=== PATIENT | female | born 1930 | race Caucasian/White ===

== ENCOUNTER 2017-04-15 09:53 | Emergency (ER) | payer MEDICARE ==
[2017-04-15] MEDS ORDERED: Sodium Chloride 0.9% 1000 ML 1,000 ML IV STA ×2 (10:07→11:00)
--- NOTE | 2017-04-15 10:11 | ERPHSYRPT ---
- History of Present Illness Time Seen by Provider: 04/15/17 09:57 Source: patient Exam Limitations: no limitations Patient Subjective Stated Complaint: fell last night around 10pm. was unable to get up. used help button but it was not working. states legs feel wobbly. unsure if she passed out. Triage Nursing Assessment: patient a/o times three. skin w/d, color pale. resp easy. denies any pain except soreness from crawling around on the floor all night. states has chronic back pain. valle without difficulty. rukhsana. Physician History: FOR THE PAST MONTH PT HAS BEEN STUMBLING WITH WEAKNESS IN THE LEGS; FOR THE PAST 3 DAYS PT HAS HAD A NON-PRODUCTIVE COUGH. ABOUT 12 HOURS AGO PT GOT UP TO GO TO THE BATHROOM AND AGAIN HER LEGS BECAME WEAK WITH PT FALLING ON THE FLOOR. PT PRESSED HER HELP BUTTON BUT IT DID NOT WORK PROPERLY. PT STATES SHE IS SORE ALL OVER AND SHE HAS CHRONIC BACK PAIN. PT DENIES SHORTNESS OF AIR, FEVER, VOMITING, NUMBNESS. Allergies/Adverse Reactions: No Known Drug Allergies Allergy (Verified 04/15/17 10:11) Home Medications: Lisinopril [Prinivil] 25 mg PO DAILY 02/16/12 [History] Aspirin [Aspirin EC] 81 mg PO DAILY 11/24/14 [History] Fluoxetine HCl [Prozac] 20 mg PO DAILY 11/24/14 [History] Levothyroxine Sodium 25 Mcg [Synthroid 25 Mcg] 25 mcg PO DAILY 11/24/14 [ History] Antiox.mv No.10/Omeg3s/Lut/Rdew [I-Caps with Lutein-[place] 3 Sfg] 1 each PO DAILY 04/15/17 [History] Cyclobenzaprine HCl [Flexeril] 5 mg PO BIDPRN PRN 04/15/17 [History] Lactobacillus Rhamnosus GG [Culturelle] 1 each PO DAILY 04/15/17 [History] Lisinopril [Lisinopril] 10 mg PO DAILY 04/15/17 [History] Tramadol HCl 50 mg [Ultram 50 mg] 50 mg PO Q6HPRN PRN 04/15/17 [History] Hx Tetanus, Diphtheria Vaccination/Date Given: No Hx Influenza Vaccination/Date Given: Yes Hx Pneumococcal Vaccination/Date Given: Yes Immunizations Up to Date: Yes - Review of Systems Constitutional: No Fever Respiratory: Cough, No Dyspnea Abdominal/Gastrointestinal: No Vomiting Neurological: Other (WEAKNESS IN THE LEGS FOR THE PAST MONTH.) All Other Systems: Reviewed and Negative - Past Medical History Pertinent Past Medical History: Yes Neurological History: No Pertinent History ENT History: Cataracts Cardiac History: Other Respiratory History: No Pertinent History Endocrine Medical History: Hypothyroidism Musculoskeletal History: No Pertinent History, Arthritis GI Medical History: No Pertinent History, GERD History: No Pertinent History Psycho-Social History: No Pertinent History Female Reproductive Disorders: No Pertinent History Other Medical History: pacemaker - Past Surgical History Past Surgical History: Yes Neuro Surgical History: No Pertinent History Cardiac: Cardiac Catheterization, Pacemaker Respiratory: No Pertinent History Gastrointestinal: Appendectomy, Cholecystectomy Genitourinary: No Pertinent History Musculoskeletal: Orthopedic Surgery Female Surgical History: Hysterectomy Other Surgical History: tonsils - Social History Smoking Status: Former smoker Exposure to second hand smoke: Yes Drug Use: none Patient Lives Alone: Yes - Female History Hx Now: No - Nursing Vital Signs Nursing Vital Signs: Initial Vital Signs Temperature 97.3 F 04/15/17 09:54 Pulse Rate 77 04/15/17 09:54 Respiratory Rate 16 04/15/17 09:54 Blood Pressure 154/75 04/15/17 09:54 O2 Sat by Pulse Oximetry 93 L 04/15/17 09:54 Pain Scale Pain Intensity 0 - Physical Exam General Appearance: alert Eye Exam: PERRL/EOMI, eyes nml inspection Ears, Nose, Throat Exam: TMs normal, dry mucous membranes, pharyngeal erythema ( MINIMAL) Neck Exam: normal inspection, No carotid bruit Respiratory Exam: lungs clear Cardiovascular Exam: normal heart sounds Gastrointestinal/Abdomen Exam: soft, normal bowel sounds, No tenderness Back Exam: normal inspection, No vertebral tenderness Extremity Exam: normal inspection, normal range of motion, No pedal edema Neurologic Exam: alert, oriented x 3, cooperative, normal mood/affect, sensation nml, No motor deficits Skin Exam: warm, dry SpO2 Interpretation: normal SpO2: 93 Oxygen Delivery: Room Air - Course Nursing assessment & vital signs reviewed: Yes EKG Interpreted by Me: RATE (72), Sinus Rhythm, Left Bradford Deviation, NORMAL INTERVALS - Radiology Exams Chest X-ray Interpretation: Interpreted by me, No Pneumonia - CT Exams Head CT Interpretation: Tele-radiologist Report (CHRONIC CHANGES. SINUS DISEASE.) Ordered Tests: Active Orders 24 hr Category Date Time Status EKG-ER Only STAT Care 04/15/17 10:07 Active IV Insertion STAT Care 04/15/17 10:07 Active CHEST 2 VIEWS (PA AND LAT) Stat Exams 04/15/17 10:08 Taken HEAD WITHOUT CONTRAST [CT] Stat Exams 04/15/17 10:44 Taken CBC W DIFF Stat Lab 04/15/17 10:00 Completed CMP Stat Lab 04/15/17 10:00 Completed CULTURE, THROAT Stat Lab 04/15/17 10:20 Received CULTURE,URINE Stat Lab 04/15/17 11:30 Received [place] Screen Stat Lab 04/15/17 10:00 Completed STREP SCREEN-BETA A Stat Lab 04/15/17 10:20 Completed TROPONIN Q3H Lab 04/15/17 10:00 Completed TROPONIN Q3H Lab 04/15/17 13:15 Ordered TROPONIN Q3H Lab 04/15/17 16:15 Ordered TROPONIN Q3H Lab 04/15/17 19:15 Ordered TROPONIN Q3H Lab 04/15/17 22:15 Ordered UA W/ MICROSCOPIC Stat Lab 04/15/17 11:30 Completed Medication Summary Discontinued Medications Generic Name Dose Route Start Last Admin Trade Name Freq PRN Reason Stop Dose Admin Sodium Chloride 1,000 mls @ 999 mls/hr 04/15/17 10:07 04/15/17 10:35 Sodium Chloride 0.9% 1000 Ml IV 04/15/17 11:07 999 mls/hr .Q1H1M STA Administration Sodium Chloride Confirm 04/15/17 10:28 Sodium Chloride 0.9% 1000 Ml Administered 04/15/17 10:29 Dose 1,000 mls @ ud .ROUTE .STK-MED ONE Sodium Chloride 1,000 mls @ 999 mls/hr 04/15/17 11:00 04/15/17 12:08 Sodium Chloride 0.9% 1000 Ml IV 04/15/17 12:00 999 mls/hr .Q1H1M STA Administration Ceftriaxone Sodium/Dextrose 1 g in 50 mls @ 100 mls/hr 04/15/17 11:28 11:34 Rocephin 1 Gm-D5w 50 Ml Bag IV 04/15/17 11:57 100 mls/hr STAT STA Administration Ceftriaxone Sodium/Dextrose Confirm 04/15/17 11:33 Rocephin 1 Gm-D5w 50 Ml Bag Administered 04/15/17 11:34 Dose 1 g in 50 mls @ ud IV .STK-MED ONE Sodium Chloride Confirm 04/15/17 12:07 Sodium Chloride 0.9% 1000 Ml Administered 04/15/17 12:08 Dose 1,000 mls @ ud .ROUTE .STK-MED ONE Lab/Rad Data: Laboratory Result Diagrams 04/15/17 10:00 04/15/17 10:00 Laboratory Results 04/15/17 04/15/17 04/15/17 Range/Units 11:30 10:20 10:20 WBC (4.0-10.5) K/mm3 RBC (4.1-5.4) M/mm3 Hgb (12.0-16.0) gm/dl Hct (35-47) % MCV (78-100) fl MCH (26-32) pg MCHC (32-36) g/dl RDW (11.5-14.0) % Plt Count (150-450) K/mm3 MPV (6-9.5) fl Gran % (36.0-66.0) % Lymphocytes % (24.0-44.0) % Monocytes % (0.0-12.0) % Eosinophils % (0.00-5.0) % Basophils % (0.0-0.4) % Basophils # (0-0.4) Sodium (136-145) mEq/L Potassium (3.5-5.1) mEq/L Chloride (98-107) mEq/L Carbon Dioxide (21-32) mEq/L Anion Gap (5-15) MEQ/L BUN (9-20) mg/dL Creatinine (0.55-1.30) mg/dl Estimated GFR ML/MIN Glucose (70-110) MG/DL Calcium (8.5-10.1) mg/dL Total Bilirubin (0.2-1.0) mg/dL AST (15-37) U/L ALT (12-78) U/L Alkaline Phosphatase (46-116) U/L Troponin I (0.000-0.056) ng/ml Serum Total Protein (6.4-8.2) gm/dL Albumin (3.4-5.0) g/dL Ur Collection Type VOID Urine Color YELLOW (YELLOW) Urine Appearance HAZY (CLEAR) Urine pH 5.0 (5-6) Ur Specific Winder 1.020 (1.005-1.025) Urine Protein NEGATIVE (Negative) Urine Ketones SMALL (NEGATIVE) Urine Blood 250 (0-5) Oscar/ul Urine Nitrite NEGATIVE (NEGATIVE) Urine Bilirubin NEGATIVE (NEGATIVE) Urine Urobilinogen NORMAL (0-1) mg/dL Ur Leukocyte Esterase TRACE (NEGATIVE) Urine Microscopic RBC 5-10 (0-2) /HPF Urine Microscopic WBC 2-5 (0-5) /HPF Ur Epithelial Cells FEW (FEW) /HPF Urine Bacteria MODERATE (NEGATIVE) /HPF Hyaline Casts 5-10 (0-2) /LPF Urine Mucus SLIGHT (NEGATIVE) /HPF Urine Culture Reflexed YES (NO) Urine Glucose NEGATIVE (NEGATIVE) mg/dL Monoscreen (Negative) Influenza Type A Ag NEGATIVE (NEGATIVE) Influenza Type B Ag NEGATIVE (NEGATIVE) RSV (PCR) NEGATIVE (Negative) Streptococcus Screen NEGATIVE (Negative) Specimen Received 04/15/17 1130 04/15/17 04/15/17 04/15/17 Range/Units 10:00 10:00 10:00 WBC (4.0-10.5) K/mm3 RBC (4.1-5.4) M/mm3 Hgb (12.0-16.0) gm/dl Hct (35-47) % MCV (78-100) fl MCH (26-32) pg MCHC (32-36) g/dl RDW (11.5-14.0) % Plt Count (150-450) K/mm3 MPV (6-9.5) fl Gran % (36.0-66.0) % Lymphocytes % (24.0-44.0) % Monocytes % (0.0-12.0) % Eosinophils % (0.00-5.0) % Basophils % (0.0-0.4) % Basophils # (0-0.4) Sodium 139 (136-145) mEq/L Potassium 4.4 (3.5-5.1) mEq/L Chloride 103 (98-107) mEq/L Carbon Dioxide 25.4 (21-32) mEq/L Anion Gap 15.0 (5-15) MEQ/L BUN 34 H (9-20) mg/dL Creatinine 1.56 H (0.55-1.30) mg/dl Estimated GFR 34 ML/MIN Glucose 102 (70-110) MG/DL Calcium 9.2 (8.5-10.1) mg/dL Total Bilirubin 0.40 (0.2-1.0) mg/dL AST 18 (15-37) U/L ALT 18 (12-78) U/L Alkaline Phosphatase 117 H (46-116) U/L Troponin I < 0.017 (0.000-0.056) ng/ml Serum Total Protein 7.4 (6.4-8.2) gm/dL Albumin 3.6 (3.4-5.0) g/dL Ur Collection Type Urine Color (YELLOW) Urine Appearance (CLEAR) Urine pH (5-6) Ur Specific Winder (1.005-1.025) Urine Protein (Negative) Urine Ketones (NEGATIVE) Urine Blood (0-5) Oscar/ul Urine Nitrite (NEGATIVE) Urine Bilirubin (NEGATIVE) Urine Urobilinogen (0-1) mg/dL Ur Leukocyte Esterase (NEGATIVE) Urine Microscopic RBC (0-2) /HPF Urine Microscopic WBC (0-5) /HPF Ur Epithelial Cells (FEW) /HPF Urine Bacteria (NEGATIVE) /HPF Hyaline Casts (0-2) /LPF Urine Mucus (NEGATIVE) /HPF Urine Culture Reflexed (NO) Urine Glucose (NEGATIVE) mg/dL Monoscreen NEGATIVE (Negative) Influenza Type A Ag (NEGATIVE) Influenza Type B Ag (NEGATIVE) RSV (PCR) (Negative) Streptococcus Screen (Negative) Specimen Received 04/15/17 Range/Units 10:00 WBC 8.4 (4.0-10.5) K/mm3 RBC 4.28 (4.1-5.4) M/mm3 Hgb 12.1 (12.0-16.0) gm/dl Hct 38.5 (35-47) % MCV 90.0 (78-100) fl MCH 28.3 (26-32) pg MCHC 31.4 L (32-36) g/dl RDW 13.5 (11.5-14.0) % Plt Count 264 (150-450) K/mm3 MPV 11.4 H (6-9.5) fl Gran % 65.9 (36.0-66.0) % Lymphocytes % 17.7 L (24.0-44.0) % Monocytes % 15.1 H (0.0-12.0) % Eosinophils % 0.8 (0.00-5.0) % Basophils % 0.5 (0.0-0.4) % Basophils # 0.04 (0-0.4) Sodium (136-145) mEq/L Potassium (3.5-5.1) mEq/L Chloride (98-107) mEq/L Carbon Dioxide (21-32) mEq/L Anion Gap (5-15) MEQ/L BUN (9-20) mg/dL Creatinine (0.55-1.30) mg/dl Estimated GFR ML/MIN Glucose (70-110) MG/DL Calcium (8.5-10.1) mg/dL Total Bilirubin (0.2-1.0) mg/dL AST (15-37) U/L ALT (12-78) U/L Alkaline Phosphatase (46-116) U/L Troponin I (0.000-0.056) ng/ml Serum Total Protein (6.4-8.2) gm/dL Albumin (3.4-5.0) g/dL Ur Collection Type Urine Color (YELLOW) Urine Appearance (CLEAR) Urine pH (5-6) Ur Specific Winder (1.005-1.025) Urine Protein (Negative) Urine Ketones (NEGATIVE) Urine Blood (0-5) Oscar/ul Urine Nitrite (NEGATIVE) Urine Bilirubin (NEGATIVE) Urine Urobilinogen (0-1) mg/dL Ur Leukocyte Esterase (NEGATIVE) Urine Microscopic RBC (0-2) /HPF Urine Microscopic WBC (0-5) /HPF Ur Epithelial Cells (FEW) /HPF Urine Bacteria (NEGATIVE) /HPF Hyaline Casts (0-2) /LPF Urine Mucus (NEGATIVE) /HPF Urine Culture Reflexed (NO) Urine Glucose (NEGATIVE) mg/dL Monoscreen (Negative) Influenza Type A Ag (NEGATIVE) Influenza Type B Ag (NEGATIVE) RSV (PCR) (Negative) Streptococcus Screen (Negative) Specimen Received - Departure Time of Disposition: 12:18 Departure Disposition: Home Clinical Impression: DEHYDRATION, SINUSITIS, UTI, HYPOTHYROIDISM, ARTHRITIS, GERD, WEAKNESS Condition: Fair Critical Care Time: No Referrals: KIERRA PETERSEN [Primary Care Provider] - Instructions: Dehydration -- Adult, Sinusitis, Prevent Falls Additional Instructions: FOLLOW UP WITH PRIVATE DOCTOR TOMORROW. DRINK MORE WATER. Prescriptions: Smz/Tmp Ds Tablet [Bactrim Ds Tablet] 1 udtab PO BID #20 tablet
[2017-04-15 10:20] LABS: BASOPHIL % 0.5 % (0.0-0.4); Basophil (Absolute #) 0.04 (0-0.4); Eosinophil % 0.8 % (0.00-5.0); Eosinophil (Absolute #) 0.07 (0-0.5); Granulocytes % 65.9 % (36.0-66.0); Hematocrit 38.5 % (35-47); Hemoglobin 12.1 gm/dl (12.0-16.0); Lymphocyte (Absolute #) 1.48 (1.0-4.6); Lymphocytes % 17.7 % (24.0-44.0); Mean Corpuscular Hemoglobin 28.3 pg (26-32); Mean Corpuscular Hgb Concent. 31.4 g/dl (32-36); Mean Platelet Volume 11.4 fl (6-9.5); Monocyte (Absolute #) 1.26 (0.0-1.3); Monocytes % 15.1 % (0.0-12.0); Platelet Count 264 K/mm3 (150-450); Red Blood Count 4.28 M/mm3 (4.1-5.4); Red Cell Distribution Width 13.5 % (11.5-14.0); White Blood Count 8.4 K/mm3 (4.0-10.5)
[2017-04-15] MEDS ORDERED: Sodium Chloride 0.9% 1000 ML 1,000 ML ONE ×2 (10:28→12:07)
[2017-04-15 10:43] LABS: ALBUMIN 3.6 g/dL (3.4-5.0); BILIRUBIN,TOTAL 0.4 mg/dL (0.2-1.0); Calcium 9.2 mg/dL (8.5-10.1); Carbon Dioxide 25.4 mEq/L (21-32); Creatinine 1 1.56 mg/dl (0.55-1.30); Potassium 4.4 mEq/L (3.5-5.1); Total Protein 7.4 gm/dL (6.4-8.2)
[2017-04-15 11:20] VITALS: PULSE 70
[2017-04-15 11:27] LABS: INFLUENZA A NEGATIVE (NEGATIVE); INFLUENZA B NEGATIVE (NEGATIVE); RESPIRATORY SYNCTIAL VIRUS NEGATIVE (Negative)
[2017-04-15] MEDS ORDERED: ROCEPHIN 1 Gm-D5w 50 ml Bag** 1 G/50 ML IVPB IV STA (11:28)
[2017-04-15] MEDS ORDERED: ROCEPHIN 1 Gm-D5w 50 ml Bag** 1 G/50 ML IVPB IV ONE (11:33)
[2017-04-15 12:01] LABS: Appearance HAZY (CLEAR)
[2017-04-15 12:02] LABS: Bacteria MODERATE /HPF (NEGATIVE); Bilirubin NEGATIVE (NEGATIVE); Blood 250 Ery/ul (0-5); Epithelial Cells FEW /HPF (FEW); Glucose NEGATIVE (NEGATIVE); Ketones SMALL (NEGATIVE); Leukocyte Esterase TRACE (NEGATIVE); Mucus SLIGHT /HPF (NEGATIVE); Nitrite NEGATIVE (NEGATIVE); Protein,Urine Dip NEGATIVE (Negative); Urobilinogen NORMAL mg/dL (0-1)
[2017-04-15 13:01] VITALS: BP 146/60; O2SAT 95
--- NOTE | 2017-04-15 20:27 | XRAY ---
Indication: Mental status change. Dizziness and weakness. Multiple contiguous axial images obtained through the head without contrast. Comparison: May 12, 2011. Again age-appropriate global atrophy and moderate periventricular degenerative micro-ischemia bilaterally. No acute intracranial hemorrhage, abnormal extra-axial fluid collection, or mass effect. Fourth ventricle is midline without hydrocephalus. Bony calvarium intact. Right ethmoid sinus mild mucosal thickening. Remaining visualized paranasal sinuses and mastoid air cells are clear. Impression: Nonacute senile brain. Incidental paranasal sinus disease. Comment: Preliminary interpretation was made by [facility]. No discrepancy.. CTDI 68.51
--- NOTE | 2017-04-15 20:30 | XRAY ---
Indication: Cough. Comparison: December 08, 2006. PA/lateral chest again demonstrates left base subsegmental atelectasis/scarring. Remaining lungs clear. Heart is not enlarged. New left-sided pacemaker. Bony thorax intact with new finding for old right humeral fracture and intact hardware. Impression: Nonacute hyperinflated chest with chronic features.
== END 2017-04-15 13:41 | disposition home or self-care (01) ==
LOC: ED 09:53
DX: E86.0 Dehydration (principal); J32.9 Chronic sinusitis, unspecified; N39.0 Urinary tract infection, site not specified; E03.9 Hypothyroidism, unspecified; M19.90 Unspecified osteoarthritis, unspecified site; K21.9 Gastro-esophageal reflux disease without esophagitis; R53.1 Weakness; W18.39XA Other fall on same level, initial encounter; Z79.899 Other long term (current) drug therapy
CPT/HCPCS: 36415; 70450; 71020; 80053; 81000; 84484; 85025; 86308; 87070; 87086; 87430; 87631; 93005; 96360; 96361; 96365; 99284; J0696

== ENCOUNTER 2017-08-31 16:38 | Observation (INO) | payer MEDICARE, OTHER ==
--- NOTE | 2017-08-31 17:12 | ERPHSYRPT ---
- History of Present Illness Time Seen by Provider: 08/31/17 17:04 Source: patient, family Exam Limitations: no limitations Patient Subjective Stated Complaint: Nausea, Vomiting, diarrhea beginning today. Denies other complaints Triage Nursing Assessment: Pt presents to the ED with complaints of nausea, vomiting and diarrhea beginning today. Pt denies other complaints at this time, no distress noted, skin pwd. Approximately 3-4 episodes of diarrhea today. Physician History: The patient is an 86-year-old female with her family who lives alone complaining that she wasn't feeling well yesterday evening and today she said nausea and several episodes of loose and watery diarrhea. At times she has been unable to make it to the bathroom before soiling herself. Earlier she had crampy abdominal pain but that has ceased. Earlier she also had overall body aches but now she feels fine. She's been lightheaded when she stands up. She is weak and unable to walk well. Her past medical history is significant for cardiac pacemaker for arrhythmia, hypertension, and hypothyroidism. Timing/Duration: today Severity: moderate Modifying Factors: Improves With: nothing Associated Symptoms: nausea, weakness, other (diarrhea), No vomiting Allergies/Adverse Reactions: No Known Drug Allergies Allergy (Verified 04/15/17 10:11) Home Medications: Aspirin [Aspirin EC] 81 mg PO DAILY 11/24/14 [History] Levothyroxine Sodium 25 Mcg [Synthroid 25 Mcg] 25 mcg PO DAILY 11/24/14 [ History] Lactobacillus Rhamnosus GG [Culturelle] 1 each PO DAILY 04/15/17 [History] Lisinopril [Lisinopril] 10 mg PO DAILY 04/15/17 [History] Hx Tetanus, Diphtheria Vaccination/Date Given: Yes Hx Influenza Vaccination/Date Given: Yes Hx Pneumococcal Vaccination/Date Given: Yes Immunizations Up to Date: Yes - Review of Systems Constitutional: Weakness Eyes: No Symptoms Ears, Nose, & Throat: No Symptoms Respiratory: No Cough, No Dyspnea Cardiac: No Chest Pain, No Edema, No Syncope Abdominal/Gastrointestinal: Abdominal Pain, Nausea, Diarrhea Genitourinary Symptoms: No Dysuria Musculoskeletal: No Back Pain, No Neck Pain Skin: No Rash Neurological: No Dizziness, No Focal Weakness, No Sensory Changes Psychological: No Symptoms Endocrine: No Symptoms Hematologic/Lymphatic: No Symptoms Immunological/Allergic: No Symptoms All Other Systems: Reviewed and Negative - Past Medical History Pertinent Past Medical History: Yes Neurological History: No Pertinent History ENT History: Cataracts Cardiac History: Other Respiratory History: No Pertinent History Endocrine Medical History: Adrenal Insufficiency, Hypothyroidism Musculoskeletal History: Osteoarthritis GI Medical History: No Pertinent History, GERD History: No Pertinent History Psycho-Social History: No Pertinent History Female Reproductive Disorders: No Pertinent History Other Medical History: Pacemaker - Past Surgical History Past Surgical History: Yes Neuro Surgical History: No Pertinent History Cardiac: Cardiac Catheterization, Pacemaker Respiratory: No Pertinent History Gastrointestinal: Appendectomy, Cholecystectomy Genitourinary: No Pertinent History Musculoskeletal: Orthopedic Surgery Female Surgical History: Hysterectomy Other Surgical History: tonsils - Social History Smoking Status: Never smoker Exposure to second hand smoke: No Drug Use: none Patient Lives Alone: Yes - Female History Hx Now: No - Nursing Vital Signs Nursing Vital Signs: Initial Vital Signs Temperature 99.6 F 08/31/17 16:45 Pulse Rate 82 08/31/17 16:45 Respiratory Rate 15 08/31/17 16:45 Blood Pressure 140/58 08/31/17 16:45 O2 Sat by Pulse Oximetry 93 L 08/31/17 16:45 Pain Scale Pain Intensity 4 - Physical Exam General Appearance: no apparent distress, alert Eye Exam: PERRL/EOMI, eyes nml inspection Ears, Nose, Throat Exam: normal ENT inspection, TMs normal, pharynx normal, dry mucous membranes Neck Exam: normal inspection, non-tender, supple, full range of motion Respiratory Exam: normal breath sounds, lungs clear, No respiratory distress Cardiovascular Exam: regular rate/rhythm, normal peripheral pulses, murmur Gastrointestinal/Abdomen Exam: soft, normal bowel sounds, No tenderness, No mass Pelvic Exam: not done Rectal Exam: not done Back Exam: normal inspection, normal range of motion, No CVA tenderness, No vertebral tenderness Extremity Exam: normal inspection, normal range of motion, pelvis stable Neurologic Exam: alert, oriented x 3, cooperative, normal mood/affect, nml cerebellar function, nml station & gait, sensation nml, No motor deficits Skin Exam: normal color, warm, dry, No rash Lymphatic Exam: No adenopathy SpO2 Interpretation: normal SpO2: 93 Oxygen Delivery: Room Air Ordered Tests: Active Orders 24 hr Category Date Time Status IV Insertion STAT Care 08/31/17 17:15 Active Orthostatic Vital Signs STAT Care 08/31/17 17:16 Active KUB Stat Exams 08/31/17 17:15 Taken BMP Stat Lab 08/31/17 17:00 Completed CBC W DIFF Stat Lab 08/31/17 17:00 Completed Lactic Acid Stat Lab 08/31/17 17:15 Ordered Lactic Acid Urgent Lab 08/31/17 17:05 Completed Medication Summary Generic Name Dose Route Start Last Admin Trade Name Freq PRN Reason Stop Dose Admin Sodium Chloride 1,000 mls @ 999 mls/hr 08/31/17 17:15 08/31/17 17:26 Sodium Chloride 0.9% 1000 Ml IV 08/31/17 18:15 999 mls/hr .Q1H1M STA Administration Discontinued Medications Generic Name Dose Route Start Last Admin Trade Name Freq PRN Reason Stop Dose Admin Sodium Chloride Confirm 08/31/17 17:23 Sodium Chloride 0.9% 1000 Ml Administered 08/31/17 17:24 Dose 1,000 mls @ ud .ROUTE .STK-MED ONE Ondansetron HCl 4 mg 08/31/17 17:15 08/31/17 17:25 Zofran 4 Mg/2 Ml Vial IV 08/31/17 17:16 4 mg STAT ONE Administration Ondansetron HCl Confirm 08/31/17 17:23 Zofran 4 Mg/2 Ml Vial Administered 08/31/17 17:24 Dose 4 mg .ROUTE .STK-MED ONE Lab/Rad Data: Laboratory Result Diagrams 08/31/17 17:00 08/31/17 17:00 Laboratory Results 08/31/17 08/31/17 08/31/17 Range/Units 17:05 17:00 17:00 WBC 11.6 H (4.0-10.5) K/mm3 RBC 4.17 (4.1-5.4) M/mm3 Hgb 12.5 (12.0-16.0) gm/dl Hct 38.2 (35-47) % MCV 91.6 (78-100) fl MCH 30.0 (26-32) pg MCHC 32.7 (32-36) g/dl RDW 14.6 H (11.5-14.0) % Plt Count 208 (150-450) K/mm3 MPV 11.5 H (6-9.5) fl Gran % 79.7 H (36.0-66.0) % Eos # (Auto) 0.03 (0-0.5) Absolute Lymphs (auto) 1.12 (1.0-4.6) Absolute Monos (auto) 1.17 (0.0-1.3) Lymphocytes % 9.6 L (24.0-44.0) % Monocytes % 10.1 (0.0-12.0) % Eosinophils % 0.3 (0.00-5.0) % Basophils % 0.3 (0.0-0.4) % Absolute Granulocytes 9.27 H (1.4-6.9) Basophils # 0.04 (0-0.4) Sodium 134 L (137-145) mmol/L Potassium 4.5 (3.5-5.1) mmol/L Chloride 102 (98-107) mmol/L Carbon Dioxide 22 (22-30) mmol/L Anion Gap 14.7 (5-15) MEQ/L BUN 25 H (7-17) mg/dL Creatinine 1.29 H (0.52-1.04) mg/dL Estimated GFR 41.7 ML/MIN Glucose 125 H (74-106) mg/dL Lactic Acid 0.9 (0.4-2.0) Calcium 9.0 (8.4-10.2) mg/dL - Progress Progress: improved Progress Note: 08/31/17 18:10 Pt given zofran 4 mg and fluids by IV with improvement. Discussed with : Charles Will see patient in: hospital (observation) Counseled pt/family regarding: lab results, diagnosis - Departure Time of Disposition: 18:11 Departure Disposition: Observation (per Dr Soto for Dr Newton) Clinical Impression: Diarrhea, Orthostatic hypotension, Dehydration Condition: Stable Critical Care Time: No Referrals: KIERRA NEWTON [Primary Care Provider] -
[2017-08-31] MEDS ORDERED: Sodium Chloride 0.9% 1000 ML 1,000 ML IV STA (17:15)
[2017-08-31] MEDS ORDERED: Zofran 4 MG/2 ML VIAL IV ONE (17:15)
[2017-08-31 17:20] LABS: BASOPHIL % 0.3 % (0.0-0.4); Basophil (Absolute #) 0.04 (0-0.4); Eosinophil % 0.3 % (0.00-5.0); Eosinophil (Absolute #) 0.03 (0-0.5); Granulocyte Absolute (ANC) 9.27 (1.4-6.9); Granulocytes % 79.7 % (36.0-66.0); Hematocrit 38.2 % (35-47); Hemoglobin 12.5 gm/dl (12.0-16.0); Lymphocyte (Absolute #) 1.12 (1.0-4.6); Lymphocytes % 9.6 % (24.0-44.0); Mean Cell Volume 91.6 fl (78-100); Mean Corpuscular Hgb Concent. 32.7 g/dl (32-36); Mean Platelet Volume 11.5 fl (6-9.5); Monocyte (Absolute #) 1.17 (0.0-1.3); Monocytes % 10.1 % (0.0-12.0); Platelet Count 208 K/mm3 (150-450); Red Blood Count 4.17 M/mm3 (4.1-5.4); Red Cell Distribution Width 14.6 % (11.5-14.0); White Blood Count 11.6 K/mm3 (4.0-10.5)
[2017-08-31] MEDS ORDERED: Sodium Chloride 0.9% 1000 ML 1,000 ML ONE (17:23)
[2017-08-31] MEDS ORDERED: Zofran 4 MG/2 ML VIAL ONE (17:23)
[2017-08-31 17:44] LABS: ANION GAP 14.7 MEQ/L (5-15); Creatinine 1 1.29 mg/dL (0.52-1.04); Potassium 4.5 mmol/L (3.5-5.1)
[2017-08-31] MEDS ORDERED: Zofran 4 MG/2 ML VIAL IV PRN (18:57)
[2017-08-31] MEDS: Sodium Chloride 0.9% 1000 ML 1,000 ML IV SCH (19:44)
[2017-08-31] MEDS: TYLENOL 325 MG PO PRN (20:57)
[2017-09-01 05:27] LABS: BASOPHIL % 0.2 % (0.0-0.4); Basophil (Absolute #) 0.02 (0-0.4); Eosinophil % 0.4 % (0.00-5.0); Eosinophil (Absolute #) 0.03 (0-0.5); Granulocyte Absolute (ANC) 6.31 (1.4-6.9); Granulocytes % 75.2 % (36.0-66.0); Hematocrit 34.8 % (35-47); Hemoglobin 11.1 gm/dl (12.0-16.0); Lymphocyte (Absolute #) 0.89 (1.0-4.6); Lymphocytes % 10.6 % (24.0-44.0); Mean Cell Volume 93.8 fl (78-100); Mean Corpuscular Hemoglobin 29.9 pg (26-32); Mean Corpuscular Hgb Concent. 31.9 g/dl (32-36); Mean Platelet Volume 10.9 fl (6-9.5); Monocyte (Absolute #) 1.14 (0.0-1.3); Monocytes % 13.6 % (0.0-12.0); Platelet Count 176 K/mm3 (150-450); Red Blood Count 3.71 M/mm3 (4.1-5.4); Red Cell Distribution Width 14.7 % (11.5-14.0); White Blood Count 8.4 K/mm3 (4.0-10.5)
[2017-09-01 05:40] LABS: ANION GAP 14.2 MEQ/L (5-15); Calcium 8.4 mg/dL (8.4-10.2); Creatinine 1 1.32 mg/dL (0.52-1.04); Potassium 4.7 mmol/L (3.5-5.1)
[2017-09-01] MEDS: Sodium Chloride 0.9% 1000 ML 1,000 ML IV SCH ×2 (05:51→15:37)
--- NOTE | 2017-09-01 08:34 | XRAY ---
Indication: Nausea, diarrhea, and weakness. Comparison: None KUB nonacute and nonobstructed with previous cholecystectomy and mild scattered vascular calcifications. Solid organs unremarkable. 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 Impression: Nonacute KUB with chronic features.
[2017-09-01] MEDS: Zestril 10 MG PO SCH (09:33)
[2017-09-01] MEDS: SYNTHROID 25 MCG PO SCH (09:33)
[2017-09-01] MEDS: ECOTRIN 81 MG PO SCH (09:33)
[2017-09-01] MEDS: Acidophilus TABLET PO SCH (09:33)
[2017-09-01] MEDS: TYLENOL 325 MG PO PRN ×2 (09:37→19:25)
[2017-09-01] MEDS ORDERED: ECOTRIN 81 MG PO SCH (10:00)
[2017-09-01] MEDS ORDERED: LACTOBACILLUS RHAMNOSUS GG PO SCH (10:00)
[2017-09-01] MEDS ORDERED: SYNTHROID 25 MCG PO SCH (10:00)
[2017-09-01] MEDS ORDERED: Zestril 10 MG PO SCH (10:00)
--- NOTE | 2017-09-01 11:59 | PCM.HP ---
History of Present Illness - Chief Complaint Chief Complaint: dehydration/diarrhea History of Present Illness: is a 86 year old female who presented to the ER with a 2 day history of diarrhea and feeling poorly. She denies vomiting, no known fever. Feels weak , no abdominal pain but had some cramping originally. she denies recent antibiotic usage. - Review of Systems Constitutional: No Fever, No Chills Respiratory: No Cough, No Short Of Breath Cardiac: No Chest Pain, No Edema, No Syncope Abdominal/Gastrointestinal: Diarrhea, No Abdominal Pain, No Nausea, No Vomiting Genitourinary Symptoms: No Dysuria Skin: No Rash All Other Systems: Reviewed and Negative Medications & Allergies Home Medications: Home Medication List Aspirin [Aspirin EC] 81 mg PO DAILY 11/24/14 [History Confirmed 08/31/17] Levothyroxine Sodium 25 Mcg [Synthroid 25 Mcg] 25 mcg PO DAILY 11/24/14 [ History Confirmed 08/31/17] Lactobacillus Rhamnosus GG [Culturelle] 1 each PO DAILY 04/15/17 [History Confirmed 08/31/17] Lisinopril [Lisinopril] 10 mg PO DAILY 04/15/17 [History Confirmed 08/31/17] Allergies/Adverse Reactions: Allergies Allergy/AdvReac Type Severity Reaction Status Date / Time No Known Drug Allergies Allergy Verified 04/15/17 10:11 - Past Medical History Past Medical History: Yes Neurological History: No Pertinent History ENT History: Cataracts Cardiac History: Other Respiratory History: No Pertinent History Endocrine Medical History: Adrenal Insufficiency, Hypothyroidism Musculoskelatal History: Osteoarthritis GI Medical History: No Pertinent History, GERD History: No Pertinent History Pyscho-Social History: No Pertinent History Reproductive Disorders: No Pertinent History Comment: Pacemaker - Female History Are you now?: No - Past Surgical History Past Surgical History: Yes Neuro Surgical History: No Pertinent History Cardiac History: Cardiac Catheterization, Pacemaker Respiratory Surgery: No Pertinent History GI Surgical History: Appendectomy, Cholecystectomy Genitourinary Surgical Hx: No Pertinent History Musculskeletal Surgical Hx: Orthopedic Surgery Female Surgical History: Hysterectomy Other Surgical History: shoulder - Social History Smoking Status: Never smoker Exposure to second hand smoke: No Alcohol: None Drug Use: none - Physical Exam Vital Signs: Vital Signs - 24 hr Temp Pulse Resp BP Pulse Ox 09/01/17 07:23 98.3 F 69 18 116/53 95 09/01/17 04:20 98.1 F 71 18 128/61 95 09/01/17 00:00 98.5 F 64 18 116/56 94 L 08/31/17 20:04 100.1 F 101 H 18 126/58 90 L 08/31/17 18:15 93 L 08/31/17 18:10 70 16 138/68 98 08/31/17 16:45 99.6 F 82 15 140/58 93 L Oxygen-Last 24 hours O2 Percentage 2 Liters = 28% O2 Percentage 2 Liters = 28% Oxygen Flowrate (L/min)-RT 2 General Appearance: no apparent distress, alert Respiratory Exam: normal breath sounds, lungs clear, No respiratory distress Cardiovascular Exam: regular rate/rhythm, normal heart sounds, normal peripheral pulses Gastrointestinal/Abdomen Exam: soft, normal bowel sounds, No tenderness, No mass Extremity Exam: normal inspection, normal range of motion, pelvis stable Skin Exam: normal color, warm, dry, No rash Results - Labs Lab/Micro Results: Lab Results-Last 24 Hours 09/01/17 09/01/17 Range/Units 05:20 05:20 WBC 8.4 (4.0-10.5) K/mm3 RBC 3.71 L (4.1-5.4) M/mm3 Hgb 11.1 L (12.0-16.0) gm/dl Hct 34.8 L (35-47) % MCV 93.8 (78-100) fl MCH 29.9 (26-32) pg MCHC 31.9 L (32-36) g/dl RDW 14.7 H (11.5-14.0) % Plt Count 176 (150-450) K/mm3 MPV 10.9 H (6-9.5) fl Gran % 75.2 H (36.0-66.0) % Eos # (Auto) 0.03 (0-0.5) Absolute Lymphs (auto) 0.89 L (1.0-4.6) Absolute Monos (auto) 1.14 (0.0-1.3) Lymphocytes % 10.6 L (24.0-44.0) % Monocytes % 13.6 H (0.0-12.0) % Eosinophils % 0.4 (0.00-5.0) % Basophils % 0.2 (0.0-0.4) % Absolute Granulocytes 6.31 (1.4-6.9) Basophils # 0.02 (0-0.4) Sodium 139 (137-145) mmol/L Potassium 4.7 (3.5-5.1) mmol/L Chloride 106 (98-107) mmol/L Carbon Dioxide 24 (22-30) mmol/L Anion Gap 14.2 (5-15) MEQ/L BUN 25 H (7-17) mg/dL Creatinine 1.32 H (0.52-1.04) mg/dL Estimated GFR 40.7 ML/MIN Glucose 112 H (74-106) mg/dL Calcium 8.4 (8.4-10.2) mg/dL - Other Procedures and Tests Respiratory Therapy 09/01/17 03:53 Oxygen NASAL CANNULA 2 lpm Assessment/Plan (1) Dehydration Current Visit: Yes Status: Acute Assessment & Plan: continue hydration Code(s): E86.0 - DEHYDRATION (2) Diarrhea Current Visit: Yes Status: Acute Assessment & Plan: ordered stool for c diff and stool culture Code(s): R19.7 - DIARRHEA, UNSPECIFIED (3) Orthostatic hypotension Current Visit: Yes Status: Acute Code(s): I95.1 - ORTHOSTATIC HYPOTENSION
[2017-09-01 21:27] LABS: 027 TOX PROD PRESUMPTIVE NEGATIVE (NEGATIVE); TOXIGENIC C. DIFF ORG NEGATIVE (NEGATIVE)
[2017-09-02] MEDS: Sodium Chloride 0.9% 1000 ML 1,000 ML IV SCH ×3 (00:24→19:06)
[2017-09-02 05:27] LABS: BASOPHIL % 0.5 % (0.0-0.4); Basophil (Absolute #) 0.03 (0-0.4); Eosinophil % 2.3 % (0.00-5.0); Eosinophil (Absolute #) 0.15 (0-0.5); Granulocyte Absolute (ANC) 3.65 (1.4-6.9); Granulocytes % 57.2 % (36.0-66.0); Hematocrit 32.6 % (35-47); Hemoglobin 10.2 gm/dl (12.0-16.0); Lymphocyte (Absolute #) 1.33 (1.0-4.6); Lymphocytes % 20.8 % (24.0-44.0); Mean Cell Volume 95.3 fl (78-100); Mean Corpuscular Hemoglobin 29.8 pg (26-32); Mean Corpuscular Hgb Concent. 31.3 g/dl (32-36); Mean Platelet Volume 11.2 fl (6-9.5); Monocyte (Absolute #) 1.23 (0.0-1.3); Monocytes % 19.2 % (0.0-12.0); Platelet Count 190 K/mm3 (150-450); Red Blood Count 3.42 M/mm3 (4.1-5.4); Red Cell Distribution Width 14.6 % (11.5-14.0); White Blood Count 6.4 K/mm3 (4.0-10.5)
[2017-09-02 05:41] LABS: ALBUMIN 2.7 g/dL (3.5-5.0); ALKALINE PHOSPHATASE 57 U/L (38-126); ANION GAP 10.6 MEQ/L (5-15); BILIRUBIN,TOTAL < 0.10 mg/dL (0.2-1.3); BLOOD UREA NITROGEN 21 mg/dL (7-17); CHLORIDE 110 mmol/L (98-107); Calcium 8.3 mg/dL (8.4-10.2); Carbon Dioxide 24 mmol/L (22-30); Creatinine 1 1.16 mg/dL (0.52-1.04); Glucose 107 mg/dL (74-106); Potassium 4.5 mmol/L (3.5-5.1); SGOT/AST 20 U/L (14-36); SGPT/ALT 14 U/L (0-35); SODIUM 140 mmol/L (137-145); Total Protein 5.2 g/dL (6.3-8.2)
--- NOTE | 2017-09-02 08:27 | PCM.NOTE ---
Date and Time: 09/02/17823 Subjective Assessment: patient still having terrible diarrhea all night, denies abdominal pain. no vomiting, no fever Objective Exam General Appearance: no apparent distress, alert Skin Exam: normal color, warm, dry Eye Exam: PERRL, EOMI, eyes nml inspection Respiratory Exam: normal breath sounds, lungs clear, No respiratory distress Cardiovascular Exam: regular rate/rhythm, normal heart sounds Gastrointestinal/Abdomen Exam: soft, No tenderness, No mass Extremity Exam: normal inspection, normal range of motion OBJECTIVE DATA Vital Signs: Vital Signs - 24 hr Temp Pulse Resp BP Pulse Ox 09/02/17 08:00 98.3 F 70 18 140/63 93 L 09/02/17 03:56 97.6 F 70 16 117/56 92 L 09/02/17 00:00 97.6 F 71 16 120/56 95 09/01/17 20:00 98.7 F 67 16 117/57 97 09/01/17 19:00 69 16 96 09/01/17 16:00 98.2 F 68 18 122/59 94 L 09/01/17 14:31 87 L 09/01/17 11:41 98.0 F 63 18 90/48 93 L Oxygen-Last 24 hours O2 Percentage 2 Liters = 28% O2 Percentage 2 Liters = 28% O2 Percentage 2 Liters = 28% Pain Assessment - Last Documented Pain Intensity 0 Pain Scale Used 0-10 Pain Scale Intake and Output: Intake & Output 08/30/17 08/31/17 09/01/17 09/02/17 11:59 11:59 11:59 11:59 Intake Total 1336 3386 Output Total 601 Balance 1336 4435 Weight 78.9 kg Lab Results: Lab Results-Last 24 Hours 09/01/17 09/02/17 09/02/17 Range/Units 20:30 05:00 05:00 WBC 6.4 (4.0-10.5) K/mm3 RBC 3.42 L (4.1-5.4) M/mm3 Hgb 10.2 L (12.0-16.0) gm/dl Hct 32.6 L (35-47) % MCV 95.3 (78-100) fl MCH 29.8 (26-32) pg MCHC 31.3 L (32-36) g/dl RDW 14.6 H (11.5-14.0) % Plt Count 190 (150-450) K/mm3 MPV 11.2 H (6-9.5) fl Gran % 57.2 (36.0-66.0) % Eos # (Auto) 0.15 (0-0.5) Absolute Lymphs (auto) 1.33 (1.0-4.6) Absolute Monos (auto) 1.23 (0.0-1.3) Lymphocytes % 20.8 L (24.0-44.0) % Monocytes % 19.2 H (0.0-12.0) % Eosinophils % 2.3 (0.00-5.0) % Basophils % 0.5 (0.0-0.4) % Absolute Granulocytes 3.65 (1.4-6.9) Basophils # 0.03 (0-0.4) Sodium 140 (137-145) mmol/L Potassium 4.5 (3.5-5.1) mmol/L Chloride 110 H (98-107) mmol/L Carbon Dioxide 24 (22-30) mmol/L Anion Gap 10.6 (5-15) MEQ/L BUN 21 H (7-17) mg/dL Creatinine 1.16 H (0.52-1.04) mg/dL Estimated GFR 47.2 ML/MIN Glucose 107 H (74-106) mg/dL Calcium 8.3 L (8.4-10.2) mg/dL Total Bilirubin < 0.10 L (0.2-1.3) mg/dL AST 20 (14-36) U/L ALT 14 (0-35) U/L Alkaline Phosphatase 57 (38-126) U/L Serum Total Protein 5.2 L (6.3-8.2) g/dL Albumin 2.7 L (3.5-5.0) g/dL Stl C. diff Tox B Gene NEGATIVE (NEGATIVE) C.difficile [id number] PRESUMPTIVE NEGATIVE (NEGATIVE) Assessment/Plan (1) Dehydration Current Visit: Yes Status: Acute Assessment & Plan: improved with hydration Code(s): E86.0 - DEHYDRATION (2) Diarrhea Current Visit: Yes Status: Acute Assessment & Plan: patient has had recurrent intermittent diarrhea, on review of records no cross- sectional abdominal imaging Code(s): R19.7 - DIARRHEA, UNSPECIFIED (3) Orthostatic hypotension Current Visit: Yes Status: Acute Code(s): I95.1 - ORTHOSTATIC HYPOTENSION
[2017-09-02] MEDS: Lomotil PO PRN ×3 (08:32→19:05)
[2017-09-02] MEDS: Zestril 10 MG PO SCH (09:31)
[2017-09-02] MEDS: SYNTHROID 25 MCG PO SCH (09:31)
[2017-09-02] MEDS: ECOTRIN 81 MG PO SCH (09:31)
[2017-09-02] MEDS: Acidophilus TABLET PO SCH (09:31)
[2017-09-02] MEDS: NYSTOP POWDER 15 GM TP SCH ×2 (09:56→21:18)
--- NOTE | 2017-09-02 12:27 | XRAY ---
Indication: Abdominal pain, cramping, and diarrhea 4 days. Multiple contiguous axial images obtained through the abdomen and pelvis without contrast as ordered. Comparison: None. Lung bases demonstrates bibasilar dependent atelectasis, left greater than right. Heart is not enlarged. Small hiatal hernia. Noncontrasted stomach and bowel loops appear nonobstructed. Ascending and transverse colon demonstrates mild pericolonic stranding favoring colitis. Sigmoid diverticulosis without diverticulitis. Previous reported appendectomy, cholecystectomy, and hysterectomy. No free fluid/air. Calcified splenic granulomas and right extrarenal pelvis. Tail of the pancreas demonstrates a 2 cm cyst. Remaining liver, pancreas, spleen, adrenal glands, kidneys, ureters, and bladder appear unremarkable for noncontrast exam. Mild aortoiliac calcifications without AAA. Osseous structures intact with moderate multilevel degenerative spondylosis and moderate levorotoscoliosis centered at L2. Impression: 1. Ascending and transverse colitis without complications. 2. Sigmoid diverticulosis. 3. Pancreatic tail indeterminate cyst. Comment: Preliminary interpretation was made by [facility]. No discrepancy. CTDI 22.59
[2017-09-02] MEDS: TYLENOL 325 MG PO PRN ×2 (12:54→21:17)
[2017-09-02] MEDS: FLAGYL 500 MG IVPB 500 MG/100 ML BAG IV SCH ×2 (13:28→21:17)
[2017-09-02] MEDS ORDERED: Levofloxacin 500MG/100ML D5W 500 MG/100 ML BAG IV SCH (15:00)
[2017-09-03] MEDS: Sodium Chloride 0.9% 1000 ML 1,000 ML IV SCH (05:18)
[2017-09-03] MEDS: FLAGYL 500 MG IVPB 500 MG/100 ML BAG IV SCH (05:19)
[2017-09-03 05:31] LABS: BASOPHIL % 0.5 % (0.0-0.4); Basophil (Absolute #) 0.03 (0-0.4); Eosinophil % 2.7 % (0.00-5.0); Eosinophil (Absolute #) 0.15 (0-0.5); Granulocyte Absolute (ANC) 3.23 (1.4-6.9); Granulocytes % 58.7 % (36.0-66.0); Hemoglobin 9.8 gm/dl (12.0-16.0); Lymphocyte (Absolute #) 1.19 (1.0-4.6); Lymphocytes % 21.6 % (24.0-44.0); Mean Cell Volume 93.7 fl (78-100); Mean Corpuscular Hemoglobin 29.6 pg (26-32); Mean Corpuscular Hgb Concent. 31.6 g/dl (32-36); Mean Platelet Volume 10.8 fl (6-9.5); Monocyte (Absolute #) 0.91 (0.0-1.3); Monocytes % 16.5 % (0.0-12.0); Platelet Count 208 K/mm3 (150-450); Red Blood Count 3.31 M/mm3 (4.1-5.4); Red Cell Distribution Width 14.4 % (11.5-14.0); White Blood Count 5.5 K/mm3 (4.0-10.5)
[2017-09-03 05:43] LABS: ALBUMIN 2.7 g/dL (3.5-5.0); ALKALINE PHOSPHATASE 54 U/L (38-126); BILIRUBIN,TOTAL < 0.10 mg/dL (0.2-1.3); BLOOD UREA NITROGEN 16 mg/dL (7-17); CHLORIDE 112 mmol/L (98-107); Calcium 8.4 mg/dL (8.4-10.2); Carbon Dioxide 21 mmol/L (22-30); Glucose 97 mg/dL (74-106); Potassium 4.2 mmol/L (3.5-5.1); SGOT/AST 18 U/L (14-36); SGPT/ALT 14 U/L (0-35); SODIUM 141 mmol/L (137-145); Total Protein 5.1 g/dL (6.3-8.2)
[2017-09-03] MEDS: Zestril 10 MG PO SCH (09:29)
[2017-09-03] MEDS: NYSTOP POWDER 15 GM TP SCH (09:29)
[2017-09-03] MEDS: Acidophilus TABLET PO SCH (09:29)
[2017-09-03] MEDS: SYNTHROID 25 MCG PO SCH (09:29)
[2017-09-03] MEDS: ECOTRIN 81 MG PO SCH (09:29)
[2017-09-03] MEDS: TYLENOL 325 MG PO PRN (09:31)
[2017-09-03 12:04] VITALS: PULSE 69
[2017-09-03 12:18] LABS: 027 TOX PROD PRESUMPTIVE NEGATIVE (NEGATIVE); TOXIGENIC C. DIFF ORG NEGATIVE (NEGATIVE)
[2017-09-03 15:45] LABS: Source: Feces
[2017-09-03 16:38] VITALS: BP 187/72; O2SAT 97
--- NOTE | 2017-09-04 12:47 | DS ---
DISCHARGE DIAGNOSIS: COLITIS. HOSPITAL COURSE: The patient is an 86 year-old white female who had problems with nausea, vomiting and diarrhea. She was seen in the emergency room. Her CT scan showed colitis. She was admitted to the hospital and given IV Flagyl and Levaquin. The patient did improve with this therapy to the point where she was felt to be ready for discharge home on 09/03/2017. She had one loose bowel movement in the past 24 to 36 hours. She was discharged home with instructions to take probiotics. She was not sent home with oral antibiotics at this point. She is afebrile. Her Clostridium difficile toxin test was tested twice and was negative each time including the day of discharge. Her laboratory on the date of discharge showed a sugar fasting of 97, BUN 16, creatinine 1.0, potassium 4.2. Liver enzymes were within normal range. White blood cell count 5,500, hemoglobin 9.8, PLT count 208,000. The patient was also instructed to take Imodium PRN for loose bowel movements. She will be seen in the office in four days for follow up and she is to call if she has any further problems in the interim.
== END 2017-09-03 12:17 | disposition home or self-care (01) ==
LOC: ED 16:38 → MED SURG 18:47
PROVIDERS: ADMIT Family Medicine; ATTEND Family Medicine
DX: K52.9 Noninfective gastroenteritis and colitis, unspecified (principal); E27.40 Unspecified adrenocortical insufficiency; M19.90 Unspecified osteoarthritis, unspecified site; K21.9 Gastro-esophageal reflux disease without esophagitis; E03.9 Hypothyroidism, unspecified; Z95.0 Presence of cardiac pacemaker; E86.0 Dehydration; I95.1 Orthostatic hypotension
CPT/HCPCS: 36000; 36415; 74018; 74176; 80048; 80053; 83605; 85025; 87045; 87046; 87177; 87209; 87335; 87493; 93268; 94760; 96360; 96374; 99285; J1956; J2405; A9270-GY; G0378

== ENCOUNTER 2017-12-05 18:16 | Observation (INO) | payer MEDICARE, OTHER ==
[2017-12-05 19:56] LABS: BASOPHIL % 0.6 % (0.0-0.4); Basophil (Absolute #) 0.04 (0-0.4); Eosinophil % 2.4 % (0.00-5.0); Eosinophil (Absolute #) 0.17 (0-0.5); Granulocytes % 56.9 % (36.0-66.0); Hematocrit 36.3 % (35-47); Lymphocyte (Absolute #) 1.97 (1.0-4.6); Mean Cell Volume 90.8 fl (78-100); Mean Corpuscular Hgb Concent. 33.1 g/dl (32-36); Monocyte (Absolute #) 0.85 (0.0-1.3); Monocytes % 12.1 % (0.0-12.0); Platelet Count 234 K/mm3 (150-450); Red Cell Distribution Width 13.4 % (11.5-14.0)
--- NOTE | 2017-12-05 19:59 | ERPHSYRPT ---
- History of Present Illness Time Seen by Provider: 12/05/17 19:04 Source: patient, family Exam Limitations: no limitations Patient Subjective Stated Complaint: pt here for slurred speach, numbness to left hand, and unsteadyness that started about 1710 today after palying cards. pt states syptoms have resolved execpt numbness to hand Triage Nursing Assessment: pt alert, arrived via wc, resp easy, skin w/d/p. no edema, denies any injury, follows commands well Physician History: 87 y/o female with history of pacemaker brought in by mother for acute onset of left hand numbness, slurred speech and left hand weakness that started at 5 pm this afternoon. Pt states that she still has the sensation of tongue heaviness but the left hand weakness and numbness have resolved. Pt had just finished a meal prior to having symptoms. No dizziness, headache, blurry vision or gait disturbance. Timing/Duration: today Severity: mild Character of Deficits: new weakness, altered sensation, impaired speech Deficits: no difficulties Baseline/Normal Cognition: alert oriented x 3 Current Cognition: alert oriented x 3 Associated Symptoms: numbness/tingling in legs/feet, paresthesia Allergies/Adverse Reactions: No Known Drug Allergies Allergy (Verified 12/05/17 18:47) Home Medications: Aspirin [Aspirin EC] 81 mg PO DAILY 11/24/14 [History] Levothyroxine Sodium 25 Mcg [Synthroid 25 Mcg] 25 mcg PO DAILY 11/24/14 [ History] Lactobacillus Rhamnosus GG [Culturelle] 1 each PO DAILY 04/15/17 [History] Lisinopril 10 mg PO DAILY 04/15/17 [History] Hx Tetanus, Diphtheria Vaccination/Date Given: Yes Hx Influenza Vaccination/Date Given: Yes Hx Pneumococcal Vaccination/Date Given: Yes Immunizations Up to Date: Yes - Review of Systems Constitutional: No Fever, No Chills Eyes: No Symptoms Ears, Nose, & Throat: No Symptoms Respiratory: No Cough, No Dyspnea Cardiac: No Chest Pain, No Edema, No Syncope Abdominal/Gastrointestinal: No Abdominal Pain, No Nausea, No Vomiting, No Diarrhea Genitourinary Symptoms: No Dysuria Musculoskeletal: No Back Pain, No Neck Pain Skin: No Rash Neurological: Focal Weakness, Parasthesia, Sensory Changes, Speech Changes, No Dizziness, No Gait Changes, No Headache, No Paralysis Psychological: No Symptoms Endocrine: No Symptoms All Other Systems: Reviewed and Negative - Past Medical History Pertinent Past Medical History: Yes Neurological History: No Pertinent History ENT History: Cataracts Cardiac History: Other Respiratory History: No Pertinent History Endocrine Medical History: Adrenal Insufficiency, Hypothyroidism Musculoskeletal History: Osteoarthritis GI Medical History: No Pertinent History, GERD History: No Pertinent History Psycho-Social History: No Pertinent History Female Reproductive Disorders: No Pertinent History Other Medical History: Pacemaker - Past Surgical History Past Surgical History: Yes Neuro Surgical History: No Pertinent History Cardiac: Cardiac Catheterization, Pacemaker Respiratory: No Pertinent History Gastrointestinal: Appendectomy, Cholecystectomy Genitourinary: No Pertinent History Musculoskeletal: Orthopedic Surgery Female Surgical History: Hysterectomy Other Surgical History: shoulder - Social History Smoking Status: Never smoker Exposure to second hand smoke: Yes Drug Use: none Patient Lives Alone: No - Female History Hx Last Menstrual Period: post Hx Now: No - Nursing Vital Signs Nursing Vital Signs: Initial Vital Signs Temperature 97.7 F 12/05/17 18:41 Pulse Rate 68 12/05/17 18:41 Respiratory Rate 16 12/05/17 18:41 Blood Pressure 142/89 12/05/17 18:41 O2 Sat by Pulse Oximetry 94 L 12/05/17 18:41 Pain Scale Pain Intensity 0 - Tuan Coma Scale Best Eye Response ([place]): (4) open spontaneously Best Verbal Response (Tuan): (5) oriented Best Motor Response (Tuan): (6) obeys commands [place] Total: 15 - Physical Exam General Appearance: no apparent distress, alert Eye Exam: bilateral eye: PERRL, EOMI Ears, Nose, Throat Exam: normal ENT inspection, moist mucous membranes Neck Exam: normal inspection, non-tender, supple Respiratory: normal breath sounds, lungs clear, airway intact, No respiratory distress Cardiovascular: regular rate/rhythm, No edema Gastrointestinal: soft, normal bowel sounds, No tenderness, No distention Back Exam: normal inspection, normal range of motion Extremity Exam: normal inspection, normal range of motion, No pedal edema Mental Status: alert, oriented x 3, 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 Exam: normal hearing, normal speech, PERRL, tongue midline Coordination/Gait: normal finger to nose, normal gait Motor/Sensory: no motor deficit, no sensory deficit, no pronator drift, negative Babinski's sign Skin Exam: normal color, warm, dry, No rash SpO2: 97 Oxygen Delivery: Room Air - Course Nursing assessment & vital signs reviewed: Yes EKG Interpreted by Me: NORMAL AXIS, NORMAL INTERVALS, NORMAL QRS, Other (paced) Ordered Tests: Active Orders 24 hr Category Date Time Status Can Filler STAT Care 12/05/17 19:22 Active EKG-ER Only STAT Care 12/05/17 19:22 Active IV Insertion STAT Care 12/05/17 19:22 Active NPO (ED) STAT Care 12/05/17 19:22 Active CHEST 1 VIEW (PORTABLE) Stat Exams 12/05/17 19:22 Taken HEAD WITHOUT CONTRAST [CT] Stat Exams 12/05/17 18:40 Taken CBC W DIFF Stat Lab 12/05/17 19:50 Completed CMP Stat Lab 12/05/17 19:50 Completed PROTIME WITH INR Stat Lab 12/05/17 19:50 Completed PTT Stat Lab 12/05/17 19:50 Completed Medication Summary Discontinued Medications Generic Name Dose Route Start Last Admin Trade Name Freq PRN Reason Stop Dose Admin Aspirin 81 mg 12/05/17 20:28 Baby Aspirin 81 Mg Chew PO 12/05/17 20:29 STAT ONE Lab/Rad Data: Laboratory Result Diagrams 12/05/17 19:50 12/05/17 19:50 Laboratory Results 12/05/17 12/05/17 12/05/17 Range/Units 19:50 19:50 19:50 WBC 7.0 (4.0-10.5) K/mm3 RBC 4.00 L (4.1-5.4) M/mm3 Hgb 12.0 (12.0-16.0) gm/dl Hct 36.3 (35-47) % MCV 90.8 (78-100) fl MCH 30.0 (26-32) pg MCHC 33.1 (32-36) g/dl RDW 13.4 (11.5-14.0) % Plt Count 234 (150-450) K/mm3 MPV 11.0 H (6-9.5) fl Gran % 56.9 (36.0-66.0) % Eos # (Auto) 0.17 (0-0.5) Absolute Lymphs (auto) 1.97 (1.0-4.6) Absolute Monos (auto) 0.85 (0.0-1.3) Lymphocytes % 28.0 (24.0-44.0) % Monocytes % 12.1 H (0.0-12.0) % Eosinophils % 2.4 (0.00-5.0) % Basophils % 0.6 (0.0-0.4) % Absolute Granulocytes 4.00 (1.4-6.9) Basophils # 0.04 (0-0.4) PT 11.0 (9.95-12.35) SECONDS INR 0.95 (0.8-3.0) APTT 27.4 (25.3-37.0) SECONDS Sodium 138 (137-145) mmol/L Potassium 4.5 (3.5-5.1) mmol/L Chloride 103 (98-107) mmol/L Carbon Dioxide 26 (22-30) mmol/L Anion Gap 13.4 (5-15) MEQ/L BUN 26 H (7-17) mg/dL Creatinine 1.38 H (0.52-1.04) mg/dL Estimated GFR 38.5 ML/MIN Glucose 108 H (74-106) mg/dL Calcium 9.2 (8.4-10.2) mg/dL Total Bilirubin 0.30 (0.2-1.3) mg/dL AST 18 (14-36) U/L ALT 13 (0-35) U/L Alkaline Phosphatase 72 (38-126) U/L Serum Total Protein 6.9 (6.3-8.2) g/dL Albumin 4.1 (3.5-5.0) g/dL - Progress Progress: improved Progress Note: 12/05/17 20:[address] scan head does not show any acute stroke, but 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 Pt has no neurological complaints but her her prior symptoms are related to TIA. Pt was given her usual baby ASA. Pt is also dehydrated and will be given NS fluids. Pt has been admitted to Dr [place] for TIA. - Departure Time of Disposition: 20:32 Departure Disposition: In-patient Admission Clinical Impression: TIA (transient ischemic attack) Condition: Fair Critical Care Time: Yes Critical Care Time(excluding separately billable procedures): 30-74 minutes Referrals: KIERRA PETERSEN [Primary Care Provider] -
[2017-12-05 20:08] LABS: INR 0.95 (0.8-3.0)
[2017-12-05 20:09] LABS: PTT 27.4 SECONDS (25.3-37.0)
[2017-12-05 20:11] LABS: ALBUMIN 4.1 g/dL (3.5-5.0); ANION GAP 13.4 MEQ/L (5-15); BILIRUBIN,TOTAL 0.3 mg/dL (0.2-1.3); Calcium 9.2 mg/dL (8.4-10.2); Creatinine 1 1.38 mg/dL (0.52-1.04); Potassium 4.5 mmol/L (3.5-5.1); Total Protein 6.9 g/dL (6.3-8.2)
[2017-12-05] MEDS ORDERED: BABY ASPIRIN 81 MG CHEW PO ONE (20:28)
[2017-12-05] MEDS ORDERED: Sodium Chloride 0.9% 1000 ML 1,000 ML IV SCH (20:30)
[2017-12-05] MEDS ORDERED: BABY ASPIRIN 81 MG CHEW ONE (20:37)
[2017-12-05] MEDS ORDERED: ENOXAPARIN SODIUM SQ SCH (23:00)
[2017-12-05] MEDS ORDERED: Ambien 5 MG Tablet PO ONE (23:00)
[2017-12-06 07:52] VITALS: O2SAT 94
--- NOTE | 2017-12-06 08:52 | XRAY ---
Indication: Slurred speech, numbness, and unsteadiness. Multiple contiguous axial images obtained through the head without contrast. Comparison: April 15, 2017. Stable age-appropriate global atrophy, moderate periventricular degenerative micro-ischemia bilaterally, and remote right external capsule lacunar infarct. No acute intracranial hemorrhage, abnormal extra-axial fluid collection, or mass effect. Fourth ventricle is midline without hydrocephalus. Bony calvarium intact. Again mild right ethmoid sinus mucosal thickening. Remaining visualized paranasal sinuses and mastoid air cells are clear. Impression: Stable nonacute senile brain with remote right external capsule lacunar infarct. Again incidental mild paranasal sinus disease. CT DI 70.87
--- NOTE | 2017-12-06 09:01 | XRAY ---
Indication: TIA. Comparison: March 16, 2017. Portable chest again demonstrates mild left base atelectasis/scarring. Remaining heart and lungs normal again with left-sided dual-lead pacemaker. Bony thorax intact again with mild osteopenia and old proximal right humeral fracture. Impression: Stable nonacute chest with chronic features.
--- NOTE | 2017-12-06 09:01 | XRAY ---
Indication: TIA. Two-dimensional sonogram and color Doppler imaging of the carotid arteries of the neck performed. Comparison: May 01, 2008. Examination of the right carotid circulation now demonstrates minimal heterogeneous plaquing at the level of the bulb. PSV of the CCA is 89 cm/s. PSV of the ICA is 130 cm/s. ICA/CCA ratio is 1.5. Normal antegrade vertebral artery flow. Examination of the left carotid circulation also demonstrates new minimal heterogeneous plaquing at the level of the bulb. PSV of the CCA is 87 cm/s. PSV of the ICA is 100 cm/s. ICA/CCA ratio is 1.1. Normal antegrade vertebral artery flow. Impression: New minimal heterogeneous plaquing bilaterally as detailed. Velocity measurements and ratios are however negative for hemodynamically significant flow-limiting stenosis.
[2017-12-06] MEDS ORDERED: PLAVIX 75 MG Tablet PO SCH (10:00)
[2017-12-06] MEDS ORDERED: ECOTRIN 81 MG PO SCH (10:00)
[2017-12-06 12:06] VITALS: BP 138/65; PULSE 66
[2017-12-06] MEDS ORDERED: ENOXAPARIN SODIUM SQ SCH ×2 (22:00)
== END 2017-12-06 11:45 | disposition home or self-care (01) ==
LOC: ED 18:16 → INTOOBSV 21:18 → MED SURG 21:18
PROVIDERS: ADMIT Family Medicine; ATTEND Family Medicine
DX: G45.9 Transient cerebral ischemic attack, unspecified (principal); R20.0 Anesthesia of skin; E86.0 Dehydration; Z95.0 Presence of cardiac pacemaker
CPT/HCPCS: 36000; 36415; 70450; 71045; 80053; 85025; 85610; 85730; 93005; 93041; 93268; 93306; 93880; 99285; J1650; A9270-GY; G0378

== ENCOUNTER 2018-03-25 09:28 | Emergency (ER) | payer MEDICARE, OTHER ==
--- NOTE | 2018-03-25 10:15 | ERPHSYRPT ---
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 Patient arrives with complaint of bleeding from the right naris this morning on awakening at approximately 7:30 AM she states she had some drooping this morning. Patient states she is concerned because she hasn't had a TIA in the past with a nosebleed. She has not been otherwise ill. Currently the patient has a slight amount of blood in her right naris which can be expressed by placing a Kleenex in the area but is not actively bleeding. Past medical history includes cataracts, adrenal insufficiency, hypothyroidism, osteoarthritis, GERD, cardiac pacemaker. Past surgical history includes cardiac catheterization, cardiac pacemaker, appendectomy, cholecystectomy, orthopedic surgery, hysterectomy, shoulder surgery. Timing/Duration: today (7:30 AM) Severity: mild Modifying Factors: Improves With: nothing Associated Symptoms: No nausea, No vomiting, No abdominal pain, No shortness of breath, No heartburn, No diaphoresis, No cough, No chills, No chest pain, No fever, No headaches, No loss of appetite, No malaise, No syncope, No seizure, No weakness Allergies/Adverse Reactions: No Known Drug Allergies Allergy (Verified 03/25/18 09:47) Home Medications: Aspirin [Aspirin EC] 81 mg PO DAILY 11/24/14 [History] Levothyroxine Sodium 25 Mcg [Synthroid 25 Mcg] 25 mcg PO DAILY 11/24/14 [ History] Famotidine 20 mg [Pepcid 20 MG] 20 mg PO DAILY 12/06/17 [History] Oxybutynin Chloride Xl 5 mg [Ditropan XL 5 MG] 10 mg PO DAILY 12/06/17 [ History] Hx Tetanus, Diphtheria Vaccination/Date Given: Yes Hx Influenza Vaccination/Date Given: Yes Hx Pneumococcal Vaccination/Date Given: Yes - Review of Systems Constitutional: No Fever, No Chills Eyes: No Symptoms Ears, Nose, & Throat: Epistaxis, No Ear Pain, No Ear Discharge, No Hearing Changes, No Tinnitus, No Nose Pain, No Nose Congestion, No Nose Discharge, No Sinus Drainage, No Mouth Pain, No Mouth Swelling, No Loose Teeth, No Throat Pain , No Throat Swelling, No Hoarse, No Painful Swallowing, No Snoring, No Stridor Respiratory: No Cough, No Dyspnea Cardiac: No Chest Pain, No Edema, No Syncope Abdominal/Gastrointestinal: No Abdominal Pain, No Nausea, No Vomiting, No Diarrhea Genitourinary Symptoms: No Dysuria Musculoskeletal: No Back Pain, No Neck Pain Skin: No Rash Neurological: No Dizziness, No Focal Weakness, No Sensory Changes Psychological: No Symptoms Endocrine: No Symptoms All Other Systems: Reviewed and Negative - Past Medical History Pertinent Past Medical History: Yes Neurological History: No Pertinent History ENT History: Cataracts Cardiac History: Arrhythmia, Other Respiratory History: No Pertinent History Endocrine Medical History: Adrenal Insufficiency, Hypothyroidism Musculoskeletal History: Osteoarthritis GI Medical History: No Pertinent History, GERD History: No Pertinent History Psycho-Social History: No Pertinent History Female Reproductive Disorders: No Pertinent History Other Medical History: Pacemaker - Past Surgical History Past Surgical History: Yes Neuro Surgical History: No Pertinent History Cardiac: Cardiac Catheterization, Pacemaker Respiratory: No Pertinent History Gastrointestinal: Appendectomy, Cholecystectomy Genitourinary: No Pertinent History Musculoskeletal: Orthopedic Surgery Female Surgical History: Hysterectomy Other Surgical History: shoulder right - Social History Smoking Status: Never smoker Exposure to second hand smoke: No Drug Use: none Patient Lives Alone: Yes - Female History Hx Now: No - Nursing Vital Signs Nursing Vital Signs: Initial Vital Signs Temperature 97.7 F 03/25/18 09:33 Pulse Rate 76 03/25/18 09:33 Blood Pressure 177/77 03/25/18 09:33 O2 Sat by Pulse Oximetry 98 03/25/18 09:33 Pain Scale Pain Intensity 0 - Physical Exam General Appearance: no apparent distress, alert, other (elderly white female alert oriented 3 in no apparent distress pleasant and cooperative to examination) Eye Exam: PERRL/EOMI, eyes nml inspection, other (Fundi are unremarkable) Ears, Nose, Throat Exam: TMs normal, pharynx normal, moist mucous membranes, other (small amount of blood in right naris) Neck Exam: normal inspection, non-tender, supple, full range of motion Respiratory Exam: normal breath sounds, lungs clear, No respiratory distress Cardiovascular Exam: regular rate/rhythm, normal heart sounds, normal peripheral pulses, capillary refill <2 sec Gastrointestinal/Abdomen Exam: soft, normal bowel sounds, No tenderness, No mass Back Exam: normal inspection, normal range of motion, No CVA tenderness, No vertebral tenderness Extremity Exam: normal inspection, normal range of motion, pelvis stable Neurologic Exam: alert, oriented x 3, cooperative, 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 nml as tested, normal mood/affect, nml cerebellar function, nml station & gait, sensation nml, other (Patient alert, oriented x3, cranial nerves II through XII intact, normal finger to nose, no pronator drift, regional economic liaison equal and symmetrical 5 over5, no facial droop, speech normal, full range of motion all extremities, sensation intact to all extremities, GCS equals 15), No motor deficits Skin Exam: normal color, warm, dry, No rash SpO2 Interpretation: normal (98%) SpO2: 98 Oxygen Delivery: Room Air Ordered Tests: Active Orders 24 hr Category Date Time Status Miscellaneous Nursing Order ROUTINE Care 03/25/18 10:28 Active Medication Summary Discontinued Medications Generic Name Dose Route Start Last Admin Trade Name Lupe PRN Reason Stop Dose Admin Phenylephrine HCl Confirm 03/25/18 10:33 Neosynephrine 0.5% Nasal [place]/Drops Administered 03/25/18 10:34 Dose 15 ml .ROUTE .STK-MED ONE Phenylephrine HCl 15 ml 03/25/18 10:45 03/25/18 11:21 Neosynephrine 0.5% Nasal [place]/Drops NS 03/25/18 10:46 15 ml STAT ONE Administration - Progress Progress: improved Progress Note: 03/25/18 10:46 87-year-old white female arrives with complaint of bleeding from her right naris since this morning at 7:30. She states that she had dribbling of blood this morning. She arrives with a small amount of blood in her right naris. I had the patient blow her nose and placed on noseclip on the area. She appears to be stable clip is removed. Will give patient Griffin-Synephrine 2 sprays in the right naris. Patient with normal physical examination she does state that she had a TIA in the past with nosebleeds she has a normal neurologic examination. Plan to discharge patient with Griffin-Synephrine 2 sprays in the right naris every 4 hours as needed for one to 2 days. 03/25/18 11:37 Patient feeling better. No further bleeding. Will discharge. - Departure Time of Disposition: 11:37 Departure Disposition: Home Clinical Impression: Epistaxis Condition: Fair Critical Care Time: No Referrals: KIERRA PETERSEN [Primary Care Provider] - Instructions: Nosebleeds (DC) Additional Instructions: Return home. Use a humidifier in your house. Griffin-Synephrine 0.5% 2 sprays right naris not more than every 4 hours as needed for bleeding for only 1-2 days. Return if any problems. Follow-up with your family doctor. Return for acute distress or for severe symptoms.
[2018-03-25] MEDS ORDERED: NEOSYNEPHRINE 0.5% NASAL SPRAY/DROPS ONE (10:33)
[2018-03-25] MEDS ORDERED: NEOSYNEPHRINE 0.5% NASAL SPRAY/DROPS NS ONE (10:45)
[2018-03-25 11:42] VITALS: BP 187/78; PULSE 67; O2SAT 94
== END 2018-03-25 11:45 | disposition home or self-care (01) ==
LOC: ED 09:28
DX: R04.0 Epistaxis (principal); Z79.899 Other long term (current) drug therapy; Z79.82 Long term (current) use of aspirin; Z86.73 Personal history of transient ischemic attack (TIA), and cerebral infarction without residual deficits
CPT/HCPCS: 99283; A9270-GY

== ENCOUNTER 2018-04-06 12:19 | Emergency (ER) | payer MEDICARE, OTHER ==
--- NOTE | 2018-04-06 12:22 | ERPHSYRPT ---
- History of Present Illness Time Seen by Provider: 04/06/18 12:22 Source: patient, EMS Physician History: 87 y/o white female presents with stroke like symptoms including perioral numbness, mild confusion and mild speech changes. 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 they have improved. pt drove to [employer], shopped but forgot where she parked. however, she recalled her car license and found car, drove home. pt states she has been walking fine and vision is fine. she spoke with her daughter and daughter noticed a change in speech. pt then called ems and pt brought to ED. pt has h/o mini strokes in the past. they typically affected her speech. pt is on plavix and asa. Timing/Duration: today Severity: mild Character of Deficits: impaired speech Deficits: no difficulties Baseline/Normal Cognition: alert oriented x 3 Current Cognition: alert oriented x 3 Baseline Gait: walks w/o assistance Associated Symptoms: confusion (mild early but resolved), slurred speech (mild but improving), other (perioral numbness), No loss of consciousness, No nausea, No vomiting, No weakness, No insomnia, No vision changes, No chest pain Allergies/Adverse Reactions: No Known Drug Allergies Allergy (Verified 04/06/18 12:39) Home Medications: Aspirin [Aspirin EC] 81 mg PO DAILY 11/24/14 [History] Levothyroxine Sodium 25 Mcg [Synthroid 25 Mcg] 25 mcg PO DAILY 11/24/14 [ History] Famotidine 20 mg [Pepcid 20 MG] 20 mg PO DAILY 12/06/17 [History] Oxybutynin Chloride Xl 5 mg [Ditropan XL 5 MG] 10 mg PO DAILY 12/06/17 [ History] Hx Tetanus, Diphtheria Vaccination/Date Given: Yes Hx Influenza Vaccination/Date Given: Yes Hx Pneumococcal Vaccination/Date Given: Yes - Review of Systems Constitutional: No Symptoms Eyes: No Symptoms Ears, Nose, & Throat: No Symptoms Respiratory: No Symptoms Cardiac: No Symptoms Abdominal/Gastrointestinal: No Symptoms Genitourinary Symptoms: No Symptoms Musculoskeletal: No Symptoms Skin: No Symptoms Neurological: Parasthesia (perioral), Speech Changes Psychological: No Symptoms Endocrine: No Symptoms Hematologic/Lymphatic: No Symptoms Immunological/Allergic: No Symptoms All Other Systems: Reviewed and Negative - Past Medical History Pertinent Past Medical History: Yes Neurological History: No Pertinent History ENT History: Cataracts Cardiac History: Arrhythmia, Other Respiratory History: No Pertinent History Endocrine Medical History: Adrenal Insufficiency, Hypothyroidism Musculoskeletal History: Osteoarthritis GI Medical History: No Pertinent History, GERD History: No Pertinent History Psycho-Social History: No Pertinent History Female Reproductive Disorders: No Pertinent History Other Medical History: Pacemaker - Past Surgical History Past Surgical History: Yes Neuro Surgical History: No Pertinent History Cardiac: Cardiac Catheterization, Pacemaker Respiratory: No Pertinent History Gastrointestinal: Appendectomy, Cholecystectomy Genitourinary: No Pertinent History Musculoskeletal: Orthopedic Surgery Female Surgical History: Hysterectomy Other Surgical History: shoulder right - Social History Smoking Status: Never smoker Exposure to second hand smoke: No Drug Use: none Patient Lives Alone: Yes - Nursing Vital Signs Nursing Vital Signs: Initial Vital Signs Temperature 98 F 04/06/18 12:24 Pulse Rate 60 04/06/18 12:24 Respiratory Rate 16 04/06/18 12:24 Blood Pressure 105/77 04/06/18 12:24 O2 Sat by Pulse Oximetry 99 04/06/18 12:24 Pain Scale Pain Intensity 0 - Tuan Coma Scale Best Eye Response (Tuan): (4) open spontaneously Best Verbal Response (Boyd): (5) oriented Best Motor Response (Boyd): (6) obeys commands Tuan Total: 15 - Physical Exam General Appearance: no apparent distress, alert, anxiety Eye Exam: bilateral eye: normal inspection, PERRL, EOMI Ears, Nose, Throat Exam: normal ENT inspection, moist mucous membranes Neck Exam: normal inspection, non-tender, supple, full range of motion Respiratory: normal breath sounds, lungs clear, airway intact, No chest tenderness, No respiratory distress, No accessory muscle use, No rhonchi, No wheezing, No stridor Cardiovascular: regular rate/rhythm, normal heart sounds, normal peripheral pulses Gastrointestinal: soft, normal bowel sounds, No tenderness, No guarding, No rebound Pelvic Exam: not done Rectal Exam: not done Back Exam: normal inspection, normal range of motion, No CVA tenderness, No vertebral tenderness Extremity Exam: normal inspection, normal range of motion, pelvis stable Mental Status: alert, oriented x 3, cooperative welfare investigator Exam: normal hearing, abnormal speech (mild; pt aware something is different ), facial paresthesias (perioral), No facial asymmetry, No facial droop Coordination/Gait: normal finger to nose, normal gait, normal cerebellar function Motor/Sensory: no motor deficit, no sensory deficit, no pronator drift Skin Exam: normal color, warm, dry SpO2 Interpretation: normal Oxygen Delivery: Room Air - Course Nursing assessment & vital signs reviewed: Yes EKG Interpreted by Me: RATE (60), Left Perkins Deviation, Other (paced rhythm; no change from EKG 12/05/17) Ordered Tests: Active Orders 24 hr Category Date Time Status Short Goods Drier STAT Care 04/06/18 12:23 Active Clean Catch Urine Specimen STAT Care 04/06/18 13:12 Active EKG-ER Only STAT Care 04/06/18 12:22 Active IV Insertion STAT Care 04/06/18 12:22 Active HEAD WITHOUT CONTRAST [CT] Stat Exams 04/06/18 12:22 Taken CBC W DIFF Stat Lab 04/06/18 12:25 Completed CMP Stat Lab 04/06/18 12:25 Completed PROTIME WITH INR Stat Lab 04/06/18 12:25 Completed UA W/RFX UR CULTURE Stat Lab 04/06/18 13:35 Completed Medication Summary Generic Name Dose Route Start Last Admin Trade Name Freq PRN Reason Stop Dose Admin Sodium Chloride 1,000 mls @ 250 mls/hr 04/06/18 13:15 04/06/18 13:23 Sodium Chloride 0.9% 1000 Ml IV 05/06/18 13:14 250 mls/hr .Q4H EMILY Administration Lab/Rad Data: Laboratory Result Diagrams 04/06/18 12:25 04/06/18 12:25 Laboratory Results 04/06/18 04/06/18 04/06/18 Range/Units 13:35 12:25 12:25 WBC (4.0-10.5) K/mm3 RBC (4.1-5.4) M/mm3 Hgb (12.0-16.0) gm/dl Hct (35-47) % MCV (78-100) fl MCH (26-32) pg MCHC (32-36) g/dl RDW (11.5-14.0) % Plt Count (150-450) K/mm3 MPV (6-9.5) fl Gran % (36.0-66.0) % Eos # (Auto) (0-0.5) Absolute Lymphs (auto) (1.0-4.6) Absolute Monos (auto) (0.0-1.3) Lymphocytes % (24.0-44.0) % Monocytes % (0.0-12.0) % Eosinophils % (0.00-5.0) % Basophils % (0.0-0.4) % Absolute Granulocytes (1.4-6.9) Basophils # (0-0.4) PT 11.6 (9.95-12.35) SECONDS INR 1.00 (0.8-3.0) Sodium 140 (137-145) mmol/L Potassium 5.4 H (3.5-5.1) mmol/L Chloride 106 (98-107) mmol/L Carbon Dioxide 23 (22-30) mmol/L Anion Gap 15.8 H (5-15) MEQ/L BUN 35 H (7-17) mg/dL Creatinine 1.40 H (0.52-1.04) mg/dL Estimated GFR 37.9 ML/MIN Glucose 99 (74-106) mg/dL Calcium 9.4 (8.4-10.2) mg/dL Total Bilirubin 0.40 (0.2-1.3) mg/dL AST 18 (14-36) U/L ALT 12 (0-35) U/L Alkaline Phosphatase 98 (38-126) U/L Serum Total Protein 7.6 (6.3-8.2) g/dL Albumin 4.3 (3.5-5.0) g/dL Urine Color YELLOW (YELLOW) Urine Appearance CLEAR (CLEAR) Urine pH 5.0 (5-6) Ur Specific [place] 1.009 (1.005-1.025) Urine Protein NEGATIVE (Negative) Urine Ketones NEGATIVE (NEGATIVE) Urine Blood NEGATIVE (0-5) Oscar/ul Urine Nitrite NEGATIVE (NEGATIVE) Urine Bilirubin NEGATIVE (NEGATIVE) Urine Urobilinogen NEGATIVE (0-1) mg/dL Ur Leukocyte Esterase SMALL (NEGATIVE) Urine WBC (Auto) 0-2 (0-5) /HPF Urine RBC (Auto) NONE (0-2) /HPF U Hyaline Cast (Auto) 0-2 (0-2) /LPF U Epithel Cells (Auto) NONE (FEW) /HPF Urine Bacteria (Auto) NONE SEEN (NEGATIVE) /HPF Urine Mucus (Auto) SLIGHT (NEGATIVE) /HPF Urine Culture Reflexed NO (NO) Urine Glucose NEGATIVE (NEGATIVE) mg/dL 04/06/18 Range/Units 12:25 WBC 8.3 (4.0-10.5) K/mm3 RBC 4.11 (4.1-5.4) M/mm3 Hgb 12.1 (12.0-16.0) gm/dl Hct 37.9 (35-47) % MCV 92.2 (78-100) fl MCH 29.4 (26-32) pg MCHC 31.9 L (32-36) g/dl RDW 13.0 (11.5-14.0) % Plt Count 272 (150-450) K/mm3 MPV 11.3 H (6-9.5) fl Gran % 59.1 (36.0-66.0) % Eos # (Auto) 0.55 H (0-0.5) Absolute Lymphs (auto) 1.85 (1.0-4.6) Absolute Monos (auto) 0.95 (0.0-1.3) Lymphocytes % 22.3 L (24.0-44.0) % Monocytes % 11.4 (0.0-12.0) % Eosinophils % 6.6 H (0.00-5.0) % Basophils % 0.6 (0.0-0.4) % Absolute Granulocytes 4.90 (1.4-6.9) Basophils # 0.05 (0-0.4) PT (9.95-12.35) SECONDS INR (0.8-3.0) Sodium (137-145) mmol/L Potassium (3.5-5.1) mmol/L Chloride (98-107) mmol/L Carbon Dioxide (22-30) mmol/L Anion Gap (5-15) MEQ/L BUN (7-17) mg/dL Creatinine (0.52-1.04) mg/dL Estimated GFR ML/MIN Glucose (74-106) mg/dL Calcium (8.4-10.2) mg/dL Total Bilirubin (0.2-1.3) mg/dL AST (14-36) U/L ALT (0-35) U/L Alkaline Phosphatase (38-126) U/L Serum Total Protein (6.3-8.2) g/dL Albumin (3.5-5.0) g/dL Urine Color (YELLOW) Urine Appearance (CLEAR) Urine pH (5-6) Ur Specific [place] (1.005-1.025) Urine Protein (Negative) Urine Ketones (NEGATIVE) Urine Blood (0-5) Oscar/ul Urine Nitrite (NEGATIVE) Urine Bilirubin (NEGATIVE) Urine Urobilinogen (0-1) mg/dL Ur Leukocyte Esterase (NEGATIVE) Urine WBC (Auto) (0-5) /HPF Urine RBC (Auto) (0-2) /HPF U Hyaline Cast (Auto) (0-2) /LPF U Epithel Cells (Auto) (FEW) /HPF Urine Bacteria (Auto) (NEGATIVE) /HPF Urine Mucus (Auto) (NEGATIVE) /HPF Urine Culture Reflexed (NO) Urine Glucose (NEGATIVE) mg/dL - Progress Progress: improved, re-examined Progress Note: 04/06/18 15:07 Ct scan head- no acute process. pt clinically returned to normal by my exam, pt. and family members. everyone is comfortable for patient to be discharged to home Counseled pt/family regarding: lab results, diagnosis, need for follow-up, rad results - Departure Time of Disposition: 15:10 Departure Disposition: Home Clinical Impression: TIA (transient ischemic attack) Condition: Stable Critical Care Time: No Referrals: KIERRA PETERSEN [Primary Care Provider] - Additional Instructions: take medications as prescribed. follow up with your primary doctor and neurologist. return to ED if symptoms recur.
[2018-04-06 12:35] LABS: BASOPHIL % 0.6 % (0.0-0.4); Basophil (Absolute #) 0.05 (0-0.4); Eosinophil % 6.6 % (0.00-5.0); Eosinophil (Absolute #) 0.55 (0-0.5); Granulocytes % 59.1 % (36.0-66.0); Hematocrit 37.9 % (35-47); Hemoglobin 12.1 gm/dl (12.0-16.0); Lymphocyte (Absolute #) 1.85 (1.0-4.6); Lymphocytes % 22.3 % (24.0-44.0); Mean Cell Volume 92.2 fl (78-100); Mean Corpuscular Hemoglobin 29.4 pg (26-32); Mean Corpuscular Hgb Concent. 31.9 g/dl (32-36); Mean Platelet Volume 11.3 fl (6-9.5); Monocyte (Absolute #) 0.95 (0.0-1.3); Monocytes % 11.4 % (0.0-12.0); Platelet Count 272 K/mm3 (150-450); Red Blood Count 4.11 M/mm3 (4.1-5.4); White Blood Count 8.3 K/mm3 (4.0-10.5)
[2018-04-06 12:45] LABS: ALBUMIN 4.3 g/dL (3.5-5.0); ANION GAP 15.8 MEQ/L (5-15); BILIRUBIN,TOTAL 0.4 mg/dL (0.2-1.3); Calcium 9.4 mg/dL (8.4-10.2); Creatinine 1 1.4 mg/dL (0.52-1.04); Potassium 5.4 mmol/L (3.5-5.1); Total Protein 7.6 g/dL (6.3-8.2)
[2018-04-06] MEDS ORDERED: Sodium Chloride 0.9% 1000 ML 1,000 ML IV SCH (13:15)
[2018-04-06] MEDS ORDERED: Sodium Chloride 0.9% 1000 ML 1,000 ML ONE (13:22)
[2018-04-06 13:49] LABS: Appearance CLEAR (CLEAR); Bilirubin NEGATIVE (NEGATIVE); Blood NEGATIVE Ery/ul (0-5); Glucose NEGATIVE (NEGATIVE); Ketones NEGATIVE (NEGATIVE); Leukocyte Esterase SMALL (NEGATIVE); Nitrite NEGATIVE (NEGATIVE); Protein,Urine Dip NEGATIVE (Negative); Specific Gravity 1.009 (1.005-1.025); Urobilinogen NEGATIVE mg/dL (0-1)
[2018-04-06 14:27] VITALS: PULSE 64
[2018-04-06 15:28] VITALS: BP 178/89; O2SAT 97
--- NOTE | 2018-04-06 17:22 | XRAY ---
Indication: Slurred speech, confusion, and memory loss. Multiple contiguous axial images obtained through the head without contrast. Comparison: December 05, 2017. Stable age-appropriate global atrophy, moderate periventricular degenerative micro-ischemia, and remote right external capsule lacunar infarct. Again no acute intracranial hemorrhage, abnormal extra-axial fluid collection, or mass effect. Fourth ventricle is midline without hydrocephalus. Bony calvarium intact. Visualized paranasal sinuses and mastoid air cells are clear. Impression: Stable nonacute senile brain with remote right external capsule lacunar infarct. Comment: Preliminary interpretation was made by [facility]. No discrepancy. CTDI 70.87
== END 2018-04-06 16:08 | disposition home or self-care (01) ==
LOC: ED 12:19
DX: G45.9 Transient cerebral ischemic attack, unspecified (principal); R47.81 Slurred speech; R41.0 Disorientation, unspecified; Z86.73 Personal history of transient ischemic attack (TIA), and cerebral infarction without residual deficits; Z79.899 Other long term (current) drug therapy; Z79.01 Long term (current) use of anticoagulants
CPT/HCPCS: 36000; 36415; 70450; 80053; 81001; 85025; 85610; 93005; 93041; 96360; 96361; 99284

== ENCOUNTER 2018-06-16 01:50 | Emergency (ER) | payer MEDICARE, OTHER ==
[2018-06-16] MEDS ORDERED: Zofran 4 MG/2 ML VIAL IV ONE ×2 (02:07→08:07)
[2018-06-16] MEDS ORDERED: Pepcid 20 MG PO ONE (02:09)
[2018-06-16] MEDS ORDERED: Protonix 40MG Tablet PO ONE (02:10)
[2018-06-16] MEDS ORDERED: Zofran 4 MG/2 ML VIAL ONE ×2 (02:13→08:14)
[2018-06-16] MEDS ORDERED: Protonix 40MG Tablet ONE (02:13)
[2018-06-16] MEDS ORDERED: Pepcid 20 MG ONE (02:13)
[2018-06-16 02:22] LABS: BASOPHIL % 0.2 % (0.0-0.4); Basophil (Absolute #) 0.02 (0-0.4); Eosinophil % 2.6 % (0.00-5.0); Eosinophil (Absolute #) 0.23 (0-0.5); Granulocyte Absolute (ANC) 5.22 (1.4-6.9); Granulocytes % 59.7 % (36.0-66.0); Hematocrit 37.9 % (35-47); Lymphocyte (Absolute #) 2.05 (1.0-4.6); Lymphocytes % 23.4 % (24.0-44.0); Mean Cell Volume 89.8 fl (78-100); Mean Corpuscular Hemoglobin 28.4 pg (26-32); Mean Corpuscular Hgb Concent. 31.7 g/dl (32-36); Monocyte (Absolute #) 1.23 (0.0-1.3); Monocytes % 14.1 % (0.0-12.0); Platelet Count 335 K/mm3 (150-450); Red Blood Count 4.22 M/mm3 (4.1-5.4); Red Cell Distribution Width 13.7 % (11.5-14.0); White Blood Count 8.8 K/mm3 (4.0-10.5)
[2018-06-16 02:33] LABS: ALBUMIN 4.3 g/dL (3.5-5.0); ANION GAP 14.6 MEQ/L (5-15); BILIRUBIN,TOTAL 0.4 mg/dL (0.2-1.3); Calcium 9.9 mg/dL (8.4-10.2); Creatinine 1 1.45 mg/dL (0.52-1.04); Potassium 5.1 mmol/L (3.5-5.1); Total Protein 7.7 g/dL (6.3-8.2)
[2018-06-16] MEDS ORDERED: MORPHINE SULFATE 2 MG INJ ONE (02:47)
[2018-06-16] MEDS ORDERED: MORPHINE SULFATE 2 MG INJ IV ONE (04:17)
[2018-06-16] MEDS ORDERED: Sodium Chloride 0.9% 1000 ML 1,000 ML ONE (06:22)
[2018-06-16] MEDS ORDERED: Sodium Chloride 0.9% 1000 ML 1,000 ML IV STA (06:22)
[2018-06-16 06:49] VITALS: PULSE 70
--- NOTE | 2018-06-16 08:13 | ERPHSYRPT ---
- History of Present Illness Historian: patient Exam Limitations: no limitations Patient Subjective Stated Complaint: Chest pain Triage Nursing Assessment: Patient brought into ED per EMS. Patient states she was sitting up in her chair and started having chest pain. Patient states the pain started roughly around 2300. Patient states she has a sharp pain in the middle of chest that radiates to back 11/23. Patient A+O X 3. Patient's lungs clear a/p melvi. Heart tones audible. No edema noted. Patient does have pacemaker to left upper chest. Physician History: Pt presented to the ED by EMS. She complains of chest discomfort that is more in her epigstric area. Pt is nauseated, but not vomiting. No F/C/S. No SOB or cough. No dysuria, frequency or urgency. Timing/Duration: yesterday Activities at Onset: none Quality: aching, dullness Location: epigastric Chest Pain Radiation: no radiation Severity of Pain-Max: moderate Severity of Pain-Current: moderate Modifying Factors: Improves With: nothing Associated Symptoms: nausea Prior Chest Pain/Cardiac Workup: cardiac cath (pacer) Nitro Today/Relief: no nitro taken today Aspirin Treatment Today: 81 mg x 1 Allergies/Adverse Reactions: No Known Drug Allergies Allergy (Verified 06/16/18 01:56) Home Medications: Aspirin [Aspirin EC] 81 mg PO DAILY 11/24/14 [History] Levothyroxine Sodium 25 Mcg [Synthroid 25 Mcg] 25 mcg PO DAILY 11/24/14 [ History] Famotidine 20 mg [Pepcid 20 MG] 20 mg PO DAILY 12/06/17 [History] Oxybutynin Chloride Xl 5 mg [Ditropan XL 5 MG] 10 mg PO DAILY 12/06/17 [ History] Hx Tetanus, Diphtheria Vaccination/Date Given: Yes Hx Influenza Vaccination/Date Given: Yes Hx Pneumococcal Vaccination/Date Given: Yes Immunizations Up to Date: Yes - Review of Systems Constitutional: Malaise Eyes: No Symptoms Ears, Nose, & Throat: No Symptoms Respiratory: No Cough, No Dyspnea Cardiac: Chest Pain Abdominal/Gastrointestinal: Abdominal Pain (Epigastric), Nausea Genitourinary Symptoms: No Dysuria Musculoskeletal: No Back Pain, No Neck Pain Neurological: No Dizziness, No Focal Weakness, No Sensory Changes Psychological: No Symptoms - Past Medical History Pertinent Past Medical History: Yes Neurological History: No Pertinent History ENT History: Cataracts Cardiac History: Arrhythmia, Other Respiratory History: No Pertinent History Endocrine Medical History: Adrenal Insufficiency, Hypothyroidism Musculoskeletal History: Osteoarthritis GI Medical History: No Pertinent History, GERD History: No Pertinent History Psycho-Social History: No Pertinent History Female Reproductive Disorders: No Pertinent History Other Medical History: Pacemaker - Past Surgical History Past Surgical History: Yes Neuro Surgical History: No Pertinent History Cardiac: Cardiac Catheterization, Pacemaker Respiratory: No Pertinent History Gastrointestinal: Appendectomy, Cholecystectomy Genitourinary: No Pertinent History Musculoskeletal: Orthopedic Surgery Female Surgical History: Hysterectomy Other Surgical History: shoulder right - Social History Smoking Status: Never smoker Exposure to second hand smoke: No Drug Use: none Patient Lives Alone: Yes - Female History Hx Now: No - Nursing Vital Signs Nursing Vital Signs: Initial Vital Signs Temperature 97.8 F 06/16/18 01:57 Pulse Rate 64 06/16/18 01:57 Respiratory Rate 18 06/16/18 01:57 Blood Pressure 129/67 06/16/18 01:57 O2 Sat by Pulse Oximetry 94 L 06/16/18 01:57 Pain Scale Pain Intensity 3 - Physical Exam General Appearance: mild distress Eye Exam: PERRL/EOMI, eyes nml inspection Ears, Nose, Throat Exam: normal ENT inspection, moist mucous membranes Neck Exam: normal inspection, non-tender, supple, full range of motion Respiratory Exam: normal breath sounds, lungs clear, No respiratory distress Cardiovascular Exam: regular rate/rhythm, normal heart sounds Gastrointestinal/Abdomen Exam: tenderness (Epigastric) Extremity Exam: normal inspection, normal range of motion Neurologic Exam: alert, oriented x 3, cooperative, normal mood/affect, sensation nml, No motor deficits SpO2: 98 - Course Nursing assessment & vital signs reviewed: Yes EKG Interpreted by Me: RATE (62bpm paced. old DE) Ordered Tests: Active Orders 24 hr Category Date Time Status IV Insertion STAT Care 06/16/18 02:07 Active CBC W DIFF Stat Lab 06/16/18 01:53 Completed CMP Stat Lab 06/16/18 01:53 Completed TROPONIN Q3H Lab 06/16/18 01:53 Completed TROPONIN Q3H Lab 06/16/18 05:35 Completed TROPONIN Q3H Lab 06/16/18 08:03 Received TROPONIN Q3H Lab 06/16/18 11:15 Ordered TROPONIN Q3H Lab 06/16/18 14:15 Ordered UA W/RFX UR CULTURE Stat Lab 06/16/18 06:46 Uncollected Medication Summary Discontinued Medications Generic Name Dose Route Start Last Admin Trade Name Lupe PRN Reason Stop Dose Admin Famotidine 40 mg 06/16/18 02:09 06/16/18 02:16 Pepcid 20 Mg PO 06/16/18 02:10 40 mg STAT ONE Administration Famotidine Confirm 06/16/18 02:13 Pepcid 20 Mg Administered 06/16/18 02:14 Dose 40 mg .ROUTE .STK-MED ONE Sodium Chloride 1,000 mls @ 999 mls/hr 06/16/18 06:22 06/16/18 07:29 Sodium Chloride 0.9% 1000 Ml IV 06/16/18 07:22 Infused .Q1H1M STA Infusion Sodium Chloride Confirm 06/16/18 06:22 Sodium Chloride 0.9% 1000 Ml Administered 06/16/18 06:23 Dose 1,000 mls @ ud .ROUTE .STK-MED ONE Morphine Sulfate Confirm 06/16/18 02:47 Morphine Sulfate 2 Mg Inj Administered 06/16/18 02:48 Dose 2 mg .ROUTE .STK-MED ONE Morphine Sulfate 2 mg 06/16/18 04:17 06/16/18 04:26 Morphine Sulfate 2 Mg Inj IV 06/16/18 04:18 2 mg STAT ONE Administration Ondansetron HCl 4 mg 06/16/18 02:07 06/16/18 02:15 Zofran 4 Mg/2 Ml Vial IV 06/16/18 02:08 4 mg STAT ONE Administration Ondansetron HCl Confirm 06/16/18 02:13 Zofran 4 Mg/2 Ml Vial Administered 06/16/18 02:14 Dose 4 mg .ROUTE .STK-MED ONE Ondansetron HCl 4 mg 06/16/18 08:07 Zofran 4 Mg/2 Ml Vial IV 06/16/18 08:08 STAT ONE Pantoprazole Sodium 40 mg 06/16/18 02:10 06/16/18 02:16 Protonix 40mg Tablet PO 06/16/18 02:11 40 mg STAT ONE Administration Pantoprazole Sodium Confirm 06/16/18 02:13 Protonix 40mg Tablet Administered 06/16/18 02:14 Dose 40 mg .ROUTE .STK-MED ONE Lab/Rad Data: Laboratory Result Diagrams 06/16/18 01:53 06/16/18 01:53 Laboratory Results 06/16/18 06/16/18 06/16/18 Range/Units 05:35 01:53 01:53 WBC (4.0-10.5) K/mm3 RBC (4.1-5.4) M/mm3 Hgb (12.0-16.0) gm/dl Hct (35-47) % MCV (78-100) fl MCH (26-32) pg MCHC (32-36) g/dl RDW (11.5-14.0) % Plt Count (150-450) K/mm3 MPV (6-9.5) fl Gran % (36.0-66.0) % Eos # (Auto) (0-0.5) Absolute Lymphs (auto) (1.0-4.6) Absolute Monos (auto) (0.0-1.3) Lymphocytes % (24.0-44.0) % Monocytes % (0.0-12.0) % Eosinophils % (0.00-5.0) % Basophils % (0.0-0.4) % Absolute Granulocytes (1.4-6.9) Basophils # (0-0.4) Sodium 141 (137-145) mmol/L Potassium 5.1 (3.5-5.1) mmol/L Chloride 105 (98-107) mmol/L Carbon Dioxide 27 (22-30) mmol/L Anion Gap 14.6 (5-15) MEQ/L BUN 31 H (7-17) mg/dL Creatinine 1.45 H (0.52-1.04) mg/dL Estimated GFR 36.4 ML/MIN Glucose 119 H (74-106) mg/dL Calcium 9.9 (8.4-10.2) mg/dL Total Bilirubin 0.40 (0.2-1.3) mg/dL AST 18 (14-36) U/L ALT 14 (0-35) U/L Alkaline Phosphatase 104 (38-126) U/L Troponin I < 0.012 < 0.012 (0.000-0.034) ng/mL Serum Total Protein 7.7 (6.3-8.2) g/dL Albumin 4.3 (3.5-5.0) g/dL 06/16/18 Range/Units 01:53 WBC 8.8 (4.0-10.5) K/mm3 RBC 4.22 (4.1-5.4) M/mm3 Hgb 12.0 (12.0-16.0) gm/dl Hct 37.9 (35-47) % MCV 89.8 (78-100) fl MCH 28.4 (26-32) pg MCHC 31.7 L (32-36) g/dl RDW 13.7 (11.5-14.0) % Plt Count 335 (150-450) K/mm3 MPV 11.0 H (6-9.5) fl Gran % 59.7 (36.0-66.0) % Eos # (Auto) 0.23 (0-0.5) Absolute Lymphs (auto) 2.05 (1.0-4.6) Absolute Monos (auto) 1.23 (0.0-1.3) Lymphocytes % 23.4 L (24.0-44.0) % Monocytes % 14.1 H (0.0-12.0) % Eosinophils % 2.6 (0.00-5.0) % Basophils % 0.2 (0.0-0.4) % Absolute Granulocytes 5.22 (1.4-6.9) Basophils # 0.02 (0-0.4) Sodium (137-145) mmol/L Potassium (3.5-5.1) mmol/L Chloride (98-107) mmol/L Carbon Dioxide (22-30) mmol/L Anion Gap (5-15) MEQ/L BUN (7-17) mg/dL Creatinine (0.52-1.04) mg/dL Estimated GFR ML/MIN Glucose (74-106) mg/dL Calcium (8.4-10.2) mg/dL Total Bilirubin (0.2-1.3) mg/dL AST (14-36) U/L ALT (0-35) U/L Alkaline Phosphatase (38-126) U/L Troponin I (0.000-0.034) ng/mL Serum Total Protein (6.3-8.2) g/dL Albumin (3.5-5.0) g/dL - Progress Progress: improved Air Movement: fair Progress Note: Pt presented to the ED secondary to epigastric pain and chest discomfort. No changes on EKG. Troponin I x2 were normal. labs are normal, but sCr that is slightly elevated. Pt did get Pepcid IV, and Protonix. She got IVF 1 lit bolus. Pt should f/u with her PCp as out pt, next week. 06/16/18 08:16 Blood Culture(s) Obtained: No Antibiotics given: No Discussed with : Lamar Counseled pt/family regarding: need for follow-up - Departure Time of Disposition: 08:18 Departure Disposition: Home Clinical Impression: GERD (gastroesophageal reflux disease) Condition: Stable Critical Care Time: No Referrals: KIERRA PETERSEN [Primary Care Provider] - Additional Instructions: Take meds as ordered, and f/u with PCP next week. Prescriptions: Ondansetron ODT 4 MG [Zofran Odt 4 mg] 4 mg PO Q6H PRN PRN 10 Days #30 tab.rapdis PRN Reason: Nausea PANTOPRAZOLE 40 mg Tablet [Protonix 40MG Tablet] 40 mg PO QAM 30 Days #30 tab
[2018-06-16 08:23] VITALS: BP 160/61; O2SAT 96
--- NOTE | 2018-06-17 10:51 | HP ---
CHIEF COMPLAINT: Vomiting. HISTORY OF PRESENT ILLNESS: The patient is an 87 year-old white female who presented to the emergency room with intractable vomiting. She was getting dehydrated and somewhat weakened. She is 87 years old and was felt the need to have hospitalization for IV fluids hydration and antiemetic for vomiting, IV fluids for hydration. PAST MEDICAL/SURGICAL HISTORY: Significant for hypothyroid, gastroesophageal reflux disease. She has occasional urinary incontinence. She has had hysterectomy. She had right shoulder surgery. HOME MEDICATIONS: Aspirin 81 mg daily, Synthroid 25 mcg daily, famotidine 20 mg daily, Ditropan Extended Release 5 mg 2 tablets daily. ALLERGIES: NKDA. PHYSICAL EXAMINATION: The patient's vital signs in the emergency room showed a temperature 97.8F, pulse 64, respiratory rate 18, blood pressure 129/67. O2 saturation 94% on room air. HEENT: Normocephalic, atraumatic. Pupils equal round reactive to light. Extraocular movements intact. Oropharynx is dry. NECK: Supple without lymphadenopathy, thyromegaly or JVD. CHEST: Clear to auscultation with good air movement bilaterally. HEART: Regular rate and rhythm without murmurs, rubs or gallops. ABDOMEN: Soft. No palpable masses. nontender, nondistended without hepatosplenomegaly or masses. EXTREMITIES: Without cyanosis, clubbing or edema. NEUROLOGIC: The patient is alert and oriented x3. No focal deficits are noted. LAB DATA AND TESTS: Laboratory studies from the emergency room had shown troponins to be less than 0.012. Her sugar was 119, BUN 31, creatinine 1.45. Electrolytes are normal. Liver enzymes normal. White blood cell count 8,800, hemoglobin 12.0. PLT count 235,000. ASSESSMENT: A patient with vomiting and dehydration and now diarrhea. She was swabbed for influenza. We will check stools for Clostridium difficile. If negative she will receive Imodium to help decrease the diarrhea. The patient is already doing better from the nausea aspect and taking some clear liquids at this time. We will advance diet as tolerated and make sure she is well hydrated. We will monitor her ambulation for fall with hopeful return home soon once she is rehydrated and no longer having vomiting or diarrhea.
== END 2018-06-16 09:15 | disposition home or self-care (01) ==
LOC: ED 01:50
DX: K21.9 Gastro-esophageal reflux disease without esophagitis (principal)
CPT/HCPCS: 36000; 36415; 80053; 84484; 85025; 93041; 96360; 96374; 96376; 99284; J2270; J2405; A9270-GY

== ENCOUNTER 2018-06-16 09:44 | Observation (INO) | payer MEDICARE, OTHER ==
--- NOTE | 2018-06-16 09:49 | PCM.HP ---
History of Present Illness - Chief Complaint Chief Complaint: nausea and vomiting History of Present Illness: is a 87 year old female who presented to the ER this morning with complaints of epigastric abdominal pain, weakness and nausea and vomiting. she was seen in the ER and evaluated and labs were reassuring and she was to be discharged but then nursing called me because family requested to speak to Dr Newton, they didn't feel comfortable with her returning to her home. She has had TIAs in the past, she is a poor historian. no diarrhea she knows of it but can't remember. - Review of Systems Constitutional: Weakness, No Fever, No Chills Respiratory: No Cough, No Short Of Breath Cardiac: No Chest Pain, No Edema, No Syncope Abdominal/Gastrointestinal: Abdominal Pain, Nausea, Vomiting, No Diarrhea, No Constipation Genitourinary Symptoms: No Dysuria Musculoskeletal: No Back Pain, No Neck Pain Skin: No Rash Neurological: No Focal Weakness All Other Systems: Reviewed and Negative Medications & Allergies Home Medications: Home Medication List Aspirin [Aspirin EC] 81 mg PO DAILY 11/24/14 [History Confirmed 04/06/18] Levothyroxine Sodium 25 Mcg [Synthroid 25 Mcg] 25 mcg PO DAILY 11/24/14 [ History Confirmed 04/06/18] Clopidogrel Bisulfate 75 mg [PLAVIX 75 MG Tablet] 75 mg PO DAILY #30 tablet 12/06/17 [Rx Confirmed 04/06/18] Famotidine 20 mg [Pepcid 20 MG] 20 mg PO DAILY 12/06/17 [History Confirmed 04/06/18] Oxybutynin Chloride Xl 5 mg [Ditropan XL 5 MG] 10 mg PO DAILY 12/06/17 [ History Confirmed 04/06/18] Ondansetron ODT 4 MG [Zofran Odt 4 mg] 4 mg PO Q6H PRN PRN 10 Days #30 tab.rapdis 06/16/18 [Rx] PANTOPRAZOLE 40 mg Tablet [Protonix 40MG Tablet] 40 mg PO QAM 30 Days #30 tab 06/16/18 [Rx] Allergies/Adverse Reactions: Allergies Allergy/AdvReac Type Severity Reaction Status Date / Time No Known Drug Allergies Allergy Verified 06/16/18 01:56 - Past Medical History Past Medical History: Yes Neurological History: No Pertinent History ENT History: Cataracts Cardiac History: Arrhythmia, Other Respiratory History: No Pertinent History Endocrine Medical History: Adrenal Insufficiency, Hypothyroidism Musculoskelatal History: Osteoarthritis GI Medical History: No Pertinent History, GERD History: No Pertinent History Pyscho-Social History: No Pertinent History Reproductive Disorders: No Pertinent History Comment: Pacemaker - Past Surgical History Past Surgical History: Yes Neuro Surgical History: No Pertinent History Cardiac History: Cardiac Catheterization, Pacemaker Respiratory Surgery: No Pertinent History GI Surgical History: Appendectomy, Cholecystectomy Genitourinary Surgical Hx: No Pertinent History Musculskeletal Surgical Hx: Orthopedic Surgery Female Surgical History: Hysterectomy Other Surgical History: shoulder right - Social History Smoking Status: Never smoker Exposure to second hand smoke: No Alcohol: Rarely Drug Use: none - Physical Exam General Appearance: no apparent distress Neurologic Exam: alert, oriented x 3, cooperative Eye Exam: PERRL/EOMI, eyes nml inspection Respiratory Exam: normal breath sounds, lungs clear, No respiratory distress Cardiovascular Exam: regular rate/rhythm, normal heart sounds, normal peripheral pulses Gastrointestinal/Abdomen Exam: soft, normal bowel sounds, No tenderness, No mass Extremity Exam: normal inspection, normal range of motion, pelvis stable Skin Exam: normal color, warm, dry, No rash Assessment/Plan (1) Nausea and vomiting Current Visit: Yes Status: Acute Assessment & Plan: will treat with antiemetic and fluids. Code(s): R11.2 - NAUSEA WITH VOMITING, UNSPECIFIED (2) Weakness Current Visit: Yes Status: Acute Assessment & Plan: PT consult Code(s): R53.1 - WEAKNESS (3) Dehydration Current Visit: Yes Status: Acute Assessment & Plan: rehydrating gently Code(s): E86.0 - DEHYDRATION
[2018-06-16] MEDS ORDERED: TYLENOL 325 MG PO PRN (10:30)
[2018-06-16] MEDS: Sodium Chloride 0.9% 1000 ML 1,000 ML IV SCH (10:45)
[2018-06-16] MEDS: Phenergan 25 MG INJ IM PRN ×2 (10:54→23:01)
[2018-06-16] MEDS ORDERED: PROTONIX 40 MG IV IV SCH ×2 (11:00→22:00)
[2018-06-16] MEDS: Zofran 4 MG/2 ML VIAL IV PRN ×2 (12:51→20:37)
[2018-06-16] MEDS: Lopressor 50 MG PO SCH (21:56)
[2018-06-17] MEDS: Sodium Chloride 0.9% 1000 ML 1,000 ML IV SCH (01:14)
[2018-06-17] MEDS ORDERED: PLAVIX 75 MG Tablet PO SCH (10:00)
[2018-06-17] MEDS ORDERED: SYNTHROID 25 MCG PO SCH (10:00)
[2018-06-17] MEDS ORDERED: NON-FORMULARY ITEM (Bacillus Coagulans [Probiotic] 1 EACH) PO SCH (10:00)
[2018-06-17] MEDS ORDERED: Acidophilus TABLET PO SCH (10:00)
[2018-06-17] MEDS ORDERED: Patanol 1% OPHTHALMIC OP SCH (10:00)
[2018-06-17] MEDS ORDERED: Ditropan XL 5 MG PO SCH (10:00)
[2018-06-17] MEDS ORDERED: Pepcid 20 MG PO SCH (10:00)
[2018-06-17] MEDS: Lopressor 50 MG PO SCH (10:05)
[2018-06-17 10:25] LABS: INFLUENZA A NEGATIVE (NEGATIVE); INFLUENZA B NEGATIVE (NEGATIVE); RESPIRATORY SYNCTIAL VIRUS NEGATIVE (Negative)
[2018-06-17 10:37] LABS: 027 TOX PROD PRESUMPTIVE NEGATIVE (NEGATIVE); TOXIGENIC C. DIFF ORG NEGATIVE (NEGATIVE)
[2018-06-17 11:39] VITALS: BP 108/53; PULSE 60; O2SAT 92
[2018-06-17] MEDS ORDERED: IMODIUM 2 MG PO ONE (14:57)
--- NOTE | 2018-06-17 14:57 | PCM.DCORD ---
- Discharge Discharge Date: 06/17/18 Condition: Good Prescriptions: Continue Levothyroxine Sodium 25 Mcg [Synthroid 25 Mcg] 25 mcg PO DAILY Oxybutynin Chloride Xl 5 mg [Ditropan XL 5 MG] 10 mg PO DAILY Famotidine 20 mg [Pepcid 20 MG] 20 mg PO DAILY Clopidogrel Bisulfate 75 mg [PLAVIX 75 MG Tablet] 75 mg PO DAILY #30 tablet Omeprazole 20 mg PO DAILY Metoprolol Tartrate 100 mg PO BID Olopatadine HCl Ophth [Patanol 1% OPHTHALMIC] 1 drop OP DAILY Bacillus Coagulans [Probiotic] 1 each PO DAILY Instructions: Nausea and Vomiting, Adult (DC) Follow up with: KIERRA PETERSEN [Primary Care Provider] - 06/24/18 1:00 pm Forms: Discharge Instructions
== END 2018-06-17 16:05 | disposition home or self-care (01) ==
LOC: MED SURG 09:44
PROVIDERS: ADMIT Family Medicine; ATTEND Family Medicine
DX: R11.2 Nausea with vomiting, unspecified (principal); K52.9 Noninfective gastroenteritis and colitis, unspecified; E86.0 Dehydration; R10.13 Epigastric pain; R53.1 Weakness; Z86.73 Personal history of transient ischemic attack (TIA), and cerebral infarction without residual deficits; Z79.01 Long term (current) use of anticoagulants; Z79.899 Other long term (current) drug therapy
CPT/HCPCS: 36000; 36415; 80053; 84484; 85025; 87493; 87631; 93041; 96360; 96374; 96376; 97161; 99284; G0378; J2270; J2405; J2550; A9270-GY

== ENCOUNTER 2018-06-19 14:30 | Observation (INO) | payer MEDICARE, OTHER ==
[2018-06-19 15:07] LABS: BASOPHIL % 0.2 % (0.0-0.4); Basophil (Absolute #) 0.01 (0-0.4); Eosinophil % 0.6 % (0.00-5.0); Eosinophil (Absolute #) 0.03 (0-0.5); Granulocytes % 55.9 % (36.0-66.0); Hematocrit 35.7 % (35-47); Hemoglobin 11.2 gm/dl (12.0-16.0); Lymphocyte (Absolute #) 1.35 (1.0-4.6); Lymphocytes % 25.2 % (24.0-44.0); Mean Cell Volume 89.5 fl (78-100); Mean Corpuscular Hgb Concent. 31.4 g/dl (32-36); Mean Platelet Volume 10.8 fl (6-9.5); Monocyte (Absolute #) 0.97 (0.0-1.3); Monocytes % 18.1 % (0.0-12.0); Platelet Count 325 K/mm3 (150-450); Red Blood Count 3.99 M/mm3 (4.1-5.4); Red Cell Distribution Width 13.4 % (11.5-14.0); White Blood Count 5.4 K/mm3 (4.0-10.5)
[2018-06-19 15:33] LABS: ALBUMIN 4.1 g/dL (3.5-5.0); ANION GAP 15.4 MEQ/L (5-15); BILIRUBIN,TOTAL 0.9 mg/dL (0.2-1.3); Calcium 9.2 mg/dL (8.4-10.2); Creatinine 1 1.18 mg/dL (0.52-1.04); Potassium 4.8 mmol/L (3.5-5.1); Total Protein 7.3 g/dL (6.3-8.2)
[2018-06-19] MEDS: Zofran 4 MG/2 ML VIAL IV PRN (15:36)
[2018-06-19] MEDS ORDERED: TYLENOL 325 MG PO PRN (15:48)
[2018-06-19] MEDS ORDERED: Sodium Chloride 0.9% 1000 ML 1,000 ML IV SCH (16:00)
[2018-06-19] MEDS: PROTONIX 40 MG IV IV SCH (16:06)
--- NOTE | 2018-06-19 16:38 | XRAY ---
Indication: Abdomen pain, nausea, and vomiting. Multiple contiguous axial images obtained through the abdomen and pelvis without contrast as ordered. Comparison: September 02, 2017. Lung bases again demonstrates bibasilar atelectasis/scarring. No infiltrate or effusion. Heart is not enlarged. Stable small hiatal hernia. Noncontrasted stomach and bowel loops appear nonobstructed. There are now mild uniformly fluid distended small bowel loops with synchronous fluid leveling, ileus versus enteritis. Also new ileocecal and cecal bowel wall thickening with minimal stranding commonly associated with Crohn's disease. New tiny perihepatic free fluid presumed reactive. No walled off fluid collection or free air. Stable sigmoid diverticulosis, cholecystectomy clips, hysterectomy, calcified splenic granulomas, fatty-replaced pancreas, 2 cm pancreatic tail cyst, and right extrarenal pelvis. Remaining liver, pancreas, spleen, adrenal glands, kidneys, ureters, and bladder appear unremarkable for noncontrast exam. Stable mild aortoiliac calcifications without AAA. Osseous structures intact again without osteopenia, moderate/advanced multilevel degenerative spondylosis, and levorotoscoliosis. Impression: 1. New fluid distended small bowel loops with synchronous fluid leveling, ileus versus enteritis. New tiny perihepatic fluid may be related. 2. New ileocecal junction and cecal bowel wall thickening. Rule out Crohn's disease. 3. Stable small hiatal hernia, sigmoid diverticulosis, and pancreatic tail cyst. CTDI 22.36
[2018-06-19] MEDS: solu-MEDROL 125 MG IV SCH ×2 (17:30→23:02)
[2018-06-19] MEDS: Lopressor 50 MG PO SCH (23:00)
[2018-06-20 03:30] LABS: Appearance CLEAR (CLEAR); Bilirubin NEGATIVE (NEGATIVE); Blood NEGATIVE Ery/ul (0-5); Glucose NEGATIVE (NEGATIVE); Ketones TRACE (NEGATIVE); Leukocyte Esterase NEGATIVE (NEGATIVE); Mucus SLIGHT /HPF (NEGATIVE); Nitrite NEGATIVE (NEGATIVE); Protein,Urine Dip NEGATIVE (Negative); Specific Gravity 1.009 (1.005-1.025); Urobilinogen NEGATIVE mg/dL (0-1)
[2018-06-20] MEDS: solu-MEDROL 125 MG IV SCH (05:34)
[2018-06-20 07:10] LABS: Adenovirus F 40/41 NEGATIVE (NEGATIVE); Astrovirus NEGATIVE (NEGATIVE); C. Difficile Organism NEGATIVE (NEGATIVE); Campylobacter NEGATIVE (NEGATIVE); Cyclospora cayentanensis NEGATIVE (NEGATIVE); Entamoeaba histolytica NEGATIVE (NEGATIVE); Enteroaggregative E.coli NEGATIVE (NEGATIVE); Giardia lamblia NEGATIVE (NEGATIVE); Rotavirus A NEGATIVE (NEGATIVE); Salmonella NEGATIVE (NEGATIVE); Sapovirus NEGATIVE (NEGATIVE); Shiga-like toxin prod.E.coli NEGATIVE (NEGATIVE); Vibrio NEGATIVE (NEGATIVE)
[2018-06-20] MEDS: D5W/0.45NS W/ 20mEq KCl 1000 ML 1,000 ML IV SCH ×2 (08:54→18:55)
[2018-06-20] MEDS: Lopressor 50 MG PO SCH ×2 (08:56→22:29)
[2018-06-20] MEDS: PROTONIX 40 MG IV IV SCH (08:57)
[2018-06-20] MEDS ORDERED: Patanol 1% OPHTHALMIC OP SCH (10:00)
[2018-06-20] MEDS ORDERED: Ditropan XL 5 MG PO SCH (10:00)
[2018-06-20] MEDS ORDERED: ENOXAPARIN SODIUM SQ SCH (10:00)
[2018-06-20] MEDS ORDERED: Pepcid 20 MG PO SCH (10:00)
[2018-06-20] MEDS ORDERED: PLAVIX 75 MG Tablet PO SCH (10:00)
[2018-06-20] MEDS ORDERED: SYNTHROID 25 MCG PO SCH (10:00)
[2018-06-21] MEDS: D5W/0.45NS W/ 20mEq KCl 1000 ML 1,000 ML IV SCH (05:05)
[2018-06-21] MEDS: Zofran 4 MG/2 ML VIAL IV PRN (05:05)
[2018-06-21 05:54] LABS: BASOPHIL % 0.2 % (0.0-0.4); Basophil (Absolute #) 0.02 (0-0.4); Eosinophil % 0.1 % (0.00-5.0); Eosinophil (Absolute #) 0.01 (0-0.5); Granulocyte Absolute (ANC) 7.68 (1.4-6.9); Granulocytes % 72.2 % (36.0-66.0); Hematocrit 29.6 % (35-47); Hemoglobin 9.2 gm/dl (12.0-16.0); Lymphocyte (Absolute #) 1.85 (1.0-4.6); Lymphocytes % 17.4 % (24.0-44.0); Mean Cell Volume 90.8 fl (78-100); Mean Corpuscular Hemoglobin 28.2 pg (26-32); Mean Corpuscular Hgb Concent. 31.1 g/dl (32-36); Mean Platelet Volume 10.9 fl (6-9.5); Monocyte (Absolute #) 1.07 (0.0-1.3); Monocytes % 10.1 % (0.0-12.0); Platelet Count 315 K/mm3 (150-450); Red Blood Count 3.26 M/mm3 (4.1-5.4); Red Cell Distribution Width 13.5 % (11.5-14.0); White Blood Count 10.6 K/mm3 (4.0-10.5)
[2018-06-21 06:18] LABS: ALBUMIN 3.1 g/dL (3.5-5.0); ANION GAP 11.3 MEQ/L (5-15); BILIRUBIN,TOTAL 0.3 mg/dL (0.2-1.3); Calcium 8.6 mg/dL (8.4-10.2); Creatinine 1 1.16 mg/dL (0.52-1.04); Potassium 4.6 mmol/L (3.5-5.1); Total Protein 5.6 g/dL (6.3-8.2)
[2018-06-21 07:19] VITALS: BP 135/61; PULSE 70; O2SAT 98
--- NOTE | 2018-06-21 07:49 | HP ---
CHIEF COMPLAINT: Nausea and vomiting. HISTORY OF PRESENT ILLNESS: The patient is an 87 year-old white female who lives at home currently and had an episode of vomiting and diarrhea which brought her into the hospital approximately three or four days prior to her admission. The patient had actually done much better overnight with fluid hydration and was able to eat but however after going home had recurrent episodes of nausea and vomiting. She was seen in the office of Dr. Marques and then readmitted to the hospital for further IV fluids and antiemetic. PAST MEDICAL/SURGICAL HISTORY: Significant for mild dementia. She has had previous coronary artery disease. She has hypothyroidism and hypertension. She has bladder leakage. HOME MEDICATIONS: She takes probiotics daily, Plavix 75 mg a day, famotidine 20 mg a day, levothyroxine 25 mcg, metoprolol 100 mg b.i.d., omeprazole 20 mg a day, oxybutynin 10 mg a day. ALLERGIES: NKDA. PHYSICAL EXAMINATION: Revealed a well-nourished, well-developed 87 year-old white female currently in no distress. Her vital signs on admission showed her to be afebrile, pulse 72, respiratory rate 18, blood pressure 140/61. O2 saturation 94% on room air. HEENT: Normocephalic, atraumatic. Pupils equal round reactive to light. Extraocular movements intact. Oropharynx is somewhat dry. NECK: Supple without lymphadenopathy, thyromegaly or JVD. CHEST: Clear to auscultation. HEART: Regular rate and rhythm without murmurs, rubs or gallops. ABDOMEN: Soft. No palpable masses. EXTREMITIES: Without cyanosis, clubbing or edema. NEUROLOGIC: The patient is alert and oriented x3 although at times she is somewhat confused. She has no focal neurologic symptoms. LAB DATA AND TESTS: On admission showed her white count to be 5,400, hemoglobin 11.2, PLT count 325,000. Her metabolic panel showed sugar 115, BUN 27, creatinine 1.18. Electrolytes were normal. Liver enzymes were normal. UA showed specific gravity of 1.009 and looked normal otherwise. She did have CT scan of abdomen and pelvis which showed new fluid, distended small bowel loops, ileus versus enteritis. It had also suggested possible cecal bowel wall thickening; rule out Crohn's, stable small hiatal hernia and sigmoid diverticulosis. ASSESSMENT: The patient has been admitted to the hospital for IV fluid hydration, antiemetic. We will monitor her closely for her to be able to return home since she does live at home by herself presently. Although she has frequent visits by her daughters. She will need to be able to ambulate by herself and be able to take food well before she discharges home this time.
== END 2018-06-21 10:40 | disposition home or self-care (01) ==
LOC: MED SURG 14:31
PROVIDERS: ADMIT Family Medicine; ATTEND Family Medicine
DX: R11.2 Nausea with vomiting, unspecified (principal); R19.7 Diarrhea, unspecified; R10.9 Unspecified abdominal pain; E03.9 Hypothyroidism, unspecified; I10 Essential (primary) hypertension; F03.90 Unspecified dementia, unspecified severity, without behavioral disturbance, psychotic disturbance, mood disturbance, and anxiety; Z79.01 Long term (current) use of anticoagulants; Z79.899 Other long term (current) drug therapy; K44.9 Diaphragmatic hernia without obstruction or gangrene; K57.30 Diverticulosis of large intestine without perforation or abscess without bleeding
CPT/HCPCS: 36415; 74176; 80053; 81001; 85025; 87507; 94760; G0378; J1650; J2405; J2930; A9270-GY

== ENCOUNTER 2018-06-23 18:35 | Inpatient (IN) | payer MEDICARE, OTHER ==
[2018-06-23] MEDS ORDERED: Sodium Chloride 0.9% 1000 ML 1,000 ML IV STA (19:15)
[2018-06-23] MEDS ORDERED: Sodium Chloride 0.9% 1000 ML 1,000 ML ONE (19:31)
[2018-06-23 19:32] LABS: BASOPHIL % 0.2 % (0.0-0.4); Basophil (Absolute #) 0.02 (0-0.4); Eosinophil % 1.7 % (0.00-5.0); Eosinophil (Absolute #) 0.22 (0-0.5); Granulocyte Absolute (ANC) 8.89 (1.4-6.9); Granulocytes % 69.4 % (36.0-66.0); Hematocrit 38.1 % (35-47); Hemoglobin 12.3 gm/dl (12.0-16.0); Lymphocyte (Absolute #) 1.92 (1.0-4.6); Mean Cell Volume 88.2 fl (78-100); Mean Corpuscular Hemoglobin 28.5 pg (26-32); Mean Corpuscular Hgb Concent. 32.3 g/dl (32-36); Mean Platelet Volume 10.8 fl (6-9.5); Monocyte (Absolute #) 1.76 (0.0-1.3); Monocytes % 13.7 % (0.0-12.0); Platelet Count 385 K/mm3 (150-450); Red Blood Count 4.32 M/mm3 (4.1-5.4); White Blood Count 12.8 K/mm3 (4.0-10.5)
[2018-06-23 19:38] LABS: ALBUMIN 4.3 g/dL (3.5-5.0); ANION GAP 16.3 MEQ/L (5-15); BILIRUBIN,TOTAL 0.6 mg/dL (0.2-1.3); Calcium 9.1 mg/dL (8.4-10.2); Creatinine 1 1.13 mg/dL (0.52-1.04); Potassium 4.1 mmol/L (3.5-5.1); Total Protein 7.4 g/dL (6.3-8.2)
[2018-06-23] MEDS ORDERED: Xifaxan 200 MG PO STA (20:39)
[2018-06-23 21:12] LABS: Appearance CLEAR (CLEAR); Bilirubin NEGATIVE (NEGATIVE); Blood NEGATIVE Ery/ul (0-5); Glucose NEGATIVE (NEGATIVE); Ketones NEGATIVE (NEGATIVE); Leukocyte Esterase NEGATIVE (NEGATIVE); Nitrite NEGATIVE (NEGATIVE); Protein,Urine Dip NEGATIVE (Negative); Specific Gravity 1.005 (1.005-1.025); Urobilinogen NEGATIVE mg/dL (0-1)
[2018-06-23 21:26] LABS: Bacteria NONE SEEN /HPF (NEGATIVE)
[2018-06-23 21:42] LABS: 027 TOX PROD PRESUMPTIVE NEGATIVE (NEGATIVE); TOXIGENIC C. DIFF ORG NEGATIVE (NEGATIVE)
--- NOTE | 2018-06-23 22:39 | ERPHSYRPT ---
- History of Present Illness Historian: patient, family Exam Limitations: no limitations Patient Subjective Stated Complaint: patient and family state that patient was released sunday from this hospital after being treated for nausea, vomiting and diarrhea. family states she has had these episodes three times in the past few weeks. has had several tests and cannot find out what is causing symptoms. also recent hx of tia's. Triage Nursing Assessment: to room per w/c. skin w/d, pale. resp nonlabored. patient holding emesis bag with small amt of clear emesis in it. abd soft, nontender but states she feels pressure in abd. states had diarrhea all day yesterday but none today. Physician History: Pt is an 87 y/o female that was hospitalized here twice the last week. Pt complains of abdominal pain, nausea, and diarrhea that is hard to control. Pt states, she has so many diarrhea episodes, that she can't keep herself hydrated. Pt denies F/C/S. No SOB, but she has dry cough. No chest discomfort or palpitations. Pt was a direct admit by Dr Soto on Sunday a week ago, Dr Marques during the week, and now was refered to the ER by Dr Marques. Activities at Onset: none Quality: cramping Abdominal Pain Onset Location: generalized abdomen Pain Radiation: no radiation Severity of Pain-Max: moderate Severity of Pain-Current: moderate Modifying Factors: Improves With: nothing Associated Symptoms: diarrhea, nausea Previous symptoms: same symptoms as today, recent hospitalization Allergies/Adverse Reactions: No Known Drug Allergies Allergy (Verified 06/23/18 18:46) Home Medications: Levothyroxine Sodium 25 Mcg [Synthroid 25 Mcg] 25 mcg PO DAILY 11/24/14 [ History] Famotidine 20 mg [Pepcid 20 MG] 20 mg PO DAILY 12/06/17 [History] Oxybutynin Chloride Xl 5 mg [Ditropan XL 5 MG] 10 mg PO DAILY 12/06/17 [ History] Bacillus Coagulans [Probiotic] 1 each PO DAILY 06/16/18 [History] Metoprolol Tartrate 100 mg PO BID 06/16/18 [History] Olopatadine HCl Ophth [Patanol 1% OPHTHALMIC] 1 drop OP DAILY 06/16/18 [ History] Omeprazole 20 mg PO DAILY 06/16/18 [History] Hx Tetanus, Diphtheria Vaccination/Date Given: Yes Hx Influenza Vaccination/Date Given: Yes Hx Pneumococcal Vaccination/Date Given: Yes - Review of Systems Constitutional: No Fever, No Chills Eyes: No Symptoms Ears, Nose, & Throat: No Symptoms Respiratory: Cough, No Dyspnea Cardiac: No Chest Pain, No Edema, No Syncope Abdominal/Gastrointestinal: Abdominal Pain, Nausea, Vomiting, Diarrhea Genitourinary Symptoms: No Dysuria Musculoskeletal: No Back Pain, No Neck Pain Neurological: No Dizziness, No Focal Weakness, No Sensory Changes - Past Medical History Pertinent Past Medical History: Yes Neurological History: No Pertinent History ENT History: Cataracts Cardiac History: Arrhythmia, Other Respiratory History: No Pertinent History Endocrine Medical History: Adrenal Insufficiency, Hypothyroidism Musculoskeletal History: Osteoarthritis GI Medical History: No Pertinent History, GERD History: No Pertinent History Psycho-Social History: No Pertinent History Female Reproductive Disorders: No Pertinent History Other Medical History: Pacemaker - Past Surgical History Past Surgical History: Yes Neuro Surgical History: No Pertinent History Cardiac: Cardiac Catheterization, Pacemaker Respiratory: No Pertinent History Gastrointestinal: Appendectomy, Cholecystectomy Genitourinary: No Pertinent History Musculoskeletal: Orthopedic Surgery Female Surgical History: Hysterectomy Other Surgical History: shoulder right - Social History Smoking Status: Never smoker Exposure to second hand smoke: No Drug Use: none Patient Lives Alone: No - Female History Hx Now: No - Nursing Vital Signs Nursing Vital Signs: Initial Vital Signs Temperature 98.5 F 06/23/18 18:40 Pulse Rate 81 06/23/18 18:40 Respiratory Rate 16 06/23/18 18:40 Blood Pressure 179/71 06/23/18 18:40 O2 Sat by Pulse Oximetry 96 06/23/18 18:40 Pain Scale Pain Intensity 9 - Physical Exam General Appearance: no apparent distress, alert Eye Exam: PERRL/EOMI, eyes nml inspection Ears, Nose, Throat Exam: normal ENT inspection, pharynx normal, moist mucous membranes Neck Exam: normal inspection, non-tender, supple, full range of motion Respiratory Exam: normal breath sounds, lungs clear, No respiratory distress Cardiovascular Exam: regular rate/rhythm, normal heart sounds Gastrointestinal/Abdomen Exam: soft, normal bowel sounds, tenderness (mild, and diffused) Extremity Exam: normal inspection, normal range of motion, pelvis stable Neurologic Exam: alert, oriented x 3, cooperative, normal mood/affect, nml cerebellar function, sensation nml, No motor deficits SpO2: 95 - Course Nursing assessment & vital signs reviewed: Yes Ordered Tests: Active Orders 24 hr Category Date Time Status IV Insertion STAT Care 06/23/18 18:52 Active AMYLASE Stat Lab 06/23/18 19:24 Completed CBC W DIFF Stat Lab 06/23/18 19:24 Completed CMP Stat Lab 06/23/18 19:24 Completed LIPASE Stat Lab 06/23/18 19:24 Completed UA W/RFX UR CULTURE Stat Lab 06/23/18 21:06 Completed Medication Summary Discontinued Medications Generic Name Dose Route Start Last Admin Trade Name Freq PRN Reason Stop Dose Admin Sodium Chloride 1,000 mls @ 999 mls/hr 06/23/18 19:15 06/23/18 20:32 Sodium Chloride 0.9% 1000 Ml IV 06/23/18 20:15 Infused .Q1H1M STA Infusion Sodium Chloride Confirm 06/23/18 19:31 Sodium Chloride 0.9% 1000 Ml Administered 06/23/18 19:32 Dose 1,000 mls @ ud .ROUTE .STK-MED ONE Rifaximin 660 mg 06/23/18 20:39 06/23/18 21:23 Xifaxan 200 Mg PO 06/23/18 20:40 600 mg ONCE STA Administration Lab/Rad Data: Laboratory Result Diagrams 06/23/18 19:24 06/23/18 19:24 Laboratory Results 06/23/18 06/23/18 06/23/18 Range/Units 21:06 20:42 19:24 WBC (4.0-10.5) K/mm3 RBC (4.1-5.4) M/mm3 Hgb (12.0-16.0) gm/dl Hct (35-47) % MCV (78-100) fl MCH (26-32) pg MCHC (32-36) g/dl RDW (11.5-14.0) % Plt Count (150-450) K/mm3 MPV (6-9.5) fl Gran % (36.0-66.0) % Eos # (Auto) (0-0.5) Absolute Lymphs (auto) (1.0-4.6) Absolute Monos (auto) (0.0-1.3) Lymphocytes % (24.0-44.0) % Monocytes % (0.0-12.0) % Eosinophils % (0.00-5.0) % Basophils % (0.0-0.4) % Absolute Granulocytes (1.4-6.9) Basophils # (0-0.4) Sodium 138 (137-145) mmol/L Potassium 4.1 (3.5-5.1) mmol/L Chloride 100 (98-107) mmol/L Carbon Dioxide 25 (22-30) mmol/L Anion Gap 16.3 H (5-15) MEQ/L BUN 18 H (7-17) mg/dL Creatinine 1.13 H (0.52-1.04) mg/dL Estimated GFR 48.5 ML/MIN Glucose 101 (74-106) mg/dL Calcium 9.1 (8.4-10.2) mg/dL Total Bilirubin 0.60 (0.2-1.3) mg/dL AST 27 (14-36) U/L ALT 25 (0-35) U/L Alkaline Phosphatase 126 (38-126) U/L Serum Total Protein 7.4 (6.3-8.2) g/dL Albumin 4.3 (3.5-5.0) g/dL Amylase 45 (30-110) U/L Lipase 13 L (23-300) U/L Urine Color STRAW (YELLOW) Urine Appearance CLEAR (CLEAR) Urine pH 6.0 (5-6) Ur Specific [place] 1.005 (1.005-1.025) Urine Protein NEGATIVE (Negative) Urine Ketones NEGATIVE (NEGATIVE) Urine Blood NEGATIVE (0-5) Oscar/ul Urine Nitrite NEGATIVE (NEGATIVE) Urine Bilirubin NEGATIVE (NEGATIVE) Urine Urobilinogen NEGATIVE (0-1) mg/dL Ur Leukocyte Esterase NEGATIVE (NEGATIVE) Urine WBC (Auto) NONE (0-5) /HPF Urine RBC (Auto) NONE (0-2) /HPF U Epithel Cells (Auto) NONE (FEW) /HPF Urine Bacteria (Auto) NONE SEEN (NEGATIVE) /HPF Urine Culture Reflexed NO (NO) Urine Glucose NEGATIVE (NEGATIVE) mg/dL Stl C. diff Tox B Gene NEGATIVE (NEGATIVE) C.difficile 027-NAP1-B1 PRESUMPTIVE NEGATIVE (NEGATIVE) 06/23/18 Range/Units 19:24 WBC 12.8 H (4.0-10.5) K/mm3 RBC 4.32 (4.1-5.4) M/mm3 Hgb 12.3 (12.0-16.0) gm/dl Hct 38.1 (35-47) % MCV 88.2 (78-100) fl MCH 28.5 (26-32) pg MCHC 32.3 (32-36) g/dl RDW 14.0 (11.5-14.0) % Plt Count 385 (150-450) K/mm3 MPV 10.8 H (6-9.5) fl Gran % 69.4 H (36.0-66.0) % Eos # (Auto) 0.22 (0-0.5) Absolute Lymphs (auto) 1.92 (1.0-4.6) Absolute Monos (auto) 1.76 H (0.0-1.3) Lymphocytes % 15.0 L (24.0-44.0) % Monocytes % 13.7 H (0.0-12.0) % Eosinophils % 1.7 (0.00-5.0) % Basophils % 0.2 (0.0-0.4) % Absolute Granulocytes 8.89 H (1.4-6.9) Basophils # 0.02 (0-0.4) Sodium (137-145) mmol/L Potassium (3.5-5.1) mmol/L Chloride (98-107) mmol/L Carbon Dioxide (22-30) mmol/L Anion Gap (5-15) MEQ/L BUN (7-17) mg/dL Creatinine (0.52-1.04) mg/dL Estimated GFR ML/MIN Glucose (74-106) mg/dL Calcium (8.4-10.2) mg/dL Total Bilirubin (0.2-1.3) mg/dL AST (14-36) U/L ALT (0-35) U/L Alkaline Phosphatase (38-126) U/L Serum Total Protein (6.3-8.2) g/dL Albumin (3.5-5.0) g/dL Amylase (30-110) U/L Lipase (23-300) U/L Urine Color (YELLOW) Urine Appearance (CLEAR) Urine pH (5-6) Ur Specific [place] (1.005-1.025) Urine Protein (Negative) Urine Ketones (NEGATIVE) Urine Blood (0-5) Oscar/ul Urine Nitrite (NEGATIVE) Urine Bilirubin (NEGATIVE) Urine Urobilinogen (0-1) mg/dL Ur Leukocyte Esterase (NEGATIVE) Urine WBC (Auto) (0-5) /HPF Urine RBC (Auto) (0-2) /HPF U Epithel Cells (Auto) (FEW) /HPF Urine Bacteria (Auto) (NEGATIVE) /HPF Urine Culture Reflexed (NO) Urine Glucose (NEGATIVE) mg/dL Stl C. diff Tox B Gene (NEGATIVE) C.difficile 027-NAP1-B1 (NEGATIVE) - Progress Progress: unchanged Progress Note: 06/23/18 22:41 Pt had multiple hospitalization for same symptoms. Today she had a little increase in her sCr and WBCs. She did get IVF in the ED, and stool was sent for culture, O&P and C diff. C diff was negative. 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 Dr Marques is accepting for observation, and Dr Newton her PCP will decide on treatment and colonoscopy. Discussed with : Jerald Will see patient in: hospital (observation) Counseled pt/family regarding: lab results, diagnosis - Departure Time of Disposition: 22:44 Departure Disposition: Home Clinical Impression: Diarrhea Condition: Stable Critical Care Time: No Referrals: KIERRA NEWTON [Primary Care Provider] -
[2018-06-23] MEDS: Sodium Chloride 0.9% 1000 ML 1,000 ML IV SCH (23:28)
[2018-06-24 05:36] LABS: BASOPHIL % 0.2 % (0.0-0.4); Basophil (Absolute #) 0.02 (0-0.4); Eosinophil (Absolute #) 0.19 (0-0.5); Granulocyte Absolute (ANC) 6.17 (1.4-6.9); Granulocytes % 65.2 % (36.0-66.0); Hematocrit 34.8 % (35-47); Hemoglobin 11.1 gm/dl (12.0-16.0); Lymphocyte (Absolute #) 1.61 (1.0-4.6); Mean Cell Volume 89.2 fl (78-100); Mean Corpuscular Hgb Concent. 31.9 g/dl (32-36); Mean Platelet Volume 10.5 fl (6-9.5); Monocyte (Absolute #) 1.48 (0.0-1.3); Monocytes % 15.6 % (0.0-12.0); Platelet Count 343 K/mm3 (150-450); Red Cell Distribution Width 13.9 % (11.5-14.0); White Blood Count 9.5 K/mm3 (4.0-10.5)
[2018-06-24 05:42] LABS: Mean Corpuscular Hemoglobin 28.4 pg (26-32)
[2018-06-24 05:57] LABS: ALBUMIN 3.4 g/dL (3.5-5.0); ANION GAP 10.7 MEQ/L (5-15); BILIRUBIN,TOTAL 0.4 mg/dL (0.2-1.3); Calcium 8.6 mg/dL (8.4-10.2); Creatinine 1 1.14 mg/dL (0.52-1.04); Potassium 4.6 mmol/L (3.5-5.1)
[2018-06-24] MEDS: Zofran 4 MG/2 ML VIAL IV PRN (07:48)
--- NOTE | 2018-06-24 09:13 | HP ---
CHIEF COMPLAINT: Nausea, abdominal pain and diarrhea. HISTORY OF PRESENT ILLNESS: The patient is an 87 year-old white female now on her third visit to the hospital for same complaints. She presented to the emergency room and previously had direct admit to the hospital on 06/19/2018. She did have a CT scan showing ileus-type pattern and possible thickening of the area near the cecum concerning for possible Crohn's although the patient had no previous history of inflammatory bowel disease. The patient has previously had hysterectomy, cholecystectomy and appendectomy. Patient's previous visits she did have nausea which was improved IV Zofran and/or Phenergan. She would get to be feeling better and was able to take fluids and eat and had been discharged home feeling fine both the previous two times. The patient represents yet again for similar complaints complaining of suprapubic pain and just nausea more than actual pain. PAST MEDICAL/SURGICAL HISTORY: Otherwise significant for hypothyroid, hypertension, previous history of gastroesophageal reflux disease. She had cataracts removed as well. HOME MEDICATIONS: Levothyroxine 25 mg daily, Pepcid 20 mg a day, Ditropan 5 mg 2 tablets a day. She has been on probiotic, metoprolol 100 mg b.i.d., Patanol Eye Drops, omeprazole 20 mg a day. ALLERGIES: NKDA. PHYSICAL EXAMINATION: The patient's vital signs on admission showed temperature 98.5F, pulse 81, respiratory rate 16, blood pressure 179/71. O2 saturation 96% on room air. HEENT: Normocephalic, atraumatic. Pupils equal round reactive to light. Extraocular movements intact. Oropharynx is pink and moist. NECK: Supple without lymphadenopathy, thyromegaly or JVD. CHEST: Clear to auscultation. HEART: Regular rate and rhythm. ABDOMEN: Soft. No palpable masses. There is decrease in bowel sounds but bowel sounds were present. EXTREMITIES: Without cyanosis, clubbing or edema. NEUROLOGIC: The patient is alert and oriented x3 although listed inaccurate history from her. LAB DATA AND TESTS: UA appears to be normal. Specific gravity 1.005. Clostridium difficile was negative for at least the second time. The metabolic panel showed glucose of 101, BUN 18, creatinine 1.13. Electrolytes were normal. Liver enzymes normal. Amylase and lipase are normal. Her white blood cell count was slightly elevated at 12,800. Her hemoglobin was 12.3, PLT count 385,000. There is a 69.4% granulocyte. ASSESSMENT: A patient with recurrent nausea and vomiting with complaints of diarrhea as well. We will cover the patient's stooling pattern as it appears to be out of proportion to what she is describing and Clostridium difficile has been tested twice negative. We will repeat CT scan of abdomen and pelvis as the one previously did show an ileus pattern and also thickening of the colon near the ileocecal valve. She will receive IV Protonix, IV Zofran and/or Phenergan for nausea. We will carefully monitor I&O's.
[2018-06-24] MEDS: Lopressor 50 MG PO SCH ×2 (10:19→21:55)
[2018-06-24] MEDS: SYNTHROID 25 MCG PO SCH (10:19)
[2018-06-24] MEDS: ENOXAPARIN SODIUM SQ SCH (10:19)
[2018-06-24] MEDS: Sodium Chloride 0.9% 1000 ML 1,000 ML IV SCH ×2 (10:21→21:24)
[2018-06-24] MEDS: Xifaxan 200 MG PO SCH ×3 (10:21→21:56)
--- NOTE | 2018-06-24 11:31 | XRAY ---
Indication: Abdomen pain with nausea. Multiple contiguous axial images obtained through the abdomen and pelvis without contrast as ordered. Comparison: June 19, 2018. Lung bases again demonstrates bibasilar atelectasis/scarring with new tiny right effusion. Heart is not enlarged. Stable small hiatal hernia. Noncontrasted stomach and bowel loops remain nonobstructed with stable mild fluid distended small bowel loops again with synchronous fluid leveling. Also stable ileocecal and cecal bowel wall thickening with stranding. Remaining colon now demonstrates mild/moderate diffuse circumferential wall thickening. Stable tiny perihepatic free fluid with new tiny pelvic fluid. Stable sigmoid diverticulosis, cholecystectomy, hysterectomy, calcified splenic granulomas, fatty replaced pancreas, pancreatic tail cyst, right extrarenal pelvis, and mild aortoiliac calcifications. Remaining liver, pancreas, spleen, adrenal glands, kidneys, ureters, and bladder appear unremarkable for noncontrast exam. Impression: 1. Stable fluid distended small bowel loops again ileus versus enteritis. 2. Stable ileocecal junction and cecal bowel wall thickening with stranding. New diffuse colonic bowel wall thickening, probable progression Crohn's disease. Tiny perihepatic and pelvic free fluid may be related. 3. Stable incidental hiatal hernia, sigmoid diverticulosis, and pancreatic tail cyst. CT DI 20.59
[2018-06-25] MEDS: Zofran 4 MG/2 ML VIAL IV PRN (00:13)
[2018-06-25] MEDS ORDERED: MORPHINE SULFATE 2 MG INJ IV PRN (01:59)
[2018-06-25] MEDS: Phenergan 25 MG INJ IV PRN (02:04)
[2018-06-25 05:52] LABS: Hematocrit 33.2 % (35-47); Hemoglobin 10.5 gm/dl (12.0-16.0); Mean Cell Volume 90.5 fl (78-100); Mean Corpuscular Hemoglobin 28.6 pg (26-32); Mean Corpuscular Hgb Concent. 31.6 g/dl (32-36); Mean Platelet Volume 10.8 fl (6-9.5); Platelet Count 354 K/mm3 (150-450); Red Blood Count 3.67 M/mm3 (4.1-5.4); Red Cell Distribution Width 14.1 % (11.5-14.0); White Blood Count 9.6 K/mm3 (4.0-10.5)
[2018-06-25 06:06] LABS: ALBUMIN 3.4 g/dL (3.5-5.0); ALKALINE PHOSPHATASE 102 U/L (38-126); AMYLASE < 30 U/L (30-110); ANION GAP 12.2 MEQ/L (5-15); BLOOD UREA NITROGEN 15 mg/dL (7-17); CHLORIDE 103 mmol/L (98-107); Calcium 8.6 mg/dL (8.4-10.2); Carbon Dioxide 26 mmol/L (22-30); Creatinine 1 1.15 mg/dL (0.52-1.04); Glucose 97 mg/dL (74-106); SGOT/AST 22 U/L (14-36); SGPT/ALT 21 U/L (0-35); SODIUM 137 mmol/L (137-145)
[2018-06-25 06:34] LABS: LIPASE < 10 U/L (23-300)
[2018-06-25] MEDS: Sodium Chloride 0.9% 1000 ML 1,000 ML IV SCH ×2 (08:04→21:32)
[2018-06-25] MEDS: solu-MEDROL 125 MG IV SCH ×3 (08:41→19:24)
[2018-06-25] MEDS: Levofloxacin 500MG/100ML D5W 500 MG/100 ML BAG IV SCH (10:13)
[2018-06-25] MEDS: SYNTHROID 25 MCG PO SCH (10:15)
[2018-06-25] MEDS: Lopressor 50 MG PO SCH ×2 (10:15→21:27)
[2018-06-25] MEDS: ENOXAPARIN SODIUM SQ SCH (10:16)
[2018-06-25] MEDS: Xifaxan 200 MG PO SCH ×3 (10:16→21:27)
[2018-06-25 11:44] LABS: Source: Feces
[2018-06-25] MEDS: FLAGYL 500 MG IVPB 250 MG/50 ML BAG IV SCH ×2 (11:57→17:08)
[2018-06-25 12:03] LABS: Giardia Antigen EIA Negative (Negative)
[2018-06-26] MEDS: solu-MEDROL 125 MG IV SCH ×5 (00:32→23:45)
[2018-06-26] MEDS: FLAGYL 500 MG IVPB 250 MG/50 ML BAG IV SCH ×5 (00:34→23:45)
[2018-06-26 05:31] LABS: Hematocrit 31.3 % (35-47); Hemoglobin 9.9 gm/dl (12.0-16.0); Mean Cell Volume 89.9 fl (78-100); Mean Corpuscular Hemoglobin 28.4 pg (26-32); Mean Corpuscular Hgb Concent. 31.6 g/dl (32-36); Mean Platelet Volume 10.3 fl (6-9.5); Platelet Count 332 K/mm3 (150-450); Red Blood Count 3.48 M/mm3 (4.1-5.4); Red Cell Distribution Width 14.2 % (11.5-14.0); White Blood Count 9.2 K/mm3 (4.0-10.5)
[2018-06-26 05:52] LABS: ALBUMIN 3.1 g/dL (3.5-5.0); ANION GAP 13.1 MEQ/L (5-15); BILIRUBIN,TOTAL 0.3 mg/dL (0.2-1.3); Calcium 8.6 mg/dL (8.4-10.2); Creatinine 1 1.07 mg/dL (0.52-1.04); Potassium 4.4 mmol/L (3.5-5.1); Total Protein 5.7 g/dL (6.3-8.2)
[2018-06-26 05:57] LABS: Lymphocytes 5 % (24-44); Monocyte 1 % (0.0-12.0); Neutrophils 94 % (36.0-66.0); Platelet Estimate NORMAL (NORMAL); Total Cells Counted 100
[2018-06-26] MEDS: Sodium Chloride 0.9% 1000 ML 1,000 ML IV SCH ×3 (09:16→21:28)
[2018-06-26] MEDS: Zofran 4 MG/2 ML VIAL IV PRN (09:39)
[2018-06-26] MEDS: ENOXAPARIN SODIUM SQ SCH (09:40)
[2018-06-26] MEDS: Xifaxan 200 MG PO SCH ×3 (09:40→20:58)
[2018-06-26] MEDS: Lopressor 50 MG PO SCH ×2 (09:40→20:58)
[2018-06-26] MEDS: SYNTHROID 25 MCG PO SCH (09:40)
[2018-06-26] MEDS ORDERED: Golytely Solution 4000 ML PO ONE (14:00)
[2018-06-27 05:40] LABS: Hemoglobin 9.2 gm/dl (12.0-16.0); Mean Cell Volume 89.8 fl (78-100); Mean Corpuscular Hgb Concent. 31.7 g/dl (32-36); Mean Platelet Volume 11.3 fl (6-9.5); Platelet Count 291 K/mm3 (150-450); Red Blood Count 3.23 M/mm3 (4.1-5.4); Red Cell Distribution Width 14.3 % (11.5-14.0); White Blood Count 15.1 K/mm3 (4.0-10.5)
[2018-06-27 05:54] LABS: Mean Corpuscular Hemoglobin 28.4 pg (26-32)
[2018-06-27 06:00] LABS: ANION GAP 12.8 MEQ/L (5-15); BILIRUBIN,TOTAL 0.4 mg/dL (0.2-1.3); Calcium 8.2 mg/dL (8.4-10.2); Creatinine 1 1.04 mg/dL (0.52-1.04); Potassium 3.7 mmol/L (3.5-5.1); Total Protein 5.5 g/dL (6.3-8.2)
[2018-06-27] MEDS: FLAGYL 500 MG IVPB 250 MG/50 ML BAG IV SCH ×3 (06:09→17:33)
[2018-06-27] MEDS: solu-MEDROL 125 MG IV SCH ×3 (06:09→21:14)
[2018-06-27 06:39] LABS: BAND 1 % (0.0-2.0); Lymphocytes 11 % (24-44); Monocyte 2 % (0.0-12.0); Neutrophils 86 % (36.0-66.0); Total Cells Counted 100
[2018-06-27 06:41] LABS: ANISOCYTOSIS 1+; Platelet Estimate NORMAL (NORMAL); Poikilocytosis 1+
[2018-06-27] MEDS: Levofloxacin 500MG/100ML D5W 500 MG/100 ML BAG IV SCH (08:22)
[2018-06-27] MEDS: Lopressor 50 MG PO SCH ×2 (09:28→21:14)
[2018-06-27] MEDS: SYNTHROID 25 MCG PO SCH (09:29)
[2018-06-27] MEDS: ENOXAPARIN SODIUM SQ SCH (09:29)
[2018-06-27] MEDS ORDERED: Golytely Solution 4000 ML PO ONE (10:00)
[2018-06-27] MEDS: Xifaxan 200 MG PO SCH ×3 (10:21→22:18)
[2018-06-27] MEDS: Sodium Chloride 0.9% 1000 ML 1,000 ML IV SCH ×2 (11:45→23:04)
[2018-06-27] MEDS: Zofran 4 MG/2 ML VIAL IV PRN (17:32)
[2018-06-27] MEDS: Phenergan 25 MG INJ IV PRN (19:58)
[2018-06-28] MEDS: FLAGYL 500 MG IVPB 250 MG/50 ML BAG IV SCH ×4 (00:06→17:14)
[2018-06-28] MEDS: Phenergan 25 MG INJ IV PRN (01:13)
[2018-06-28] MEDS ORDERED: Pepcid 20 MG ONE (05:58)
[2018-06-28] MEDS: solu-MEDROL 125 MG IV SCH (06:05)
[2018-06-28] MEDS: Lactated Ringers 1,000 ML IV SCH (06:08)
[2018-06-28] MEDS ORDERED: Pepcid 20 MG VIAL IV ONE (07:00)
[2018-06-28] MEDS ORDERED: Transderm Scop 1.5MG Patch TOP PRN (07:00)
[2018-06-28] MEDS ORDERED: Reglan 10 MG/2 ML IV ONE (07:00)
[2018-06-28 07:03] LABS: Hematocrit 30.6 % (35-47); Hemoglobin 9.7 gm/dl (12.0-16.0); Mean Cell Volume 89.5 fl (78-100); Mean Corpuscular Hgb Concent. 31.7 g/dl (32-36); Mean Platelet Volume 10.9 fl (6-9.5); Platelet Count 322 K/mm3 (150-450); Red Blood Count 3.42 M/mm3 (4.1-5.4); Red Cell Distribution Width 14.5 % (11.5-14.0); White Blood Count 14.2 K/mm3 (4.0-10.5)
[2018-06-28 07:05] LABS: Mean Corpuscular Hemoglobin 28.3 pg (26-32)
[2018-06-28 07:24] LABS: ANISOCYTOSIS 1+; BAND 8 % (0.0-2.0); Lymphocytes 5 % (24-44); Monocyte 2 % (0.0-12.0); Myelocyte 1 %; Neutrophils 84 % (36.0-66.0); Nucleated Red Blood Cell 1 %; Platelet Estimate NORMAL (NORMAL); Polychromasia RARE; Total Cells Counted 100
[2018-06-28 07:25] LABS: Granulocyte Absolute (ANC) 13.08 (1.4-6.9)
[2018-06-28] MEDS: Zosyn 2.25 GM 2.25 GM in D5w 100ML Mini Bag 100 ML 100 ML IV SCH ×3 (09:23→21:57)
--- NOTE | 2018-06-28 09:27 | XRAY ---
Indication: Possible aspiration. Comparison: December 05, 2017. Portable chest demonstrates new small bibasilar effusions with adjacent infiltrates versus atelectasis. Upper lungs clear. Heart is not enlarged for AP portable technique with stable left-sided dual-lead pacemaker. Bony thorax intact again with mild osteopenia and old proximal right humeral fracture. Impression: New bibasilar infiltrates/atelectasis/effusions without cardiomegaly.
[2018-06-28] MEDS: ENOXAPARIN SODIUM SQ SCH (09:31)
[2018-06-28] MEDS: Ditropan XL 5 MG PO SCH (09:31)
[2018-06-28] MEDS: Lopressor 50 MG PO SCH ×2 (09:32→21:57)
[2018-06-28] MEDS: Acidophilus TABLET PO SCH (09:32)
[2018-06-28] MEDS: Protonix 40MG Tablet PO SCH (09:32)
[2018-06-28] MEDS: Patanol 1% OPHTHALMIC OP SCH (09:33)
[2018-06-28] MEDS: Xifaxan 200 MG PO SCH ×3 (09:35→21:58)
[2018-06-28] MEDS: SYNTHROID 25 MCG PO SCH (09:35)
--- NOTE | 2018-06-28 09:39 | OP ---
SURGERY DATE/TIME: 06/28/2018 0756 PREOPERATIVE DIAGNOSIS: Colitis, abnormal CT scan. POSTOPERATIVE DIAGNOSIS: Mass in the cecum and right-sided colitis. PROCEDURE: Colonoscopy with cold forceps biopsy. SURGEON: Dr. Newton. ANESTHESIA: MAC. Medications given by anesthesia department. HISTORY: The patient is an 87 year-old white female who has been having problems intermittently with abdominal pain, nausea, vomiting and diarrhea. She was initially seen approximately ten days ago when she began having this problem and she was admitted to the hospital for fluids and got better within a day and was able to eat and sent back home. She represented again two to three days later with the same problem also likewise resolving within 24 hours and sent home. Then the third time she presented again and CT scan was now showing some stranding on the right side and thickening of the colon on the right side which prompted us to feel that she needed a colonoscopic evaluation. The patient and her family were described the risks of the procedure including the risk of perforation, phlebitis, untoward reaction to medication, bleeding and missed lesions. The patient verbalized her understanding and desired to have the procedure performed. DESCRIPTION OF PROCEDURE: The patient was given the medications by the anesthesia department. She had continuous pulse oximetry, ECG monitoring, intermittent blood pressure monitoring and tidal CO2 monitoring during the examination. She was placed in the left lateral decubitus position. A digital rectal examination was performed and revealed normal anal sphincter tone and no masses. The flexible Olympus pediatric colonoscope was used to intubate the rectum. A view of the colon was developed sequentially to the cecum where there was noted to be a villous appearing mass completely around the cecum and including the ileocecal valve. There was also noted what appeared to be colitis to the right side ascending colon. Biopsies were obtained in the mass area to rule out potential neoplastic change which is likely to be present. The scope was removed from the patient after this who tolerated the procedure and was sent back to the hospital [facility] in stable condition. The prep was noted to be poor with fair amounts of stool throughout the left colon but adequate for visualization.
[2018-06-28] MEDS ORDERED: NON-FORMULARY ITEM (Bacillus Coagulans [Probiotic] 1 EACH) PO SCH (10:00)
[2018-06-28] MEDS ORDERED: PLAVIX 75 MG Tablet PO SCH (10:00)
[2018-06-28 10:33] LABS: ANION GAP 11.4 MEQ/L (5-15); Calcium 8.3 mg/dL (8.4-10.2); Creatinine 1 1.17 mg/dL (0.52-1.04); Potassium 3.3 mmol/L (3.5-5.1)
[2018-06-28] MEDS: Zofran 4 MG/2 ML VIAL IV PRN (13:15)
[2018-06-28] MEDS ORDERED: DIPRIVAN 200 MG/20 ML IV ONE (16:22)
[2018-06-29] MEDS: FLAGYL 500 MG IVPB 250 MG/50 ML BAG IV SCH ×2 (00:18→06:22)
[2018-06-29] MEDS: Sodium Chloride 0.9% 1000 ML 1,000 ML IV SCH (00:20)
[2018-06-29 03:55] LABS: ABO TYPING A; Antibody Screen NEGATIVE (NEGATIVE); RH TYPING POSITIVE
[2018-06-29] MEDS: Zosyn 2.25 GM 2.25 GM in D5w 100ML Mini Bag 100 ML 100 ML IV SCH ×4 (04:01→20:59)
[2018-06-29] MEDS: Lactated Ringers 1,000 ML IV SCH ×3 (06:22→23:51)
[2018-06-29] MEDS ORDERED: MEFOXIN 2 GM PREMIX** 2 GM/50 ML ML IV ONE (07:19)
--- NOTE | 2018-06-29 07:57 | PCM.NOTE ---
Date and Time: 06/29/18 0754 Subjective Assessment: Pt is feeling anxious this morning, "I can't believe this is happening." Supposed to have surgery today. Does not have any complaints. - Review of Systems Constitutional: No Fever Abdominal/Gastrointestinal: No Vomiting Objective Exam General Appearance: no apparent distress, alert Neurologic Exam: oriented x 3, cooperative Skin Exam: normal color, warm, dry, No rash Respiratory Exam: normal breath sounds, lungs clear, No crackles/rales, No rhonchi, No wheezing Cardiovascular Exam: regular rate/rhythm, normal heart sounds, No murmur Gastrointestinal/Abdomen Exam: soft, No normal bowel sounds (hypoactive but present), No tenderness, No distention, No mass, No guarding, No rebound Extremity Exam: No pedal edema, No swelling OBJECTIVE DATA Vital Signs: Vital Signs - 24 hr Temp Pulse Resp BP Pulse Ox 06/29/18 07:27 97.5 F 68 18 177/74 92 L 06/29/18 04:00 98.8 F 63 16 146/65 93 L 06/29/18 00:00 97.8 F 60 24 168/73 93 L 06/28/18 20:00 97.8 F 65 24 165/72 92 L 06/28/18 16:00 98.3 F 63 18 192/77 95 06/28/18 14:03 94 L 06/28/18 11:39 97.5 F 68 18 179/83 94 L 06/28/18 11:05 96 06/28/18 08:55 68 18 170/70 96 06/28/18 08:00 98 F 61 18 164/72 93 L Oxygen-Last 24 hours O2 Percentage 2 Liters = 28% O2 Percentage 2 Liters = 28% O2 Percentage 2 Liters = 28% O2 Percentage 2 Liters = 28% O2 Percentage 2 Liters = 28% O2 Percentage 4 Liters = 36% O2 Percentage 4 Liters = 36% O2 Percentage 4 Liters = 36% Oxygen Flowrate (L/min)-RT 2 Pain Assessment - Last Documented Pain Intensity 0 Pain Scale Used FLACC Intake and Output: Intake & Output 06/26/18 06/27/18 06/28/18 06/29/18 11:59 11:59 11:59 11:59 Intake Total 3554 5910 120 1453 Output Total 1200 1000 2350 1100 Balance 2354 4910 -2230 353 Weight 79 kg 79 kg 82.3 kg Lab Results: Lab Results-Last 24 Hours 06/28/18 06/29/18 Range/Units 06:42 02:25 Sodium 142 (137-145) mmol/L Potassium 3.3 L (3.5-5.1) mmol/L Chloride 106 (98-107) mmol/L Carbon Dioxide 28 (22-30) mmol/L Anion Gap 11.4 (5-15) MEQ/L BUN 27 H (7-17) mg/dL Creatinine 1.17 H (0.52-1.04) mg/dL Estimated GFR 46.6 ML/MIN Glucose 137 H (74-106) mg/dL Calcium 8.3 L (8.4-10.2) mg/dL ABO Group A Rh Factor POSITIVE Antibody Screen NEGATIVE (NEGATIVE) Radiology Exams: Radiology Procedures Category Date Time Status CHEST 1 VIEW (PORTABLE) Stat Exams 06/28/18 09:05 Completed Portable Chest [CHEST 1 VIEW (PORTABLE)] Routine Exams 06/29/18 08:00 Taken Multi-Disciplinary Progress Notes: Multi-Disciplinary Progress Notes 06/28/18 11:13 Respiratory Note by Mary Urbina PT'S O2 SAT ON ROOM AIR WHILE AT REST WAS 84-87%. PT WAS PLACED BACK ON 4LPM NASAL CANNULA. O2 SAT QUICKLY INCREASED TO 96%. NURSE AWARE. WILL WEAN OXYGEN ABLE. Initialized on 06/28/18 11:13 - END OF NOTE 06/28/18 10:45 (created 06/28/18 14:05) Case Management Note by Taylor Hernandez AWAIT SURGICAL CONSULT. PT HOPING THAT SHE WILL BE ABLE TO RETURN HOME TO HER INDEPENDENT LEVEL OF [facility], WITH [facility] FOR SUPPORT, AND MEALS ON WHEELS PRN. WILL CONTINUE TO FOLLOW FOR ALL DC NEEDS. Initialized on 06/28/18 14:05 - END OF NOTE Assessment/Plan (1) Mass of cecum Current Visit: Yes Status: Acute Assessment & Plan: She had a colonoscopy and is supposed to have surgery today. Labs are pending. Code(s): K63.9 - DISEASE OF INTESTINE, UNSPECIFIED (2) GERD (gastroesophageal reflux disease) Current Visit: No Status: Chronic Qualifiers: Esophagitis presence: without esophagitis Qualified Code(s): K21.9 - Gastro -esophageal reflux disease without esophagitis Code(s): K21.9 - GASTRO-ESOPHAGEAL REFLUX DISEASE WITHOUT ESOPHAGITIS (3) History of TIA (transient ischemic attack) Current Visit: Yes Status: Chronic Code(s): Z86.73 - PRSNL HX OF TIA (TIA), AND CEREB INFRC W/O RESID DEFICITS
[2018-06-29] MEDS ORDERED: MEFOXIN 2 GM PREMIX** 2 GM/50 ML ML IV SCH (08:00)
[2018-06-29] MEDS ORDERED: Magnesium 1 Gm / 100 Ml D5W*** 100 ML IV ONE (08:23)
[2018-06-29] MEDS ORDERED: PHARMACY DOSING REQUEST MC ONE (08:23)
[2018-06-29] MEDS ORDERED: Sodium Chloride 0.9% 250 ML 250 ML IV ONE (08:27)
[2018-06-29] MEDS ORDERED: Lactated Ringers 2,000 ML IV ONE (08:27)
[2018-06-29] MEDS ORDERED: AlbuRx 25% 50ML VIAL*** 50 ML IV ONE (08:27)
[2018-06-29] MEDS ORDERED: POTASSIUM CHLORIDE IV PRN (08:33)
[2018-06-29] MEDS ORDERED: SODIUM CHLORIDE 0.9% IV PRN (08:33)
[2018-06-29 09:11] LABS: A-aADO2 73; ABG HEMOGLOBIN 10.9; ABG POTASSIUM 2.7 (3.5-5.1); ARTERIAL BLD GAS O2 SATURATION 95.3 % (95-100); ARTERIAL BLOOD GAS BASE EXCESS 8.1 (-2.0-2.0); ARTERIAL BLOOD GAS FIO2 28 %; ARTERIAL BLOOD GAS PCO2 41 mmHg (35-45); ARTERIAL BLOOD GAS PO2 75 mmHg (75-100); CARBOXYHEMOGLOBIN 0.4 % THgb (0.0-6.9); HGB O2 SAT 94.3 g/dF (94-100); Methhemoglobin 0.7 % (1.4-1.5); paO2 pAO1 0.51
[2018-06-29 09:12] LABS: ABG SITE ALINE
--- NOTE | 2018-06-29 09:29 | XRAY ---
Indication: Follow-up bibasilar infiltrates/atelectasis/effusions. Comparison: One day earlier. Portable apical chest less inflated today with slightly diminished bibasilar infiltrates/atelectasis/effusions. Heart is not enlarged with slightly diminished vascular prominence and stable left dual-lead pacemaker. No new cardiopulmonary abnormalities. Comment: Preliminary interpretation was made by [facility]. No critical discrepancy.
[2018-06-29] MEDS ORDERED: Sodium Chloride 0.9% 500 ML IV ONE (09:32)
[2018-06-29] MEDS ORDERED: HEPARIN-NS 1,000 UNITS/500 ML IV ONE (09:32)
[2018-06-29] MEDS ORDERED: Pepcid 20 MG PO SCH (10:00)
[2018-06-29 11:08] LABS: A-aADO2 524; ABG HEMOGLOBIN 11.1; ABG POTASSIUM 3.4 (3.5-5.1); ABG SITE ALINE; ARTERIAL BLD GAS O2 SATURATION 97.2 % (95-100); ARTERIAL BLOOD GAS BASE EXCESS 5.5 (-2.0-2.0); ARTERIAL BLOOD GAS FIO2 100 %; ARTERIAL BLOOD GAS PCO2 37 mmHg (35-45); ARTERIAL BLOOD GAS PO2 143 mmHg (75-100); CARBOXYHEMOGLOBIN 0.4 % THgb (0.0-6.9); HCO3- 28.9 (22-28); HGB O2 SAT 96.5 g/dF (94-100); Methhemoglobin 0.3 % (1.4-1.5); paO2 pAO1 0.21
[2018-06-29] MEDS ORDERED: SUBLIMAZE 100 MCG/2 ML ONE (12:30)
[2018-06-29 13:07] LABS: ALBUMIN 2.9 g/dL (3.5-5.0); ANION GAP 12.6 MEQ/L (5-15); BILIRUBIN,TOTAL 0.8 mg/dL (0.2-1.3); Calcium 7.9 mg/dL (8.4-10.2); Creatinine 1 1.14 mg/dL (0.52-1.04); Potassium 3.3 mmol/L (3.5-5.1); Total Protein 4.9 g/dL (6.3-8.2)
[2018-06-29] MEDS ORDERED: TYLENOL 325 MG PO PRN (13:15)
[2018-06-29] MEDS ORDERED: FEVERALL 650 MG RC PRN (13:15)
[2018-06-29] MEDS: Patanol 1% OPHTHALMIC OP SCH (13:22)
[2018-06-29] MEDS: SYNTHROID 25 MCG PO SCH (13:22)
[2018-06-29 14:36] LABS: Hematocrit 35.5 % (35-47); Hemoglobin 11.4 gm/dl (12.0-16.0); Mean Cell Volume 90.6 fl (78-100); Mean Corpuscular Hgb Concent. 32.1 g/dl (32-36); Mean Platelet Volume 11.5 fl (6-9.5); Platelet Count 367 K/mm3 (150-450); Red Blood Count 3.92 M/mm3 (4.1-5.4); Red Cell Distribution Width 14.5 % (11.5-14.0)
[2018-06-29 15:01] LABS: White Blood Count 37.3 K/mm3 (4.0-10.5)
[2018-06-29 15:08] LABS: Appearance CLEAR (CLEAR); Bacteria RARE /HPF (NEGATIVE); Bilirubin NEGATIVE (NEGATIVE); Blood NEGATIVE Ery/ul (0-5); Glucose NEGATIVE (NEGATIVE); Ketones NEGATIVE (NEGATIVE); Leukocyte Esterase TRACE (NEGATIVE); Nitrite NEGATIVE (NEGATIVE); Protein,Urine Dip NEGATIVE (Negative); RBC 0-2 /HPF (0-2); Specific Gravity 1.006 (1.005-1.025); Urobilinogen NEGATIVE mg/dL (0-1)
[2018-06-29 15:58] LABS: ANISOCYTOSIS 1+; BAND 3 % (0.0-2.0); Hypersegmented Polys 2+; Lymphocytes 3 % (24-44); Metamyelocyte 1 %; Monocyte 2 % (0.0-12.0); Neutrophils 91 % (36.0-66.0); Nucleated Red Blood Cell 1 %; Platelet Estimate NORMAL (NORMAL); Poikilocytosis 1+; Polychromasia 1+; Total Cells Counted 100
[2018-06-29] MEDS: LOPRESSOR 5 MG/5 ML INJECTION IV SCH ×2 (17:16→18:00)
[2018-06-29] MEDS: ENOXAPARIN SODIUM SQ SCH (18:50)
[2018-06-30] MEDS: MORPHINE SULFATE 2 MG INJ IV PRN ×3 (01:46→16:34)
[2018-06-30] MEDS: LOPRESSOR 5 MG/5 ML INJECTION IV SCH ×5 (01:50→18:15)
[2018-06-30] MEDS: Zosyn 2.25 GM 2.25 GM in D5w 100ML Mini Bag 100 ML 100 ML IV SCH ×2 (03:00→08:57)
[2018-06-30] MEDS ORDERED: MORPHINE SULFATE 10 MG/ML IV ONE (04:47)
[2018-06-30 06:02] LABS: Hematocrit 29.7 % (35-47); Hemoglobin 9.6 gm/dl (12.0-16.0); Mean Cell Volume 88.9 fl (78-100); Mean Corpuscular Hemoglobin 28.7 pg (26-32); Mean Corpuscular Hgb Concent. 32.3 g/dl (32-36); Mean Platelet Volume 11.1 fl (6-9.5); Platelet Count 273 K/mm3 (150-450); Red Blood Count 3.34 M/mm3 (4.1-5.4); Red Cell Distribution Width 14.2 % (11.5-14.0); White Blood Count 17.3 K/mm3 (4.0-10.5)
[2018-06-30 06:28] LABS: ALBUMIN 2.4 g/dL (3.5-5.0); ANION GAP 9.9 MEQ/L (5-15); BILIRUBIN,TOTAL 0.7 mg/dL (0.2-1.3); Calcium 7.9 mg/dL (8.4-10.2); Creatinine 1 1.39 mg/dL (0.52-1.04); Potassium 3.1 mmol/L (3.5-5.1); Total Protein 4.4 g/dL (6.3-8.2)
[2018-06-30 08:29] LABS: ANISOCYTOSIS 1+; Hypersegmented Polys 2+; Lymphocytes 8 % (24-44); Monocyte 8 % (0.0-12.0); Neutrophils 84 % (36.0-66.0); Platelet Estimate NORMAL (NORMAL); Poikilocytosis 1+; Polychromasia 1+; Total Cells Counted 100
[2018-06-30] MEDS: Lactated Ringers 1,000 ML IV SCH (08:54)
[2018-06-30] MEDS: Patanol 1% OPHTHALMIC OP SCH (10:59)
--- NOTE | 2018-06-30 12:56 | PCM.NOTE ---
Date and Time: 06/30/18 1251 Subjective Assessment: Pt had pain overnight and received one extra dose of IV morphine. No complaints of pain since then. she says if she lays still she is not having pain. Was up at bedside x 3 but this exhausted her. Only 300mL of urine out overnight. Small amount of output from NG tube. JUNAID drain in place; was emptied frequently yesterday. WBC 37,000 yesterday; called to surgery. Not on antibiotics. IVF decreased from 125/hr to 75mL/hr per surgery. Objective Exam General Appearance: no apparent distress, other (eyes closed but opens eyes and responds with a few words to questions.) Neurologic Exam: cooperative, other (weak voice and musculature) Skin Exam: normal color, warm, dry, No rash Respiratory Exam: normal breath sounds, lungs clear, No crackles/rales, No rhonchi, No wheezing Cardiovascular Exam: regular rate/rhythm, normal heart sounds, No murmur Extremity Exam: other (SCDs in place), No pedal edema, No swelling Back Exam: normal inspection, No rash OBJECTIVE DATA Vital Signs: Vital Signs - 24 hr Temp Pulse Resp BP BP Pulse Ox 06/30/18 12:02 69 18 95 06/30/18 11:00 97.8 F 73 19 111/43 97 06/30/18 10:00 60 133/47 06/30/18 08:00 65 107/48 06/30/18 07:13 97.5 F 78 20 123/55 99 06/30/18 06:05 62 110/50 110/50 06/30/18 04:00 98.6 F 70 21 157/64 157/64 99 06/30/18 00:00 99.1 F 71 18 143/64 143/64 94 L 06/29/18 23:05 66 18 94 L 06/29/18 20:04 98.8 F 76 16 144/63 97 06/29/18 20:00 76 144/63 06/29/18 18:01 98.8 F 73 25 H 89/66 98 06/29/18 17:00 98.8 F 64 19 149/70 98 06/29/18 15:23 71 98 06/29/18 13:50 99.5 F 65 17 143/63 99 06/29/18 13:32 60 19 127/55 96 06/29/18 12:57 99.9 F 71 16 144/64 99 Oxygen-Last 24 hours O2 Percentage 2 Liters = 28% O2 Percentage 2 Liters = 28% O2 Percentage 2 Liters = 28% O2 Percentage 2 Liters = 28% O2 Percentage 2 Liters = 28% O2 Percentage 2 Liters = 28% Oxygen Flowrate (L/min)-RT 2 Oxygen Flowrate (L/min)-RT 4 Oxygen Flowrate (L/min)-RT 8 Pain Assessment - Last Documented Pain Intensity 0 Pain Scale Used 0-10 Pain Scale Intake and Output: Intake & Output 06/28/18 06/29/18 06/30/18 07/01/18 11:59 11:59 11:59 11:59 Intake Total 120 1453 2139 Output Total 2350 1100 1100 Balance -2230 353 1039 Weight 82.3 kg 81.6 kg Lab Results: Lab Results-Last 24 Hours 06/29/18 06/29/18 06/29/18 Range/Units 09:31 12:30 12:30 WBC 37.3 H* (4.0-10.5) K/mm3 RBC 3.92 L (4.1-5.4) M/mm3 Hgb 11.4 L (12.0-16.0) gm/dl Hct 35.5 (35-47) % MCV 90.6 (78-100) fl MCH 29.0 (26-32) pg MCHC 32.1 (32-36) g/dl RDW 14.5 H (11.5-14.0) % Plt Count 367 (150-450) K/mm3 MPV 11.5 H (6-9.5) fl Segmented Neutrophils 91 H (36.0-66.0) % Band Neutrophils 3 H (0.0-2.0) % Lymphocytes (Manual) 3 L (24-44) % Monocytes (Manual) 2 (0.0-12.0) % Metamyelocytes 1 % Nucleated RBCs 1 % Hypersegmented Polys 2+ Platelet Estimate NORMAL (NORMAL) RBC Morphology Polychromasia 1+ Poikilocytosis 1+ Anisocytosis 1+ Sodium 137 (137-145) mmol/L Potassium 3.3 L (3.5-5.1) mmol/L Chloride 101 (98-107) mmol/L Carbon Dioxide 27 (22-30) mmol/L Anion Gap 12.6 (5-15) MEQ/L BUN 21 H (7-17) mg/dL Creatinine 1.14 H (0.52-1.04) mg/dL Estimated GFR 48.0 ML/MIN Glucose 168 H (74-106) mg/dL Calcium 7.9 L (8.4-10.2) mg/dL Total Bilirubin 0.80 (0.2-1.3) mg/dL AST 34 (14-36) U/L ALT 22 (0-35) U/L Alkaline Phosphatase 57 (38-126) U/L Serum Total Protein 4.9 L (6.3-8.2) g/dL Albumin 2.9 L (3.5-5.0) g/dL Urine Color STRAW (YELLOW) Urine Appearance CLEAR (CLEAR) Urine pH 7.0 (5-6) Ur Specific Graham 1.006 (1.005-1.025) Urine Protein NEGATIVE (Negative) Urine Ketones NEGATIVE (NEGATIVE) Urine Blood NEGATIVE (0-5) Oscar/ul Urine Nitrite NEGATIVE (NEGATIVE) Urine Bilirubin NEGATIVE (NEGATIVE) Urine Urobilinogen NEGATIVE (0-1) mg/dL Ur Leukocyte Esterase TRACE (NEGATIVE) Urine WBC (Auto) NONE (0-5) /HPF Urine RBC (Auto) 0-2 (0-2) /HPF U Epithel Cells (Auto) NONE (FEW) /HPF Urine Bacteria (Auto) RARE (NEGATIVE) /HPF Urine Glucose NEGATIVE (NEGATIVE) mg/dL 06/29/18 06/30/18 06/30/18 Range/Units 15:50 05:10 05:10 WBC 17.3 H (4.0-10.5) K/mm3 RBC 3.34 L (4.1-5.4) M/mm3 Hgb 9.6 L (12.0-16.0) gm/dl Hct 29.7 L (35-47) % MCV 88.9 (78-100) fl MCH 28.7 (26-32) pg MCHC 32.3 (32-36) g/dl RDW 14.2 H (11.5-14.0) % Plt Count 273 (150-450) K/mm3 MPV 11.1 H (6-9.5) fl Segmented Neutrophils 84 H (36.0-66.0) % Band Neutrophils (0.0-2.0) % Lymphocytes (Manual) 8 L (24-44) % Monocytes (Manual) 8 (0.0-12.0) % Metamyelocytes % Nucleated RBCs % Hypersegmented Polys 2+ Platelet Estimate NORMAL (NORMAL) RBC Morphology ABNORMAL Polychromasia 1+ Poikilocytosis 1+ Anisocytosis 1+ Sodium 136 L (137-145) mmol/L Potassium 4.0 D 3.1 L D (3.5-5.1) mmol/L Chloride 101 (98-107) mmol/L Carbon Dioxide 28 (22-30) mmol/L Anion Gap 9.9 (5-15) MEQ/L BUN 25 H (7-17) mg/dL Creatinine 1.39 H (0.52-1.04) mg/dL Estimated GFR 38.2 ML/MIN Glucose 163 H (74-106) mg/dL Calcium 7.9 L (8.4-10.2) mg/dL Total Bilirubin 0.70 (0.2-1.3) mg/dL AST 21 (14-36) U/L ALT 19 (0-35) U/L Alkaline Phosphatase 43 (38-126) U/L Serum Total Protein 4.4 L (6.3-8.2) g/dL Albumin 2.4 L (3.5-5.0) g/dL Urine Color (YELLOW) Urine Appearance (CLEAR) Urine pH (5-6) Ur Specific Graham (1.005-1.025) Urine Protein (Negative) Urine Ketones (NEGATIVE) Urine Blood (0-5) Oscar/ul Urine Nitrite (NEGATIVE) Urine Bilirubin (NEGATIVE) Urine Urobilinogen (0-1) mg/dL Ur Leukocyte Esterase (NEGATIVE) Urine WBC (Auto) (0-5) /HPF Urine RBC (Auto) (0-2) /HPF U Epithel Cells (Auto) (FEW) /HPF Urine Bacteria (Auto) (NEGATIVE) /HPF Urine Glucose (NEGATIVE) mg/dL Radiology Exams: Radiology Procedures Category Date Time Status Portable Chest [CHEST 1 VIEW (PORTABLE)] Routine Exams 06/29/18 08:00 Completed Multi-Disciplinary Progress Notes: Multi-Disciplinary Progress Notes 06/30/18 00:07 Respiratory Note by Haroldo Michaels I HAVE CHECKED ON THIS PT A COUPLE TIMES THIS MABEL AND SHE STILL CONTINUES TO BE VERY DROWSY AND UNABLE TO BE SHOWN HOW TO DO THE I.S. ASKED NURSING TO INFORM ME IF PT WAKES ENOUGH AT SOME POINT AND SEEMS ABLE TO START INSTRUCTION WITH IT. Initialized on 06/30/18 00:07 - END OF NOTE Assessment/Plan (1) Status post colon resection Current Visit: Yes Status: Acute Assessment & Plan: POD #1. Overall she is doing well. Mildly hypokalemic today; on LR. Will recheck in the morning. Some concern with low urine output - renal function is down today from previous (eGFR was 48 yesterday, is 38.2 today). Recheck in a.m. Pain control is good overall. She is weak, but is unsurprising given her age. Code(s): Z90.49 - ACQUIRED ABSENCE OF OTHER SPECIFIED PARTS OF DIGESTIVE TRACT (2) GERD (gastroesophageal reflux disease) Current Visit: No Status: Chronic Qualifiers: Esophagitis presence: without esophagitis Qualified Code(s): K21.9 - Gastro -esophageal reflux disease without esophagitis Code(s): K21.9 - GASTRO-ESOPHAGEAL REFLUX DISEASE WITHOUT ESOPHAGITIS (3) History of TIA (transient ischemic attack) Current Visit: Yes Status: Chronic Code(s): Z86.73 - PRSNL HX OF TIA (TIA), AND CEREB INFRC W/O RESID DEFICITS
[2018-06-30] MEDS: SYNTHROID 25 MCG PO SCH (14:04)
[2018-06-30] MEDS: ENOXAPARIN SODIUM SQ SCH (18:19)
[2018-07-01] MEDS: Lactated Ringers 1,000 ML IV SCH ×4 (00:39→17:17)
[2018-07-01] MEDS: LOPRESSOR 5 MG/5 ML INJECTION IV SCH ×4 (00:52→18:40)
[2018-07-01] MEDS: Sodium Chloride 0.9% 1000 ML 1,000 ML IV SCH (07:15)
[2018-07-01] MEDS: MORPHINE SULFATE 2 MG INJ IV PRN ×6 (07:21→19:51)
[2018-07-01] MEDS: Ditropan XL 5 MG PO SCH (08:10)
[2018-07-01] MEDS: Acidophilus TABLET PO SCH (08:10)
[2018-07-01] MEDS: Lopressor 50 MG PO SCH (08:10)
[2018-07-01] MEDS: Protonix 40MG Tablet PO SCH (08:10)
[2018-07-01] MEDS: Xifaxan 200 MG PO SCH (08:10)
[2018-07-01] MEDS: ENOXAPARIN SODIUM SQ SCH ×2 (08:10→17:16)
[2018-07-01] MEDS: FLAGYL 500 MG IVPB 250 MG/50 ML BAG IV SCH (08:11)
[2018-07-01 08:16] LABS: Basophil (Absolute #) 0 (0-0.4); Eosinophil % 0.7 % (0.00-5.0); Eosinophil (Absolute #) 0.08 (0-0.5); Granulocyte Absolute (ANC) 10.49 (1.4-6.9); Granulocytes % 86.5 % (36.0-66.0); Hematocrit 22.6 % (35-47); Hemoglobin 7.2 gm/dl (12.0-16.0); Lymphocyte (Absolute #) 0.73 (1.0-4.6); Mean Cell Volume 90.4 fl (78-100); Mean Corpuscular Hemoglobin 28.8 pg (26-32); Mean Corpuscular Hgb Concent. 31.9 g/dl (32-36); Mean Platelet Volume 11.1 fl (6-9.5); Monocyte (Absolute #) 0.83 (0.0-1.3); Monocytes % 6.8 % (0.0-12.0); Platelet Count 208 K/mm3 (150-450); Red Cell Distribution Width 14.3 % (11.5-14.0); White Blood Count 12.1 K/mm3 (4.0-10.5)
[2018-07-01 08:27] LABS: ALBUMIN 2.2 g/dL (3.5-5.0); ANION GAP 8.8 MEQ/L (5-15); BILIRUBIN,TOTAL 0.4 mg/dL (0.2-1.3); Calcium 7.7 mg/dL (8.4-10.2); Creatinine 1 0.97 mg/dL (0.52-1.04); Potassium 3.2 mmol/L (3.5-5.1); Total Protein 4.2 g/dL (6.3-8.2)
[2018-07-01] MEDS: SYNTHROID 25 MCG PO SCH (09:14)
[2018-07-01] MEDS: Patanol 1% OPHTHALMIC OP SCH (09:15)
--- NOTE | 2018-07-01 10:11 | CONS ---
CONSULT DATE: 06/29/2018 HISTORY: This patient presents with several weeks of nausea, vomiting and abdominal pain. She has been to the hospital multiple times. On this admission she underwent colonoscopy with Dr. Newton who found a large mass in the cecum that appeared to be obstructing the ileocecal valve. On recent CT scan she had findings of wall thickening in the cecum and right colon consistent with these endoscopic findings. The endoscopic findings are very concerning for obstructing colon cancer. REVIEW OF SYSTEMS: Negative except as noted in history of present illness. PAST MEDICAL HISTORY: Hypothyroid. Hypertension. Gastroesophageal reflux disease. PAST SURGICAL HISTORY: Cataracts. Hysterectomy. MEDICATIONS: Plavix, Synthroid, Pepcid, metoprolol, omeprazole. ALLERGIES: NKDA. SOCIAL HISTORY: No tobacco. FAMILY HISTORY: Noncontributory. LAB DATA AND TESTS: PHYSICAL EXAMINATION: GENERAL: No acute distress. HEENT: Sclera nonicteric. Extraocular movements intact. NECK: Supple. No JVD. CHEST: Nonlabored breathing. ABDOMEN: Soft, mildly distended, minimally tender. EXTREMITIES: No peripheral edema. NEURO: Awake, alert and oriented. PSYCH: Appropriate mood and affect. ASSESSMENT: Cecal mass with at least partial small bowel obstruction. PLAN: Plan for right hemicolectomy. The patient does have significant cardiac history with pacemaker and cardiology cleared her for surgery. The patient is aware of risks of surgery including surgical complications such as anastomotic leak or small chance of needing an ostomy as well medical complications such as cardiac issues. The patient would like to proceed with surgery.
--- NOTE | 2018-07-01 11:58 | OP ---
SURGERY DATE/TIME: 06/29/201817 PREOPERATIVE DIAGNOSIS: Right colon mass. POSTOPERATIVE DIAGNOSES: Large right colon mass with carcinomatosis, ascites, liver metastases. PROCEDURES: 1) Right hemicolectomy. 2) Partial omentectomy. 3) Excisional biopsy of peritoneal implant. SURGEON: Karl Davies M.D. ANESTHESIA: General. SPECIMENS: 1) Right hemicolectomy. 2) Omentum. 3) Peritoneal implant. ESTIMATED BLOOD LOSS: 30 cc. COMPLICATIONS: None. DRAINS: #10 JUNAID x1. FINDINGS: Very large right colon mass with bulky lymph node abscesses, peritoneal studding. Multiple liver metastases. PATIENT PRESENTATION: This patient presents with several weeks of nausea and vomiting. She underwent colonoscopy with Dr. Newton who found a large cecal mass. CT scan did show wall thickening of the cecum right colon. After discussing risks and benefits of surgery with the patient and her daughters, they all elected to proceed with surgery. DESCRIPTION OF PROCEDURE: The patient was brought to the operating room, placed supine on OR table, placed under general anesthesia. The abdomen was prepped and draped in sterile fashion. A generous midline laparotomy was performed using her prior lower midline incision as well as extending generously above the umbilicus this was taken down to the fascia with electrocautery. The fascia was incised. The peritoneum was incised with scalpel. The abdomen entered without injury and then further opened under direct vision with electrocautery. There were copious ascites which was suctioned out. There were several peritoneal implants on the peritoneum and the abdominal wall. There also appeared to be some studding in the pelvis. There appeared to nodules on the liver on both sides consistent with liver metastases. The right colon tumor was very bulky and had obvious lymph node metastases extending down into the lymph node basin. The omentum had either calcifications or metastatic studding and omentum over the transverse colon was excised with LigaSure removing most of her omentum. A window was then created in the mesentery of transverse colon and colon transected with [id number] green JACKELINE stapler. A window was created in the terminal ileum mesentery and transected with [id number] blue JACKELINE stapler. The right colon was then mobilized with electrocautery along the white line and the right colon fully medialized. Dissection was then performed from the transverse colon up towards hepatic flexure with LigaSure taking it down to the hepatic flexure attachment and fully medializing the hepatic flexure. Once the colon was fully medialized and care taken to avoid the duodenum, the mesentery was transected with LigaSure taking the mesentery down below the bulky lymph node metastases and the specimen was handed off. Peritoneal implant was removed from the right side of the anterior abdomen. The corners of the staple lines were removed and a 75 blue JACKELINE stapler inserted and the bowel connected on the anterior mesenteric border. The staple line was hemostatic. Suction introduced and the small bowel was decompressed. There was minimal spillage. The enterotomies were lifted up with Yeny clamps and a green contour stapler was used to close the enterotomy defects completing the [id number] anastomosis. The mesenteric defect was then closed with running 3-0 PDS suture several reinforcing stitches were placed in the anastomosis staple line for hemostasis and reinforcement with 3-0 PDS sutures. A cross stitch was placed. The abdomen was then copiously irrigated and suctioned dry. NG tube position intact. The abdomen was then closed with 0 looped PDS suture from inferiorly and superiorly along with sutures in the middle. The wound was irrigated. Skin loosely closed with leonard with placement of Iodoform faith placed between. Of note before closing the belly a 10 JUNAID drain was placed in the right lower quadrant and down into the pelvis for collection of likely malignant ascites. Dressing was applied. Drain was sutured in place. The patient was recovered in PACU in stable condition.
[2018-07-01] MEDS ORDERED: Zemuron 100 MG/10 ML IV ONE (14:54)
[2018-07-01] MEDS ORDERED: PHENYLEPHRINE HCL IV ONE (14:54)
[2018-07-01] MEDS ORDERED: Quelicin Fliptop 200 MG/10 ML IV ONE (14:54)
[2018-07-01] MEDS ORDERED: LOPRESSOR 5 MG/5 ML INJECTION IV ONE (14:54)
[2018-07-01] MEDS ORDERED: LIDOCAINE HCL 2% 100 MG/5 ML IJ ONE (14:54)
[2018-07-01] MEDS ORDERED: Decadron 4 MG INJ IV ONE (14:54)
[2018-07-01] MEDS ORDERED: BRIDION 200MG/2ML IV ONE (14:54)
[2018-07-01] MEDS ORDERED: DIPRIVAN 200 MG/20 ML IV ONE (14:54)
[2018-07-01] MEDS ORDERED: Zofran 4 MG/2 ML VIAL IV ONE (14:54)
[2018-07-02] MEDS: LOPRESSOR 5 MG/5 ML INJECTION IV SCH ×2 (01:08→06:01)
[2018-07-02] MEDS: MORPHINE SULFATE 2 MG INJ IV PRN ×2 (01:08→08:42)
[2018-07-02] MEDS: Lactated Ringers 1,000 ML IV SCH (02:25)
[2018-07-02 05:50] LABS: Hematocrit 21.8 % (35-47); Mean Cell Volume 91.6 fl (78-100); Mean Corpuscular Hgb Concent. 31.7 g/dl (32-36); Mean Platelet Volume 10.3 fl (6-9.5); Platelet Count 205 K/mm3 (150-450); Red Blood Count 2.38 M/mm3 (4.1-5.4); Red Cell Distribution Width 14.4 % (11.5-14.0); White Blood Count 8.3 K/mm3 (4.0-10.5)
[2018-07-02 06:19] LABS: Mean Corpuscular Hemoglobin 28.9 pg (26-32)
[2018-07-02 06:20] LABS: Hemoglobin 6.9 gm/dl (12.0-16.0)
[2018-07-02 06:23] LABS: ALBUMIN 2.4 g/dL (3.5-5.0); ALKALINE PHOSPHATASE 44 U/L (38-126); ANION GAP 9.7 MEQ/L (5-15); BLOOD UREA NITROGEN 15 mg/dL (7-17); CHLORIDE 96 mmol/L (98-107); Calcium 7.7 mg/dL (8.4-10.2); Carbon Dioxide 32 mmol/L (22-30); Creatinine 1 0.86 mg/dL (0.52-1.04); Glucose 104 mg/dL (74-106); Potassium 3.3 mmol/L (3.5-5.1); SGOT/AST 17 U/L (14-36); SGPT/ALT 16 U/L (0-35); SODIUM 134 mmol/L (137-145); Total Protein 4.5 g/dL (6.3-8.2)
[2018-07-02 06:24] LABS: Lymphocytes 1 % (24-44); Monocyte 2 % (0.0-12.0); Neutrophils 97 % (36.0-66.0); Total Cells Counted 100
[2018-07-02 06:25] LABS: ANISOCYTOSIS 1+; Poikilocytosis 1+
[2018-07-02 06:26] LABS: Platelet Estimate NORMAL (NORMAL)
[2018-07-02] MEDS ORDERED: Sodium Chloride 0.9% 500 ML 500 ML IV SCH (07:30)
[2018-07-02] MEDS ORDERED: SUBLIMAZE 250 MCG/5 ML IV ONE (08:49)
[2018-07-02] MEDS ORDERED: Versed 2 MG/2 ML Injection IV ONE (08:49)
[2018-07-02] MEDS: Patanol 1% OPHTHALMIC OP SCH (09:05)
[2018-07-02] MEDS: SYNTHROID 25 MCG PO SCH (09:05)
[2018-07-02 09:06] LABS: ABO TYPING A; Antibody Screen NEGATIVE (NEGATIVE); RH TYPING POSITIVE
[2018-07-02 09:08] LABS: CROSS MATCH (PRBC) COMPATIBLE (COMPATIBLE)
[2018-07-02] MEDS: PROTONIX 40 MG IV IV SCH (09:19)
--- NOTE | 2018-07-02 09:28 | XRAY ---
Indication: Cough. Comparison: June 29, 2018. AP/lateral chest obtained using portable technique demonstrates grossly stable bibasilar infiltrates/atelectasis/effusions. Upper lungs clear. Heart is not enlarged again with left-sided dual-lead pacemaker. No new cardiopulmonary abnormalities.
[2018-07-02] MEDS ORDERED: PHARMACY DOSING REQUEST MC ONE (09:57)
[2018-07-02] MEDS: Lopressor 50 MG PO SCH ×2 (10:05→21:15)
[2018-07-02] MEDS: Acidophilus TABLET PO SCH (10:05)
[2018-07-02] MEDS: Zosyn 3.375GM/100 Ml D5W 3.375 GM/100 ML IVPB IV SCH ×3 (11:59→23:42)
[2018-07-02] MEDS: D5W/0.45NS W/ 20mEq KCl 1000 ML 1,000 ML IV SCH (15:35)
[2018-07-02 16:09] LABS: Hematocrit 28.8 % (35-47); Hemoglobin 9.3 gm/dl (12.0-16.0)
[2018-07-02] MEDS: NORCO 5/325 MG PO PRN (18:08)
[2018-07-03] MEDS: D5W/0.45NS W/ 20mEq KCl 1000 ML 1,000 ML IV SCH (01:58)
[2018-07-03] MEDS: Zosyn 3.375GM/100 Ml D5W 3.375 GM/100 ML IVPB IV SCH ×3 (05:44→17:26)
[2018-07-03 06:26] LABS: ANION GAP 8.5 MEQ/L (5-15); BLOOD UREA NITROGEN 11 mg/dL (7-17); CHLORIDE 91 mmol/L (98-107); Calcium 7.7 mg/dL (8.4-10.2); Carbon Dioxide 34 mmol/L (22-30); Creatinine 1 0.94 mg/dL (0.52-1.04); Glucose 127 mg/dL (74-106); Potassium 3.4 mmol/L (3.5-5.1); SODIUM 130 mmol/L (137-145)
[2018-07-03 07:09] LABS: Hematocrit 31.3 % (35-47); Hemoglobin 10.2 gm/dl (12.0-16.0); Mean Cell Volume 89.4 fl (78-100); Mean Corpuscular Hemoglobin 29.1 pg (26-32); Mean Corpuscular Hgb Concent. 32.6 g/dl (32-36); Mean Platelet Volume 11.1 fl (6-9.5); Platelet Count 229 K/mm3 (150-450); White Blood Count 8.3 K/mm3 (4.0-10.5)
[2018-07-03 07:50] LABS: BAND 2 % (0.0-2.0); Eosinophil 3 % (0.00-3.0); Lymphocytes 6 % (24-44); Monocyte 8 % (0.0-12.0); Neutrophils 81 % (36.0-66.0); Platelet Estimate NORMAL (NORMAL); Total Cells Counted 100
[2018-07-03] MEDS: NORCO 5/325 MG PO PRN ×2 (08:19→17:21)
[2018-07-03] MEDS: PROTONIX 40 MG IV IV SCH (09:46)
[2018-07-03] MEDS: Lopressor 50 MG PO SCH ×2 (09:47→21:43)
[2018-07-03] MEDS: SYNTHROID 25 MCG PO SCH (09:47)
[2018-07-03] MEDS: Patanol 1% OPHTHALMIC OP SCH (09:47)
[2018-07-03] MEDS: Acidophilus TABLET PO SCH (09:47)
[2018-07-04] MEDS: Zosyn 3.375GM/100 Ml D5W 3.375 GM/100 ML IVPB IV SCH ×4 (00:49→17:59)
[2018-07-04 05:51] LABS: Hematocrit 32.1 % (35-47); Hemoglobin 10.5 gm/dl (12.0-16.0); Mean Cell Volume 89.7 fl (78-100); Mean Corpuscular Hemoglobin 29.3 pg (26-32); Mean Corpuscular Hgb Concent. 32.7 g/dl (32-36); Mean Platelet Volume 10.1 fl (6-9.5); Platelet Count 236 K/mm3 (150-450); Red Blood Count 3.58 M/mm3 (4.1-5.4); Red Cell Distribution Width 14.3 % (11.5-14.0); White Blood Count 7.4 K/mm3 (4.0-10.5)
[2018-07-04 06:07] LABS: ALBUMIN 2.8 g/dL (3.5-5.0); ANION GAP 11.6 MEQ/L (5-15); BILIRUBIN,TOTAL 0.8 mg/dL (0.2-1.3); Calcium 7.7 mg/dL (8.4-10.2); Creatinine 1 1.02 mg/dL (0.52-1.04); Total Protein 5.2 g/dL (6.3-8.2)
[2018-07-04] MEDS ORDERED: Sodium Chloride 0.9% 1000 ML 1,000 ML ONE (06:29)
[2018-07-04] MEDS: POTASSIUM CHLORIDE 20 mEq IN WATER 100ML 20 MEQ/100 ML BAG IV SCH ×2 (06:42→08:35)
[2018-07-04 07:53] LABS: BAND 3 % (0.0-2.0); Lymphocytes 14 % (24-44); Monocyte 4 % (0.0-12.0); Neutrophils 79 % (36.0-66.0); Platelet Estimate NORMAL (NORMAL); Total Cells Counted 100
[2018-07-04] MEDS ORDERED: Sodium Chloride 0.9% 1000 ML 1,000 ML IV SCH (09:00)
--- NOTE | 2018-07-04 09:14 | PCM.NOTE ---
Date and Time: 07/04/18908 Subjective Assessment: Patient reports she feels weak and tired. She denies any specific pain except pain in her abdomen when she coughs. She cannot describe the surgery that she had. She knows the plan is for her to go to [facility] for rehab. - Review of Systems Constitutional: Fatigue Eyes: No Symptoms Ears, Nose, & Throat: No Symptoms Respiratory: Cough, No Short Of Breath Cardiac: No Symptoms Abdominal/Gastrointestinal: Abdominal Pain, No Nausea, No Vomiting Genitourinary Symptoms: No Symptoms Musculoskeletal: Other (generalized weakness) Skin: No Symptoms Objective Exam General Appearance: no apparent distress, alert Neurologic Exam: alert, cooperative Skin Exam: normal color, warm, dry, No rash Respiratory Exam: other (one wheeze in right lower lung field; mild tachypnea; no retractions; speaking in full sentences; deep cough) Cardiovascular Exam: regular rate/rhythm, normal heart sounds, No murmur, No friction rub, No gallop Gastrointestinal/Abdomen Exam: soft, other (Binder in place with bandages and drain under this) Extremity Exam: other (no c/c/e) OBJECTIVE DATA Vital Signs: Vital Signs - 24 hr Temp Pulse Resp BP BP Pulse Ox 07/04/18 08:00 97.8 F 65 20 170/72 92 L 07/04/18 04:02 16 07/04/18 04:00 97.8 F 61 61 H 172/73 163/69 91 L 07/04/18 02:00 16 07/04/18 00:00 98.0 F 74 17 180/74 92 L 07/03/18 22:22 73 90 H 90 L 07/03/18 19:00 98.5 F 67 18 110/54 91 L 07/03/18 15:04 98.8 F 87 20 136/74 92 L 07/03/18 14:04 98.8 F 07/03/18 13:45 92 L 07/03/18 10:53 93 L 07/03/18 10:07 97.8 F 78 20 158/74 97 Oxygen-Last 24 hours O2 Percentage 2 Liters = 28% O2 Percentage 2 Liters = 28% O2 Percentage 3 Liters = 32% Pain Assessment - Last Documented Pain Intensity 0 Pain Scale Used 0-10 Pain Scale Intake and Output: Intake & Output 07/02/18 07/03/18 07/04/18 07/05/18 06:59 06:59 06:59 06:59 Intake Total 2340 7547 1160 Output Total 3962 0715 0750 Balance -199 -1253 -1330 Weight 85.7 kg Lab Results: Lab Results-Last 24 Hours 06/28/18 07/04/18 07/04/18 Range/Units 08:18 05:40 05:40 WBC 7.4 (4.0-10.5) K/mm3 RBC 3.58 L (4.1-5.4) M/mm3 Hgb 10.5 L (12.0-16.0) gm/dl Hct 32.1 L (35-47) % MCV 89.7 (78-100) fl MCH 29.3 (26-32) pg MCHC 32.7 (32-36) g/dl RDW 14.3 H (11.5-14.0) % Plt Count 236 (150-450) K/mm3 MPV 10.1 H (6-9.5) fl Segmented Neutrophils 79 H (36.0-66.0) % Band Neutrophils 3 H (0.0-2.0) % Lymphocytes (Manual) 14 L (24-44) % Monocytes (Manual) 4 (0.0-12.0) % Platelet Estimate NORMAL (NORMAL) RBC Morphology NORMAL Sodium 131 L (137-145) mmol/L Potassium 3.0 L (3.5-5.1) mmol/L Chloride 92 L (98-107) mmol/L Carbon Dioxide 30 (22-30) mmol/L Anion Gap 11.6 (5-15) MEQ/L BUN 10 (7-17) mg/dL Creatinine 1.02 (0.52-1.04) mg/dL Estimated GFR 54.6 ML/MIN Glucose 118 H (74-106) mg/dL Calcium 7.7 L (8.4-10.2) mg/dL Total Bilirubin 0.80 (0.2-1.3) mg/dL AST 22 (14-36) U/L ALT 16 (0-35) U/L Alkaline Phosphatase 56 (38-126) U/L Serum Total Protein 5.2 L (6.3-8.2) g/dL Albumin 2.8 L (3.5-5.0) g/dL Surg PTH Diagnosis See Note H Radiology Exams: Radiology Procedures Category Date Time Status CHEST 2 VIEWS (PA AND LAT) Routine Exams 07/02/18 09:15 Completed Multi-Disciplinary Progress Notes: Multi-Disciplinary Progress Notes 07/03/18 09:29 Case Management Note by Taylor Hernandez REFERRAL CALLED TO [facility], SPOKE WITH NADINE, REPORTS THAT SHE WILL EVAL TODAY. Initialized on 07/03/18 09:29 - END OF NOTE Assessment/Plan (1) Mass of cecum Current Visit: Yes Status: Acute Assessment & Plan: POD #5 from right hemicolectomy. General surgeon is following. Her diet has been advanced to regular but she has not eaten much this morning and states she doesn't feel well. Code(s): K63.9 - DISEASE OF INTESTINE, UNSPECIFIED (2) S/P right hemicolectomy Current Visit: Yes Status: Acute Assessment & Plan: Management per surgeons. Code(s): Z90.49 - ACQUIRED ABSENCE OF OTHER SPECIFIED PARTS OF DIGESTIVE TRACT (3) History of TIA (transient ischemic attack) Current Visit: Yes Status: Chronic Assessment & Plan: Will check with general surgeons when her plavix can be restarted. Code(s): Z86.73 - PRSNL HX OF TIA (TIA), AND CEREB INFRC W/O RESID DEFICITS (4) Abdominal pain Current Visit: No Status: Acute Assessment & Plan: Currently controlled. Code(s): R10.9 - UNSPECIFIED ABDOMINAL PAIN (5) Liver metastases Current Visit: Yes Status: Acute Assessment & Plan: Awaiting path report from sample sent from surgery of colon mass. Code(s): C78.7 - SECONDARY MALIG NEOPLASM OF LIVER AND INTRAHEPATIC BILE DUCT (6) Anemia Current Visit: Yes Status: Acute Qualifiers: Anemia type: unspecified type Qualified Code(s): D64.9 - Anemia, unspecified Assessment & Plan: s/p 2 units PRBC's on 07/02/18 Code(s): D64.9 - ANEMIA, UNSPECIFIED (7) Hypokalemia Current Visit: Yes Status: Acute Assessment & Plan: She is receiving IV potassium replacement. Magnesium level ordered. Code(s): E87.6 - HYPOKALEMIA (8) Leukocytosis Current Visit: Yes Status: Acute Assessment & Plan: Now resolved. Pharmacist Sinan reports she was on levofloxacin for 3 days starting 06/25/18 and flagyl for 4 days startin 06/25/18 and then Zosyn from 06/28 to 06/30 and then restarted 07/02. She continues on Zosyn at this time. She continues to have a left shift. Code(s): D72.829 - ELEVATED WHITE BLOOD CELL COUNT, UNSPECIFIED (9) Hypothyroidism Current Visit: Yes Status: Acute Assessment & Plan: Continue levothyroxine. Code(s): E03.9 - HYPOTHYROIDISM, UNSPECIFIED (10) Hypertension Current Visit: Yes Status: Acute Assessment & Plan: Continue beta pavel. Code(s): I10 - ESSENTIAL (PRIMARY) HYPERTENSION (11) Pacemaker Current Visit: Yes Status: Acute Assessment & Plan: Present Code(s): Z95.0 - PRESENCE OF CARDIAC PACEMAKER
[2018-07-04] MEDS ORDERED: Magnesium Sulfate 1 GM/2 ML VIAL*** 2 GM in Sodium Chloride 0.9% 100 ML IVPB 100 ML IV SCH (10:00)
[2018-07-04] MEDS ORDERED: Magnesium Sulfate 1 GM/2 ML VIAL IV ONE (10:00)
[2018-07-04] MEDS: NORCO 5/325 MG PO PRN ×2 (10:30→20:18)
[2018-07-04] MEDS: Lopressor 50 MG PO SCH ×2 (10:31→21:24)
[2018-07-04] MEDS: SYNTHROID 25 MCG PO SCH (10:31)
[2018-07-04] MEDS: Acidophilus TABLET PO SCH (10:31)
[2018-07-04] MEDS: Patanol 1% OPHTHALMIC OP SCH (10:39)
[2018-07-04] MEDS: PROTONIX 40 MG IV IV SCH (11:12)
[2018-07-05] MEDS: Zosyn 3.375GM/100 Ml D5W 3.375 GM/100 ML IVPB IV SCH ×3 (00:48→12:25)
[2018-07-05 07:47] LABS: Mean Cell Volume 90.6 fl (78-100); Mean Corpuscular Hemoglobin 29.2 pg (26-32); Mean Corpuscular Hgb Concent. 32.3 g/dl (32-36); Platelet Count 255 K/mm3 (150-450); Red Blood Count 3.42 M/mm3 (4.1-5.4); Red Cell Distribution Width 14.7 % (11.5-14.0); White Blood Count 5.3 K/mm3 (4.0-10.5)
[2018-07-05 07:51] LABS: ALBUMIN 2.6 g/dL (3.5-5.0); ANION GAP 10.9 MEQ/L (5-15); BILIRUBIN,TOTAL 0.5 mg/dL (0.2-1.3); Calcium 7.8 mg/dL (8.4-10.2); Creatinine 1 1.13 mg/dL (0.52-1.04); MAGNESIUM 2.1 mg/dL (1.6-2.3); Potassium 3.2 mmol/L (3.5-5.1)
[2018-07-05 08:40] LABS: ANISOCYTOSIS 1+; ATYPICAL LYMPHS 4 %; BAND 2 % (0.0-2.0); Eosinophil 3 % (0.00-3.0); Lymphocytes 25 % (24-44); Monocyte 15 % (0.0-12.0); Neutrophils 51 % (36.0-66.0); Platelet Estimate NORMAL (NORMAL); Polychromasia 1+; Total Cells Counted 100
[2018-07-05 08:49] LABS: Granulocyte Absolute (ANC) 2.78 (1.4-6.9)
[2018-07-05] MEDS: Patanol 1% OPHTHALMIC OP SCH (10:37)
[2018-07-05] MEDS: Acidophilus TABLET PO SCH (10:37)
[2018-07-05] MEDS: Lopressor 50 MG PO SCH (10:37)
[2018-07-05] MEDS: SYNTHROID 25 MCG PO SCH (10:37)
[2018-07-05] MEDS: PROTONIX 40 MG IV IV SCH (10:37)
[2018-07-05] MEDS: NORCO 5/325 MG PO PRN (13:03)
--- NOTE | 2018-07-05 16:20 | PCM.DS ---
Discharge Summary Date of Admission: 06/28/18 07:56 Admitting Physician: KIERRA LORENZO Consults: Consults on Case 06/28/18 09:06 Consult Surgery ROUTINE 06/28/18 09:07 Consult Cardiology ROUTINE Primary Care Provider: KIERRA LORENZO Allergies Allergies No Known Drug Allergies Allergy (Verified 06/23/18 18:46) Hospital Summary - Hospital Course Hospital Course: Pt is an 87yo female pt of Dr. lorenzo's with hypothyroidism, MATEUS, hx TIA, and hypertension who came to the ER with bowel complaints; CT showed bowel wall thickening. She had a colonoscopy with Dr. 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 She had a R hemicolectomy and is now POD #6. She has been stable postoperatively. She was very weak after the surgery and has been recovering slowly. Yesterday she was up to the chair and felt tired but has no specific complaints today. Her biggest worry seems to be about going to a new environment (the longterm) for rehab. She was on Levaquin from 06/25-06/27/18 and flagyl from 06/25-06/28/18. She was on zosyn from -06/30/18 and again restarted on 07/02/18. During her stay she received 2 units of PRBC for hgb 7.2. Her potassium has been low, between 3-3.4, and she did receive IV potassium yesterday. She started and tolerated a regular diet yesterday. - Vitals & Intake/Output Vital Signs: Vital Signs Temperature 97.5 F 07/05/18 12:00 Pulse Rate 70 07/05/18 12:00 Respiratory Rate 20 07/05/18 12:00 Blood Pressure 142/66 07/05/18 12:00 O2 Sat by Pulse Oximetry 94 L 07/05/18 13:29 Oxygen-Last Documented O2 Percentage 2 Liters = 28% Intake & Output: Intake & Output 07/03/18 07/04/18 07/05/18 07/06/18 11:59 11:59 11:59 11:59 Intake Total 2977 1100 240 360 Output Total 4460 2355 315 Balance -1483 -1255 -75 360 Weight 85.7 kg - Lab Result Diagrams: 07/05/18 04:00 07/05/18 06:08 Lab Results-Last 24 Hrs: Lab Results-Last 24 Hours 07/05/18 07/05/18 Range/Units 04:00 06:08 WBC 5.3 (4.0-10.5) K/mm3 RBC 3.42 L (4.1-5.4) M/mm3 Hgb 10.0 L (12.0-16.0) gm/dl Hct 31.0 L (35-47) % MCV 90.6 (78-100) fl MCH 29.2 (26-32) pg MCHC 32.3 (32-36) g/dl RDW 14.7 H (11.5-14.0) % Plt Count 255 (150-450) K/mm3 MPV 11.0 H (6-9.5) fl Absolute Granulocytes 2.78 (1.4-6.9) Segmented Neutrophils 51 (36.0-66.0) % Band Neutrophils 2 (0.0-2.0) % Lymphocytes (Manual) 25 (24-44) % Monocytes (Manual) 15 H (0.0-12.0) % Eosinophils (Manual) 3 (0.00-3.0) % Atypical Lymphocytes 4 % Platelet Estimate NORMAL (NORMAL) RBC Morphology ABNORMAL Polychromasia 1+ Anisocytosis 1+ Sodium 135 L (137-145) mmol/L Potassium 3.2 L (3.5-5.1) mmol/L Chloride 98 (98-107) mmol/L Carbon Dioxide 29 (22-30) mmol/L Anion Gap 10.9 (5-15) MEQ/L BUN 12 (7-17) mg/dL Creatinine 1.13 H (0.52-1.04) mg/dL Estimated GFR 48.5 ML/MIN Glucose 112 H (74-106) mg/dL Calcium 7.8 L (8.4-10.2) mg/dL Magnesium 2.1 (1.6-2.3) mg/dL Total Bilirubin 0.50 (0.2-1.3) mg/dL AST 18 (14-36) U/L ALT 14 (0-35) U/L Alkaline Phosphatase 51 (38-126) U/L Serum Total Protein 5.0 L (6.3-8.2) g/dL Albumin 2.6 L (3.5-5.0) g/dL Micro Results-Entire Visit: Microbiology 06/29/18 09:31 Urine Culture - Final Catherized NO GROWTH 06/23/18 20:42 Stool Culture - Final Stool - Procedures and Test Procedures and Tests throughout Hospitalization: Therapy Orders & Screens 06/23/18 11:00 Oxygen Nasal Cannula 2 lpm Comment: Diagnosis: diarrhea 06/26/18 06:47 Respiratory Therapy Assessment DAILY Comment: Diagnosis: diarrhea 06/28/18 11:07 EKG ONCE Comment: CARDIAC CLEARANCE Diagnosis: diarrhea 06/29/18 15:23 Incentive Spirometry TID Comment: Diagnosis: MASS IN CECUM, R SIDED COLITIS 07/03/18 08:11 PT Eval & Treat (MD Order) ROUTINE Reason for Eval:: post op weakness. [facility]P REHAB AT [facility], NEED YOUR EVAL Diagnosis: MASS IN CECUM, R SIDED COLITIS Discharge Exam General Appearance: no apparent distress, alert Neurologic Exam: oriented x 3, cooperative Skin Exam: normal color, warm, dry, No rash Eye Exam: eyes nml inspection Ears, Nose, Throat Exam: moist mucous membranes Respiratory Exam: normal breath sounds, lungs clear, crackles/rales (faint bibasilar), No rhonchi, No wheezing Cardiovascular Exam: regular rate/rhythm, normal heart sounds, No murmur Extremity Exam: normal inspection, No pedal edema, No swelling Final Diagnosis/Problem List - Final Discharge Diagnosis/Problem (1) Status post colon resection Current Visit: Yes Status: Acute Assessment & Plan: POD #6 s/p R hemicolectomy. Doing well. Has been on zosyn; will finish up 1 week with augmentin (3 more days). Code(s): Z90.49 - ACQUIRED ABSENCE OF OTHER SPECIFIED PARTS OF DIGESTIVE TRACT (2) GERD (gastroesophageal reflux disease) Current Visit: No Status: Chronic Code(s): K21.9 - GASTRO-ESOPHAGEAL REFLUX DISEASE WITHOUT ESOPHAGITIS (3) History of TIA (transient ischemic attack) Current Visit: Yes Status: Chronic Code(s): Z86.73 - PRSNL HX OF TIA (TIA), AND CEREB INFRC W/O RESID DEFICITS (4) Hypertension Current Visit: Yes Status: Acute Code(s): I10 - ESSENTIAL (PRIMARY) HYPERTENSION (5) Hypothyroidism Current Visit: Yes Status: Acute Code(s): E03.9 - HYPOTHYROIDISM, UNSPECIFIED - Discharge Disposition: DC TO [facility] Condition: Stable Prescriptions: New Amoxicillin/Potassium Clav [Augmentin 875-125 Tablet] 875 mg PO BID #6 tablet Hydrocodone/APAP 5-325 Tab^^^ [[place] 5-325 Tablet^^^] 1 each PO Q4H PRN #30 tablet MDD 6 PRN Reason: Pain Continue Levothyroxine Sodium 25 Mcg [Synthroid 25 Mcg] 25 mcg PO DAILY Oxybutynin Chloride Xl 5 mg [Ditropan XL 5 MG] 10 mg PO DAILY Famotidine 20 mg [Pepcid 20 MG] 20 mg PO DAILY Clopidogrel Bisulfate 75 mg [PLAVIX 75 MG Tablet] 75 mg PO DAILY #30 tablet Omeprazole 20 mg PO DAILY Metoprolol Tartrate 100 mg PO BID Olopatadine HCl Ophth [Patanol 1% OPHTHALMIC] 1 drop OP DAILY Bacillus Coagulans [Probiotic] 1 each PO DAILY Follow up with: KIERRA LORENZO [Primary Care Provider] - 1 Week ELI EMANUEL [CONSULTING PHYSICIAN] - 1 Week BEATA FELIX MD [ASSOCIATE STAFF] - 1 Week
[2018-07-05 17:31] VITALS: BP 121/54; PULSE 72; O2SAT 93
== END 2018-07-05 18:45 | DRG 330 ==
LOC: ED 18:35 → MED SURG 22:56 → OBSVTOIN 06-28 07:56 → MED SURG 06-29 10:47 → ICU 06-29 10:51 → MED SURG 07-01 08:46
PROVIDERS: ADMIT Family Medicine; ATTEND Family Medicine
PROC: 0DBH8ZX Excision of Cecum, Via Natural or Artificial Opening Endoscopic, Diagnostic (ICD-10-PCS; principal; 2018-06-29)
PROC: 0DTF0ZZ Resection of Right Large Intestine, Open Approach (ICD-10-PCS; 2018-06-29)
PROC: 0DBU0ZZ Excision of Omentum, Open Approach (ICD-10-PCS; 2018-06-29)
PROC: 0WBF0ZX Excision of Abdominal Wall, Open Approach, Diagnostic (ICD-10-PCS; 2018-06-29)
DX: R10.84 Generalized abdominal pain (principal); R19.03 Right lower quadrant abdominal swelling, mass and lump; R19.7 Diarrhea, unspecified; C18.0 Malignant neoplasm of cecum; R18.8 Other ascites; C78.7 Secondary malignant neoplasm of liver and intrahepatic bile duct; C18.2 Malignant neoplasm of ascending colon; C77.2 Secondary and unspecified malignant neoplasm of intra-abdominal lymph nodes; R11.2 Nausea with vomiting, unspecified; K21.9 Gastro-esophageal reflux disease without esophagitis; E03.9 Hypothyroidism, unspecified; Z79.899 Other long term (current) drug therapy; Z86.73 Personal history of transient ischemic attack (TIA), and cerebral infarction without residual deficits; I10 Essential (primary) hypertension; Z79.01 Long term (current) use of anticoagulants; Z95.0 Presence of cardiac pacemaker; K52.9 Noninfective gastroenteritis and colitis, unspecified; E87.6 Hypokalemia; D64.9 Anemia, unspecified; D72.829 Elevated white blood cell count, unspecified
CPT/HCPCS: 36000; 36415; 36430; 36600; 44140; 45380; 49255; 49999; 64488; 71045; 71046; 74176; 76937; 76942; 80048; 80053; 81001; 82150; 82375; 82803; 83690; 83735; 84132; 85014; 85018; 85025; 85027; 86850; 86900; 86901; 86922; 87045; 87046; 87086; 87177; 87209; 87335; 87493; 93005; 94760; 96360; 97110; 97161; 97530; 99285; G0378; P9016; Q3014; 36620; 88305; 88307; 88309; 88341; 88342; 99100; J0330; J0694; J1100; J1650; J1956; J2250; J2270; J2370; J2405; J2543; J2550; J2704; J2930; J3010; J3475; J3480; L0625; P9047; A9270-GY